=== PATIENT | female | born 1945 | race Caucasian/White ===

== ENCOUNTER → 2019-03-14 00:01 | Outpatient (RCR) | payer MEDICARE, OTHER, SELFPAY | LOC: WOUND 02-14 14:54 | PROVIDERS: Family Provider Family Medicine; Visit Provider Thoracic Surgery (Cardiothoracic Vascular Surgery) | DX: I96 Gangrene, not elsewhere classified (principal); L89.893 Pressure ulcer of other site, stage 3; L02.416 Cutaneous abscess of left lower limb; Z89.522 Acquired absence of left knee | CPT/HCPCS: 10060; 11042 ×2; 15271 ×3; 87070; 87075; 87205; Q4110 ×3 ==

== ENCOUNTER 2019-03-24 06:51 | Outpatient (CLI) | payer MEDICARE, OTHER, SELFPAY ==
--- NOTE | 2019-03-24 06:57 | ECG_ITS ---
NAME OF STUDY: LEXISCAN SESTAMIBI STRESS TEST INDICATION: Coronary Artery Disease, LEXISCAN STRESS TEST ORDERING PHYSICIAN: Estrella CLINICAL INFORMATION: Coronary artery disease, peripheral arterial disease, recurrent chest pain INTERPRETATION: 1. The patient was brought to the laboratory where Lexiscan was infused over 20 seconds. The resting blood pressure was 153/82. Maximum blood pressure was 196/126. The resting heart rate was 92 beats per minute. The maximum heart rate is 136 beats per minute. 2. The baseline electrocardiogram reveals sinus rhythm with poor R-wave progression and nonspecific ST-T wave changes 3. With Lexiscan infusion, there were no ST segment changes to suggest ischemia. 4. The patient experienced no symptoms or arrhythmias during the examination. CONCLUSION: 1. Unremarkable Lexiscan infusion. 2. Nuclear imaging to follow. Electronically Signed On 03-24-2019 14:36:33 FOOD QUALITY TESTER by Saurabh De La Rosa M.D. [id number]
--- NOTE | 2019-03-24 06:57 | NMCV_ITS ---
NM MIBI/MIBI Stress/Rest [id number] Bridgette Malik Age: 74 Gender: F : 1945 Exam Date: 03/24/2019 07:45 Ordering Phys: Saurabh De La Rosa MD ([email or web address]) Technologist: SEGUNDO Dudley Exam Location: [facility] Indications: CAD STRESS TEST Please see separate stress test report in [facility] for full findings IMAGE PROTOCOL Radiopharmaceutical Dose (mCi) Administration Site Administered by Rest: Tc-99m 10.6 IV SEGUNDO Dudley Sestamibi Stress:Tc-99m 31.7 IV SEGUNDO Dudley Sestamibi Rest: 24-Mar-2019 60 Discovery 630 Stress: 24-Mar-2019 60 Discovery 630 0.4mg Lexiscan. Supine position only as patient was unable to lay prone. SPECT RESULTS Technical Quality: Good Raw Data Analysis: Normal Image Corrections: No attenuation or motion correction applied Summed Stress Score: 24 Summed Rest Score: 17 Summed Difference Score: 7 PERFUSION FINDINGS Large area of fixed perfusion defect noted in basal to distal inferior and basal to mid inferolateral wall on both rest and stress images surrounded by mild reversibility suggestive of old myocardial infarction surrounded by mild leonie-infarct ischemia in either dominant RCA or circumflex territory. FUNCTIONAL RESULTS (calculated via Gated SPECT) Stress Image LV EF (%): 41 Stress EDV (mL):126 TID: 0.93 Stress ESV (mL):74 Rest Image LV EF (%): 41 FUNCTIONAL FINDINGS: Inferior and inferolateral wall akinesis IMPRESSIONS Large area of old myocardial infarction versus scarring noted in basal to distal inferior and inferolateral wall surrounded by mild leonie-infarct noted. Most likely represent dominant RCA or circumflex artery lesion. EKG segment will be documented separately. Colton Mason MD (Electronically Signed) Final Date: 24 March 2019 13:19 S
[2019-03-24 07:09] VITALS: BMI 24.3
[2019-03-24] MEDS: regadenoson 0.4 Mg/5 ml Syringe IVP (08:58)
[2019-03-24] MEDS: aminophylline 25 mg/mL SDV 10 mL IVP (09:06)
[2019-03-24 10:14] VITALS: BP 169/77; PULSE 106
== END 2019-03-24 06:52 | disposition home or self-care (01) ==
LOC: CDL 06:52
PROVIDERS: PCP Nurse Practitioner Family; Visit Provider Internal Medicine Cardiovascular Disease
DX: I25.10 Atherosclerotic heart disease of native coronary artery without angina pectoris (principal); Z95.5 Presence of coronary angioplasty implant and graft
CPT/HCPCS: 78452; 93017; 96374; A9500; J0280; J2785

== ENCOUNTER 2019-04-11 14:55 | Outpatient (RCR) | payer MEDICARE, OTHER, SELFPAY | END 2019-04-14 23:59 | disposition home or self-care (01) | LOC: WOUND 14:55 | PROVIDERS: Family Provider Family Medicine; PCP Family Medicine; Visit Provider Thoracic Surgery (Cardiothoracic Vascular Surgery) | DX: I96 Gangrene, not elsewhere classified (principal); L89.893 Pressure ulcer of other site, stage 3; L02.416 Cutaneous abscess of left lower limb; Z89.512 Acquired absence of left leg below knee | CPT/HCPCS: 10060; 11042; G0463; J2001 ==

== ENCOUNTER → 2019-04-12 13:47 | Outpatient (BNVA) | payer MEDICARE, OTHER, SELFPAY | PROVIDERS: PCP Nurse Practitioner Family; Visit Provider Family Medicine | DX: L72.3 Sebaceous cyst (principal); G57.92 Unspecified mononeuropathy of left lower limb; E78.5 Hyperlipidemia, unspecified; I10 Essential (primary) hypertension | CPT/HCPCS: 80053; 80061; 82044; 85025 ==

== ENCOUNTER 2019-04-24 05:51 | Day surgery (SDC) | payer MEDICARE, OTHER, SELFPAY ==
[2019-04-24] VITALS (9 sets, daily range): BP systolic 117–153; BP diastolic 51–73; PULSE 74–88; RESP 12–23; TEMP 36.4–36.8; O2SAT 93–100; BMI 24.4
[2019-04-24] MEDS: sodium chloride 0.9% 1,000 ML 30 ML IV (06:21)
--- NOTE | 2019-04-24 06:23 | PM.HPUD ---
H&P update H&P Update: DATE OF SURGERY/PROCEDURE: 04/24/19 DATE H&P PERFORMED: 04/18/19 H&P UPDATE INFORMATION: H&P completed within last 30 days, No changes to prior documentation and H&P is in [facility] on date indicated PREOP DIAGNOSIS: Dehiscence left AKA incision laterally; right facial cyst PRIMARY INDICATION FOR PROCEDURE: Debridement and removal of right facial cyst PLANNED PROCEDURE: Operation Date: 04/24/19 07:00 Proposed Procedures p Debridement aka wound; removal of right facial cyst- Candido Page MD Conscious Sedation: Patient reassessed prior to sedation, with no change noted: Yes PHYSICAL EXAM: alert, oriented x 3, regular rate & rhythm and operative site marked ADDITIONAL INFORMATION: Per anesthesia department Full H&P Medications/Allergies: Current Medications: Current Medications Generic Name Dose Route Start Last Admin Trade Name Freq PRN Reason Stop Dose Admin Sodium Chloride 1,000 mls @ 30 ml s/hr 04/24/19 06:15 04/24/19 06:21 Sodium Chloride 0.9% IV 04/25/19 06:14 30 mls/hr .Q24H CORKY Administration Perinent History: Medical/Surgical History: Medical History (Updated 04/12/19 @ 13:41 by Jhoana Gross DO) Above knee amputation of left lower extremity (Acute) 09/2018 Acquired hallux rigidus of left foot (Acute) Acute on chronic combined systolic (congestive) and diastolic (congestive) heart failure (Acute) Anemia, deficiency (Acute) Aneurysm of aorta (Acute) ASHD (arteriosclerotic heart disease) (Acute) Bilateral carotid artery occlusion (Acute) Bilateral carotid bruits (Acute) CKD (chronic kidney disease) (Acute) Colonization with multidrug-resistant bacteria (Acute) COPD (chronic obstructive pulmonary disease) (Acute) Coronary artery disease with angina pectoris (Acute) Dyslipidemia (Chronic) E. coli infection (Acute) GERD (gastroesophageal reflux disease) (Acute) History of stent insertion of renal artery (Acute) X 3 LEFT KIDNEY HTN (hypertension) (Chronic) Ischemic cardiomyopathy (Acute) Mitral regurgitation (Acute) Neuropathic pain of left lower extremity (Chronic) Non-functioning kidney (Acute) Non-healing wound of amputation stump (Acute) Old [place] (myocardial infarction) (Acute) PAD (peripheral artery disease) (Acute) Skin wound from surgical incision (Acute) Sleep apnea (Acute) Vasculopathy (Acute) Family History: Family History (Updated 03/24/19 @ 07:22 by Lucero Guaman RN) Father CAD (coronary artery disease) Social History: Social History Smoking and tobacco status: current every day smoker cigarettes Packs smoked per day: 0.5 (PPD) Alcohol intake: current Alcohol intake frequency: holidays/special occasions only
--- NOTE | 2019-04-24 06:43 | ANES.PREANE2 ---
Pre-Anesthetic Assessment Pre-Anesthetic Assessment: Height/Weight: Height 1.6 m Weight 62.596 kg Temp Pulse Resp BP Pulse Ox 97.5 F L 74 18 121/66 94 04/24/19 06:03 04/24/19 06:03 04/24/19 06:03 04/24/19 06:03 04/24/19 06:03 Preop Diagnosis: Dehiscence left AKA incision laterally; right facial cyst Proposed Procedure: Operation Date: 04/24/19 07:00 Proposed Procedures p Debridement aka wound(Not Applicable) - Candido Page MD Last intake: Intake Last Liquid Date 04/23/19 Last Liquid Time 18:00 Last Solid Date 04/23/19 Last Solid Time 16:00 Social: Social History: Alcohol (occ) and Tobacco Exam: Pre-Anes Outpt Exam: alert, oriented x 3, clear to auscultation bilaterally and regular rate & rhythm Airway: Submandibular: WNL Cervical ROM: Other (limited) MP: 1 Dentition: Full Pulmonary: Pulmonary: COPD and OLGUIN CV/HEM: CV/HEM: Anemia, CAD, CHF, HTN, OR and PVD : : Chronic renal Insufficiency Hepatic: Hepatic: None reported GI: GI: None reported Metabolic: Metabolic: Hyperlipidemia Musc/skel: Musc/skel: OA/DJD and Weakness Neuropsych: Neuropsych: Anxiety, Depression and Neuropathy Anesthetic Plan: ASA status: 4 Anesthesia: Anesthesia Evaluation and General Risk of > 500 ml blood loss (7ml/kg in children): No Meds/Allergies Current Medications: Current Medications Generic Name Dose Route Start Last Admin Trade Name Freq PRN Reason Stop Dose Admin Sodium Chloride 1,000 mls @ 30 ml s/hr 04/24/19 06:15 04/24/19 06:21 Sodium Chloride 0.9% IV 04/25/19 06:14 30 mls/hr .Q24H CORKY Administration PFSH Anesthesia PFSH: Medical History Above knee amputation of left lower extremity (Acute) 09/2018 Acquired hallux rigidus of left foot (Acute) Acute on chronic combined systolic (congestive) and diastolic (congestive) heart failure (Acute) Anemia, deficiency (Acute) Aneurysm of aorta (Acute) ASHD (arteriosclerotic heart disease) (Acute) Bilateral carotid artery occlusion (Acute) Bilateral carotid bruits (Acute) CKD (chronic kidney disease) (Acute) Colonization with multidrug-resistant bacteria (Acute) COPD (chronic obstructive pulmonary disease) (Acute) Coronary artery disease with angina pectoris (Acute) Dyslipidemia (Chronic) E. coli infection (Acute) GERD (gastroesophageal reflux disease) (Acute) History of stent insertion of renal artery (Acute) X 3 LEFT KIDNEY HTN (hypertension) (Chronic) Ischemic cardiomyopathy (Acute) Mitral regurgitation (Acute) Neuropathic pain of left lower extremity (Chronic) Non-functioning kidney (Acute) Non-healing wound of amputation stump (Acute) Old [place] (myocardial infarction) (Acute) PAD (peripheral artery disease) (Acute) Skin wound from surgical incision (Acute) Sleep apnea (Acute) Vasculopathy (Acute) Surgical History H/O breast surgery (Acute) H/O cataract extraction (Acute) H/O facial fracture repair (Acute) History of AAA (abdominal aortic aneurysm) repair (Acute) 06/2015 History of hysterectomy (Acute) Presence of stent in coronary artery (Acute) S/P amputation (Acute) Family History Father CAD (coronary artery disease) Social History Smoking and tobacco status: current every day smoker cigarettes Packs smoked per day: 0.5 (PPD) Alcohol intake: current Alcohol intake frequency: holidays/special occasions only Data Anesthesia Cardiac Studies: No Data to Display
[2019-04-24 06:44] LABS: Basophils # 0.1 10^3/uL (0.0-0.1); Basophils % 0.7 %; Eosinophils # 0.2 10^3/uL (0.0-0.8); Hematocrit 36.2 % (37.0-47.0); Hemoglobin 11.2 g/dL (11.5-15.3); Lymphocytes % 23.3 %; Mean Corpuscular HGB Conc 30.9 g/dL (30.0-36.0); Mean Corpuscular Hemoglobin 27.6 pg (28.0-34.0); Mean Corpuscular Volume 89.2 fL (81-99); Monocytes # 0.6 10^3/uL (0.2-0.9); Monocytes % 7.3 %; Neutrophils # 5.6 10^3/uL (1.8-7.7); Neutrophils % 66.3 %; Nucleated Red Blood Cells % 0 %; Platelet Count 244 10^3/cmm (130-400); Red Blood Count 4.06 10^6/uL (4.1-5.3); Red Cell Distribution Width 13.7 % (12.1-15.1); White Blood Count 8.4 10^3/uL (4.0-10.0)
[2019-04-24 06:54] LABS: INR 0.99 (0.8-1.2)
[2019-04-24 07:07] LABS: Anion Gap 16.5 (5-19); Blood Urea Nitrogen 30 mg/dL (8-23); Calcium 9.7 mg/dL (8.5-10.5); Carbon Dioxide 27 mmol/L (22-29); Chloride 101 mmol/L (98-107); Glucose 102 mg/dL (65-115); Osmolality Calculated 287 mOsm/kg (285-295); Potassium 4.5 mmol/L (3.5-5.1); Sodium 140 mmol/L (136-145)
[2019-04-24] MEDS: ceFAZolin 1,000 mg SDV 1000 MG IRRIGATION (07:24)
[2019-04-24] MEDS: lidocaine 1% INJ 20 mL IM (07:37)
[2019-04-24] MEDS: neomycin-poly-bacitracin oint 28 gm 1 APPLIC TOPICAL (07:38)
--- NOTE | 2019-04-24 08:01 | PM.OP ---
Operative Report Date of procedure: April 24, 2019 Pre-op Diagnosis: Dehiscence left AKA incision laterally; right facial cyst Post-op diagnosis: same Procedure Done: Epidermal cyst excision right face malar region; Debridement of lateral wound left AKA wound measurements after debridement 2.5 cm in length, 1 cm in width, 6 cm in depth Specimens removed/disposition: Cultures from left AKA wound Surgeon: Candido Page Anesthesia: General Complications: None Condition: stable Disposition: PACU Brief History: 74-year-old female status post left above-knee amputation for severe non-extractable peripheral vascular disease with distal tissue loss. Wound is healed except for the lateral margin which continues to require local debridements in the wound care service. I recommended formal exploration under anesthesia. She also has a right facial cyst which clinically appears to be an epidermal cyst. She is requested that we remove it as well. Details the risk of the procedure carefully discussed. Proper consents reviewed and signed. Procedure: After individually and separately sterile prepping and draping both areas, initially a incision was made with a #15 scalpel blade over the cyst in the malar region of the right face. This continue down through the epidermis and using a very small hemostat bluntly dissecting free this epidermal cyst. Was completely circumferentially dissected free it was removed intact. Wound was irrigated with antibiotic solution. Two 3-0 Vicryl sutures were placed deep followed by interrupted 5-0 nylon suture. Triple antibiotic ointment was then applied followed by sterile dressing. We then turned our attention to the lateral left AKA wound. Sharp debridement was performed utilizing Metzenbaum scissors and a #15 scalpel blade where a cavity was entered just below the bed of the wound. This extended deeper 6 operators. There was no tyra purulence noted though quite a bit of fibrous tissue was excised. Specimens were collected for culture. Once completed, the wound was carefully irrigated. Hemostasis confirmed. Final measurements were 2.5 cm in length by 1 cm in width by 6 cm of depth. Wet-to-dry dressing was then applied followed by a covered sponge dressing. Ms. Malik tolerated procedure well she is awakened extubated and taken to the postoperative care unit. I did consumer credit counselor with family completion of the procedure. She will be seen in wound care services tomorrow.
--- NOTE | 2019-04-24 08:15 | SUR.PHASEI ---
pt awakes to voice but remains very drowsy, vss incision to rt cheek with charles stitches, lt stump dressing D/I ELEVATEDON PILLOW PT NOW ON 3LNC PT IN ON O2 AT HOME.
--- NOTE | 2019-04-24 08:36 | SUR.PHASEI ---
0822 PT AWAKE ALERT TO OPS TALKATIVE TAKING SIPS OF COFFEE, PT COUGHING UP THICK CLEAR SECRETIONS OFF AND ON.
== END 2019-04-24 09:22 | disposition home or self-care (01) ==
PROVIDERS: Family Provider Family Medicine; PCP Nurse Practitioner Family; Visit Provider Thoracic Surgery (Cardiothoracic Vascular Surgery)
PROC: (CPT 11042; principal; 2019-04-24 07:00)
PROC: (CPT 11042; 2019-04-24 07:00)
DX: T81.31XA Disruption of external operation (surgical) wound, not elsewhere classified, initial encounter (principal); L72.3 Sebaceous cyst; J44.9 Chronic obstructive pulmonary disease, unspecified; I25.10 Atherosclerotic heart disease of native coronary artery without angina pectoris; I11.0 Hypertensive heart disease with heart failure; I50.9 Heart failure, unspecified; I25.2 Old myocardial infarction; E78.5 Hyperlipidemia, unspecified; M19.90 Unspecified osteoarthritis, unspecified site; G47.30 Sleep apnea, unspecified; F17.210 Nicotine dependence, cigarettes, uncomplicated
CPT/HCPCS: 11042; 11440; 12345; 36416; 80048; 85025; 85610; 87070; 87075; 87205; 88304; J0690; J2001; J2405; J2704; J3010; J7030

== ENCOUNTER 2019-05-09 13:49 | Outpatient (RCR) | payer MEDICARE, OTHER, SELFPAY | END 2019-05-13 23:59 | disposition home or self-care (01) | LOC: WOUND 13:49 | PROVIDERS: Family Provider Family Medicine; PCP Nurse Practitioner Family; Visit Provider Thoracic Surgery (Cardiothoracic Vascular Surgery) | DX: L02.416 Cutaneous abscess of left lower limb (principal); L97.822 Non-pressure chronic ulcer of other part of left lower leg with fat layer exposed; Z89.612 Acquired absence of left leg above knee | CPT/HCPCS: 11042; 99213; G0463 ==

== ENCOUNTER 2019-06-13 13:05 | Outpatient (RCR) | payer MEDICARE, OTHER, SELFPAY | END 2019-06-13 23:59 | disposition home or self-care (01) | LOC: WOUND 13:05 | PROVIDERS: Family Provider Family Medicine; PCP Nurse Practitioner Family; Visit Provider Thoracic Surgery (Cardiothoracic Vascular Surgery) | DX: L02.416 Cutaneous abscess of left lower limb (principal); Z89.612 Acquired absence of left leg above knee | CPT/HCPCS: 11042; 15271; A6446; Q4110 ==

== ENCOUNTER 2019-07-11 13:17 | Outpatient (RCR) | payer MEDICARE, OTHER, SELFPAY | END 2019-07-13 23:59 | disposition home or self-care (01) | LOC: WOUND 13:17 | PROVIDERS: Family Provider Family Medicine; PCP Nurse Practitioner Family; Visit Provider Thoracic Surgery (Cardiothoracic Vascular Surgery) | DX: L02.416 Cutaneous abscess of left lower limb (principal); Z89.612 Acquired absence of left leg above knee | CPT/HCPCS: 11042; 99211; 99212 ==

== ENCOUNTER 2019-10-12 11:44 | Outpatient (CLI) | payer MEDICARE, OTHER, SELFPAY ==
--- NOTE | 2019-10-12 12:00 | USCV_ITS ---
Mlaik Bridgette Age: 74 Gender: F : 1945 Exam Date: 10/12/2019 11:38 Ordering Phys: Saurabh De La Rosa MD ([email or web address]) Technologist: Matilde Jones Exam Location[place] [facility] [place] Indication: CAROTID DX SURVEILLANCE Risk Factors: Previous Vascular Surgery: Right Brachial BP: / Left Brachial BP: / Right Left Velocity (cm/s) Spectral Plaque Velocity (cm/s) Spectral Plaque Syst/Diast Broadening Syst/Diast Broadening 38.10/ 12.40 Prox CCA 77.80 / 12.80 36.50/ 19.40 Mid CCA 41.10 / 13.90 40.40/ 20.20 Distal CCA 57.10 / 13.90 131.30/45.00 Prox ICA 116.90/ 46.30 136.70/32.40 Mid ICA 131.50/ 40.80 102.50/28.80 Distal ICA 101.20/ 28.90 88.60 ECA 73.00 3.74 ICA/CCA 3.20 Antegrade Vertebral Antegrade 46.00/ 7.90 cm/s 67.30/ 17.60 cm/s Tri Subclavian Tri 56.50 142.1 0 CONCLUSIONS Technically difficult study. Recommend Further evaluation with CTA as velocities may be underestimated. Right ICA stenosis 50-69%. Mild atheromatous plaque right carotid bulb/ICA. Left ICA stenosis <50%. Mild atheromatous plaque left carotid bulb/ICA. Normal antegrade Doppler flow noted in the right vertebral artery. Normal antegrade Doppler flow noted in the left vertebral artery. Ricardo Cummings MD (Electronically Signed) Final Date: 12 October 2019 16:37 S
== END 2019-10-12 11:45 | disposition home or self-care (01) ==
LOC: US 11:45
PROVIDERS: PCP Family Medicine; Visit Provider Internal Medicine Cardiovascular Disease
DX: I65.23 Occlusion and stenosis of bilateral carotid arteries (principal)
CPT/HCPCS: 93880

== ENCOUNTER → 2019-11-23 09:48 | Outpatient (BNVA) | payer MEDICARE, OTHER, SELFPAY | PROVIDERS: PCP Family Medicine; Referring Provider Internal Medicine Cardiovascular Disease; Visit Provider Dermatology | DX: D48.5 Neoplasm of uncertain behavior of skin (principal); L57.0 Actinic keratosis; L98.9 Disorder of the skin and subcutaneous tissue, unspecified; F17.210 Nicotine dependence, cigarettes, uncomplicated; D48.9 Neoplasm of uncertain behavior, unspecified | CPT/HCPCS: 11102; 17000; 17003; 88304; 99203; 99204; 99213 ==

== ENCOUNTER → 2020-02-29 14:47 | Outpatient (BNVA) | payer MEDICARE, OTHER, SELFPAY | PROVIDERS: PCP Family Medicine; Visit Provider Family Medicine | DX: J43.1 Panlobular emphysema (principal); J32.9 Chronic sinusitis, unspecified; I10 Essential (primary) hypertension; E78.5 Hyperlipidemia, unspecified | CPT/HCPCS: 80053; 80061; 85025 ==

== ENCOUNTER 2020-03-05 14:30 | Outpatient (CLI) | payer MEDICARE, OTHER, SELFPAY ==
--- NOTE | 2020-03-05 15:30 | CT_ITS ---
WS: [id number] CT SINUSES TECHNIQUE: Noncontrast CT of the paranasal sinuses with coronal and sagittal reformatted images. CLINICAL INFORMATION: recurrent sinusitis COMPARISON: None. DLP: All CT scans at [facility] use at least one of these dose optimization techniques: automat ed exposure control; mA and/or kV adjustment per patient size (includes targeted exams where dose is matched to clinical indication); or iterative reconstruction. FINDINGS:Normal underlying subcutaneous soft tissues in the area of palpable concern posterior to the right mastoid air cells. No underlying pathologic abnormality. Mastoid air cells are well aerated. Mild mucosal thickening left mastoid tip. Paranasal sinuses are w ell aerated. Mild mucosal thickening ethmoid air cells. Sphenoid sinuses are well aerated. Right Agge r Nasi air cell. Mild right to left nasal septal deviation measuring 4 mm. Mild narrowing of the ostiomeatal units jordan aterally. Chronic appearing concavity to the right anterior maxillary sinus likely due to remote prio r healed fracture. Partially visualized intracranial contents demonstrate moderate small vessel changes with moderate pa renchymal volume loss. Chronic lacunar infarcts in the basal ganglia partially visualized. CT/CT sinus wo con* [id number] IMPRESSION: 1. Paranasal sinuses are well aerated. Mild narrowing of the ostiomeatal units bilaterally. 2. Mild right to left nasal septal deviation measuring 3-4 mm. 3. Mastoid air cells well aerated. Slight mucosal thickening left mastoid tip. 4. Concavity to the right anterior wall maxillary sinus likely due to prior re mote healed fracture. 5. Partially visualized intracranial contents demonstrate moderate small vesse l changes.
== END 2020-03-05 14:31 | disposition home or self-care (01) ==
LOC: RADWPI 14:33
PROVIDERS: PCP Family Medicine; Visit Provider Family Medicine
DX: J32.9 Chronic sinusitis, unspecified (principal); J34.2 Deviated nasal septum
CPT/HCPCS: 70486

== ENCOUNTER → 2020-04-05 14:08 | Outpatient (BNVA) | payer MEDICARE, OTHER, SELFPAY | PROVIDERS: PCP Family Medicine; Visit Provider Family Medicine | DX: J30.89 Other allergic rhinitis (principal); L85.3 Xerosis cutis; M54.2 Cervicalgia; G89.29 Other chronic pain; Z68.25 Body mass index [BMI] 25.0-25.9, adult; F17.219 Nicotine dependence, cigarettes, with unspecified nicotine-induced disorders; Z71.6 Tobacco abuse counseling; Z71.89 Other specified counseling | CPT/HCPCS: 84443 ==

== ENCOUNTER → 2020-09-09 11:42 | Outpatient (BNVA) | payer MEDICARE, OTHER, SELFPAY | PROVIDERS: PCP Family Medicine; Visit Provider Family Medicine | DX: I10 Essential (primary) hypertension (principal); F41.0 Panic disorder [episodic paroxysmal anxiety] | CPT/HCPCS: 80053; 82043 ==

== ENCOUNTER → 2021-04-14 09:25 | Outpatient (BNVA) | payer MEDICARE, OTHER, SELFPAY | PROVIDERS: PCP Family Medicine; Visit Provider Family Medicine | DX: I10 Essential (primary) hypertension (principal); E78.5 Hyperlipidemia, unspecified; J01.10 Acute frontal sinusitis, unspecified; F17.219 Nicotine dependence, cigarettes, with unspecified nicotine-induced disorders; Z85.828 Personal history of other malignant neoplasm of skin | CPT/HCPCS: 80053; 80061; 82043; 85025 ==

== ENCOUNTER 2021-04-22 14:48 | Inpatient (IN) | payer MEDICARE, OTHER, SELFPAY ==
[2021-04-22] VITALS (18 sets, daily range): BP systolic 142–191; BP diastolic 66–92; PULSE 67–110; RESP 18–25; TEMP 37; O2SAT 88–99; BMI 26.2
--- NOTE | 2021-04-22 15:43 | XR_ITS ---
WS: [id number] XR chest 1V portable [id number] REASON FOR EXAM: sob FINDINGS: Moderate to mild tortuosity of the thoracic aorta with calcification. No aneurysmal dilatation. No significant cardiomegaly. Calcified granulomatous disease in both hemithoraces. No acute pulmonary parenchymal or pleural abnormality. Degenerative changes in the mid and lower thoracic spine and the shoulder joints. XR/XR chest 1V portable [id number] IMPRESSION: No acute chest abnormality.
--- NOTE | 2021-04-22 15:43 | ECG_ITS ---
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 Measurements Intervals [place] Rate: 70 P: 84 MT: 184 QRS: 69 QRSD: 96 T: 26 QT: 362 QTc: 393 Interpretive Statements SINUS RHYTHM LOW QRS VOLTAGE IN EXTREMITY LEADS [QRS DEFLECTION < 0.5 mV IN LIMB LEADS] POSSIBLE ANTERIOR MYOCARDIAL INFARCTION , OF INDETERMINATE AGE [30 ms Q WAVE IN V3/V4, OR R < 0.2 mV IN V4] Compared to ECG 10/04/2016 05:11:06 Low QRS voltage now present Myocardial infarct finding now present Sinus bradycardia no longer present T-wave abnormality no longer present Possible ischemia no longer present Electronically Signed On 04-22-2021 20:53:50 MIXER LEVER OPERATOR by Carter Wallis M.D. [id number]
--- NOTE | 2021-04-22 17:20 | W.ED.SOB ---
Documented by User: ALBERTINA Julio 04/23/21 00:06 HPI - SOB/Dyspnea General: Chief Complaint: Shortness of Breath/Dyspnea Stated Complaint: SOB Time Seen by Provider: 04/22/21 17:17 Source: patient and family Mode of arrival: ambulatory Limitations: no limitations History of Present Illness: HPI Narrative: Patient is a 76-year-old female presents to ED today along with her daughter for complaints of shortness of breath over the past 3 to 4 days. Patient states approximately 2 weeks ago she was seen by her PCP for head pressure/nasal congestion and states she was placed on antibiotics for a possible ear infection and sinusitis. Patient states she is not improving. She is complaining of shortness of breath, productive cough, weakness, and feels tremulous. Patient states she wears oxygen/CPAP at night but normally does not require oxygen during the day. Patient states she has been having to wear 3 L as her O2 sats on room air were approximately 87%. PMH is significant for COPD, hyperlipidemia HTN, AKA of left leg, CHF, CKD, CAD, PVD. MD elicited complaint: shortness of breath Pertinent past history: COPD Onset (ago): day(s) Timing: constant Severity: severe Exacerbating factors: lying flat and exertion Relieving factors: oxygen Known history of: COPD Associated symptoms: Reports chest congestion and orthopnea; Deny abdominal pain, chest pain, dizziness, fever(s), hemoptysis, lightheadedness, nausea, palpitations, syncope or vomiting Review of Systems Const: Denies: fever(s), chills, body aches, change in appetite, change in weight, fatigue or malaise ENMT: Reports: nasal discharge and nasal congestion Card: Reports: dyspnea on exertion and orthopnea; Denies: chest pain, palpitations, irregular heart rhythm, edema, swelling of feet/ankles, lightheadedness, syncope or pre-syncope Resp: Reports: dyspnea, productive cough, pain on inspiration and chest congestion; Denies: wheezing, stridor or hemoptysis GI: Denies: abdominal pain, nausea, vomiting or diarrhea Musc: Denies: neck pain or back pain Skin/Breast: Denies: rash Neuro: Reports: headache(s); Denies: numbness in extremities, weakness in extremities, sensory changes, difficulty walking, dizziness or confusion PFS ED PFSH: Medical History (Updated 04/22/21 @ 23:37 by Kobi Thakkar MD) 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 coli infection GERD (gastroesophageal reflux disease) History of stent insertion of renal artery X 3 LEFT KIDNEY HTN (hypertension) Ischemic cardiomyopathy Mitral regurgitation Neuropathic pain of left lower extremity Non-functioning kidney Non-healing wound of amputation stump Old LA (myocardial infarction) PAD (peripheral artery disease) Single kidney Skin lesion Skin wound from surgical incision Sleep apnea Vasculopathy Surgical History H/O breast surgery H/O cataract extraction H/O facial fracture repair History of AAA (abdominal aortic aneurysm) repair 06/2015 History of hysterectomy Presence of stent in coronary artery S/P amputation Family History Father CAD (coronary artery disease) Social History Smoking and tobacco status: current every day smoker cigarettes Packs smoked per day: 0.5 (PPD) Quit status (tobacco): not considering quitting Second hand smoke exposure: Yes Alcohol intake: current Alcohol intake frequency: holidays/special occasions only Desire information about alcohol rehabilitation?: No Desire information about substance/drug rehabilitation?: No Physical Exam Const: COMMON NORMALS: patient oriented x3, no limitations and alert GENERAL APPEARANCE: cooperative and in distress (appears short of breath) ORIENTATION/CONSCIOUSNESS: Yes awake, Yes oriented to person, Yes oriented to place and Yes oriented to time HENMT: COMMON NORMALS: normocephalic and atraumatic HEAD & SCALP: normocephalic and atraumatic Chest: COMMONS NORMALS: normal inspection of the chest and normal palpation of entire chest wall Resp: EFFORT & INSPECTION: Yes labored AUSCULTATION: rhonchi Cardio: COMMON NORMALS: regular rate and regular rhythm RATE: regular rate RHYTHM: regular rhythm Extremity: NARRATIVE EXTREMITY EXAM: L AKA Neuro: COMMON NORMALS: patient oriented x3 SENSORIUM/ORIENTATION: Yes alert, Yes oriented to person, Yes oriented to place and Yes oriented to time Course Vital Signs: Vital signs: Vital Signs Temperature 98.6 F 04/22/21 15:27 Pulse Rate 98 04/22/21 23:03 Respiratory Rate 19 H 04/22/21 23:03 Blood Pressure 146/66 04/22/21 23:03 Pulse Oximetry 93 04/22/21 23:03 MDM - SOB/Dyspnea Medical Decision Making Patient is a 76-year-old female with a vast PMH here for complaints of dyspnea over the past 3 to 4 days. She normally does not require oxygen during the day but is now requiring 3L. CXR is normal. D-dimer was ordered by Dr. Jennings in triage and was significantly elevated at over 6 therefore CTA imaging was ordered. Unfortunately this was completed prior to the results of her CMP. Patient was noted to have a critically high potassium at 7.8. She has a history of CKD and creatinine was elevated compared to her baseline. Patient's initial troponin is 54 with a negative delta. She has no ischemic changes on her EKG. She did have some minimal changes related to her hyperkalemia. Dr. Jennings has been aware of this patient since critical results were reported and he has seen and evaluated her and given verbal orders to myself for treatment of her potassium. We have started her on multiple medications for her hyperkalemia. Patient's rapid COVID is negative. CTA imaging does not show any PE. At this time patient will require hospitalization for hyperkalemia, acute on chronic renal failure, COPD exacerbation. I spoken to Dr. Thakkar who will evaluate patient in ED and admit. Dr Dick Jackson I evaluated the patient with Natacha Lee our physician assistant professor of life sciences. Patient is found to have a critically high troponin of 7.8 that is similar on repeat evaluation. Patient is able to produce urine. Patient has only one kidney at this time. We have given patient 80 mg of Lasix, 2g of calcium gluconate, 10 mg of regular insulin, D10 drip going at 125 cc/h. Patient could not tolerate 20 mg of albuterol nebulization in the emergency room, and since then, we opted for 0.5 mg of subcu terbutaline. Repeat potassium 7.3. Case was discussed with Dr. Thakkar who is aware of these findings. Initial EKG showed mildly peaked T waves without any QRS widening. Repeat EKG showed mild improvement in the peak T waves. Patient is producing adequate urine. He will be admitted to cardiac stepdown for close monitoring. Will defer decision for dialysis to the next team given adequate urine output. Lab Data : 04/22/21 17:41 04/22/21 22:10 Labs/Radiology: Radiology Impressions Chest X-Ray 04/22/21 15:43 IMPRESSION: No acute chest abnormality. Chest CTA 04/22/21 18:19 IMPRESSION: 1. No evidence for pulmonary embolus. 2. Old granulomatous disease. 3. Atrophic left kidney. COMMENTS: Consistent with the [employer]'s Incidental Findings Committee white paper (J Am David Radiol 2018): Any incidental renal lesion less than 1 cm or classified as too small to characterize, or any incidental cystic renal lesion characterized as simple-appearing, is likely benign. No follow-up imaging is recommended for these lesions per consensus recommendations based on imaging criteria. Laboratory Results WBC 11.0 10^3/uL (4.0-10.0) H 04/22/21 17:41 RBC 4.19 10^6/uL (4.1-5.3) 04/22/21 17:41 Hgb 11.9 g/dL (11.5-15.3) 04/22/21 17:41 Hct 38.7 % (37.0-47.0) 04/22/21 17:41 MCV 92.4 fl (81-99) 04/22/21 17:41 MCH 28.4 pg (28.0-34.0) 04/22/21 17:41 MCHC 30.7 g/dL (30.0-36.0) 04/22/21 17:41 RDW 13.6 % (12.1-15.1) 04/22/21 17:41 Plt Count 247 10^3/cmm (130-400) 04/22/21 17:41 MPV 10.3 fL (7.4-10.4) 04/22/21 17:41 Neut % (Auto) 73.4 % 04/22/21 17:41 Lymph % (Auto) 19.2 % 04/22/21 17:41 Granite % (Auto) 5.4 % 04/22/21 17:41 Eos % (Auto) 1.1 % 04/22/21 17:41 Baso % (Auto) 0.5 % 04/22/21 17:41 Neut # (Auto) 8.09 10^3/uL (1.8-7.7) H 04/22/21 17:41 Lymph # (Auto) 2.1 10^3/uL (0.8-4.8) 04/22/21 17:41 Granite # (Auto) 0.6 10^3/uL (0.2-0.9) 04/22/21 17:41 Eos # (Auto) 0.1 10^3/uL (0.0-0.8) 04/22/21 17:41 Baso # (Auto) 0.1 10^3/uL (0.0-0.1) 04/22/21 17:41 Nucleated RBC % (auto) 0 % 04/22/21 17:41 Nucleated RBCs # 0.0 /100WBC 04/22/21 17:41 D-Dimer 6.26 ug/mIFEU (0-0.59) H 04/22/21 17:41 Specimen Type Arterial 04/22/21 20:53 Sample Site Brachial, right 04/22/21 20:53 ABG pH 7.20 (7.35-7.45) L 04/22/21 20:53 ABG pCO2 53.8 mmHg (35-45) H 04/22/21 20:53 ABG pO2 72.2 mmHg (80.0-100.0) L 04/22/21 20:53 ABG HCO3 20.9 mmol/L (22-26) L 04/22/21 20:53 ABG O2 Saturation 93.2 04/22/21 20:53 ABG Base Excess -7.5 mmol/L (-2.0-2.0) L 04/22/21 20:53 Jean Test Pos 04/22/21 20:53 A-a O2 Gradient 11.7 mmHg (5-10) H 04/22/21 20:53 Hematocrit 38.5 % (37-47) 04/22/21 20:53 Hgb O2 Saturation 90.6 % (95-100) L 04/22/21 20:53 Carboxyhemoglobin 1.5 %THgb (0.4-20.1) 04/22/21 20:53 Methemoglobin 1.2 % (0.4-1.5) 04/22/21 20:53 Total Hemoglobin 12.5 g/dL (12-16) 04/22/21 20:53 Sodium 136.0 mmol/L (131-143) 04/22/21 20:53 Potassium 7.2 mmol/L (3.5-5.0) H 04/22/21 20:53 Glucose 124.0 mg/dL (70-115) H 04/22/21 20:53 Ionized Calcium 1.5 mmol/L (1.1-1.4) H 04/22/21 20:53 O2 Delivery Device Nc 04/22/21 20:53 O2 Liters/Min 3.0 % 04/22/21 20:53 FiO2 32.0 % 04/22/21 20:53 Psychology Intern ID [place] 04/22/21 20:53 Sodium 130 mmol/L (136-145) L 04/22/21 19:52 Potassium 6.4 mmol/L (3.5-5.1) H 04/22/21 22:10 Chloride 104 mmol/L (98-107) 04/22/21 19:52 Carbon Dioxide 18 mmol/L (22-29) L 04/22/21 19:52 Anion Gap 15.1 (5-19) 04/22/21 19:52 BUN 71 mg/dL (8-23) H 04/22/21 19:52 Creatinine 2.2 mg/dL (0.5-0.9) H 04/22/21 19:52 GFR Calculation Not Reportable 04/22/21 19:52 Glucose 95 mg/dL (65-115) 04/22/21 19:52 POC Glucose 195 mg/dL (70-110) H 04/22/21 22:12 Calculated Osmolality 291 mOsm/kg (285-295) 04/22/21 19:52 Calcium 9.3 mg/dL (8.5-10.5) 04/22/21 19:52 Magnesium 2.4 mg/dL (1.7-2.3) H 04/22/21 17:41 Total Bilirubin 0.2 mg/dL (0.15-1.2) 04/22/21 17:41 AST 19 U/L (0-32) 04/22/21 17:41 ALT 12 U/L (0-33) 04/22/21 17:41 Alkaline Phosphatase 78 IU/L (35-105) 04/22/21 17:41 Troponin T Baseline 54 ng/L (0-10) H 04/22/21 17:41 Troponin T 120 Minute 46.26 ng/L (0-10) H 04/22/21 19:52 Delta Troponin T -7.74 ABS# (0-10) L 04/22/21 19:52 NT-Pro-B Natriuret Pep 979 pg/mL (0-450) H 04/22/21 17:41 Total Protein 6.5 g/dL (6.6-8.7) L 04/22/21 17:41 Albumin 4.6 g/dL (3.5-5.2) 04/22/21 17:41 Globulin 1.9 g/dL (1.3-4.6) 04/22/21 17:41 SARS-CoV-2 Ag (Rapid) Negative (Negative) 04/22/21 17:52 Discharge Plan Discharge Patient Disposition: Admitted As Inpatient Admit Provider: Kobi Thakkar Condition: Stable Coding Level of Care Code ED Sap Director for Chg Fwd Exam Detailed Documented by User: Sanya Jennings MD 04/22/21 23:18 HPI - SOB/Dyspnea General: Chief Complaint: Shortness of Breath/Dyspnea Stated Complaint: SOB Time Seen by Provider: 04/22/21 17:17 [facility] ED PFSH: Medical History (Updated 04/22/21 @ 23:37 by Kobi Thakkar MD) 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 coli infection GERD (gastroesophageal reflux disease) History of stent insertion of renal artery X 3 LEFT KIDNEY HTN (hypertension) Ischemic cardiomyopathy Mitral regurgitation Neuropathic pain of left lower extremity Non-functioning kidney Non-healing wound of amputation stump Old LA (myocardial infarction) PAD (peripheral artery disease) Single kidney Skin lesion Skin wound from surgical incision Sleep apnea Vasculopathy Surgical History H/O breast surgery H/O cataract extraction H/O facial fracture repair History of AAA (abdominal aortic aneurysm) repair 06/2015 History of hysterectomy Presence of stent in coronary artery S/P amputation Family History Father CAD (coronary artery disease) Social History Smoking and tobacco status: current every day smoker cigarettes Packs smoked per day: 0.5 (PPD) Quit status (tobacco): not considering quitting Second hand smoke exposure: Yes Alcohol intake: current Alcohol intake frequency: holidays/special occasions only Desire information about alcohol rehabilitation?: No Desire information about substance/drug rehabilitation?: No Course Vital Signs: Vital signs: Vital Signs Temperature 98.6 F 04/22/21 15:27 Pulse Rate 98 04/22/21 23:03 Respiratory Rate 19 H 04/22/21 23:03 Blood Pressure 146/66 04/22/21 23:03 Pulse Oximetry 93 04/22/21 23:03 MDM - SOB/Dyspnea Medical Decision Making Patient is a 76-year-old female with a vast PMH here for complaints of dyspnea over the past 3 to 4 days. She normally does not require oxygen during the day but is now requiring 3L. CXR is normal. D-dimer was ordered by Dr. Jennings in triage and was significantly elevated at over 6 therefore CTA imaging was ordered. Unfortunately this was completed prior to the results of her CMP. Patient was noted to have a critically high potassium at 7.8. She has a history of CKD and creatinine was elevated compared to her baseline. Patient's initial troponin is 54 with a negative delta. She has no ischemic changes on her EKG. She did have some minimal changes related to her hyperkalemia. Dr. Jennings has been aware of this patient since critical results were reported and he has seen and evaluated her. We have started her on multiple medications for her hyperkalemia. Patient's rapid COVID is negative. CTA imaging does not show any PE. At this time patient will require hospitalization for hyperkalemia, acute on chronic renal failure, COPD exacerbation. I spoken to Dr. Thakkar who will evaluate patient in ED and admit. Dr Dick Jackson I evaluated the patient with Natacha Lee our physician assistant professor of life sciences. Patient is found to have a critically high troponin of 7.8 that is similar on repeat evaluation. Patient is able to produce urine. Patient has only one kidney at this time. We have given patient 80 mg of Lasix, 2g of calcium gluconate, 10 mg of regular insulin, D10 drip going at 125 cc/h. Patient could not tolerate 20 mg of albuterol nebulization in the emergency room, and since then, we opted for 0.5 mg of subcu terbutaline. Repeat potassium 7.3. Case was discussed with Dr. Thakkar who is aware of these findings. Initial EKG showed mildly peaked T waves without any QRS widening. Repeat EKG showed mild improvement in the peak T waves. Patient is producing adequate urine. He will be admitted to cardiac stepdown for close monitoring. Will defer decision for dialysis to the next team given adequate urine output. Lab Data : 04/22/21 17:41 04/22/21 22:10 Labs/Radiology: Radiology Impressions Chest X-Ray 04/22/21 15:43 IMPRESSION: No acute chest abnormality. Chest CTA 04/22/21 18:19
[2021-04-22 17:53] LABS: Basophils # 0.1 10^3/uL (0.0-0.1); Basophils % 0.5 %; Eosinophils # 0.1 10^3/uL (0.0-0.8); Eosinophils % 1.1 %; Hematocrit 38.7 % (37.0-47.0); Hemoglobin 11.9 g/dL (11.5-15.3); Lymphocytes # 2.1 10^3/uL (0.8-4.8); Lymphocytes % 19.2 %; Mean Corpuscular HGB Conc 30.7 g/dL (30.0-36.0); Mean Corpuscular Hemoglobin 28.4 pg (28.0-34.0); Mean Corpuscular Volume 92.4 fl (81-99); Mean Platelet Volume 10.3 fL (7.4-10.4); Monocytes # 0.6 10^3/uL (0.2-0.9); Monocytes % 5.4 %; Neutrophils # 8.09 10^3/uL (1.8-7.7); Neutrophils % 73.4 %; Nucleated Red Blood Cells % 0 %; Platelet Count 247 10^3/cmm (130-400); Red Blood Count 4.19 10^6/uL (4.1-5.3); Red Cell Distribution Width 13.6 % (12.1-15.1)
[2021-04-22 18:15] LABS: D Dimer 6.26 ug/mIFEU (0-0.59)
--- NOTE | 2021-04-22 18:19 | CTR_ITS ---
PROCEDURE INFORMATION: Exam: CTA Chest With Contrast Exam date and time: 04/22/2021 6:19 PM Age: 76 years old Clinical indication: Shortness of breath; Prior surgery; Surgery date: 6+ months; Surgery type: Aaa; Additional info: SOB, elevated d dimer TECHNIQUE: Imaging protocol: Computed tomographic angiography of the chest with contrast. 3D rendering (Not supervised by radiologist): MIP and/or 3D reconstructed images were created by the technologist. Radiation optimization: All CT scans at this facility use at least one of these dose optimization techniques: automated exposure control; mA and/or kV adjustment per patient size (includes targeted exams where dose is matched to clinical indication); or iterative reconstruction. Contrast material: VISI 320; Contrast volume: 66 ml; Contrast route: INTRAVENOUS (IV); COMPARISON: CT chest [facility] [id number] 09/20/2015 11:17 AM RADIATION DOSE METRICS: Total DLP (mGy-cm): 542.44 FINDINGS: Tubes, catheters and devices: Endograft in the proximal abdominal aorta with chronic peripheral thrombus or plaque. Pulmonary arteries: Normal. No pulmonary emboli. Aorta: Atherosclerotic plaque in the thoracic aorta. No aneurysm or dissection. Other arteries: Dense renal artery calcifications. 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 Patent stent in the superior mesenteric artery. Lungs: Multiple calcified granulomas in both lungs. Centrilobular emphysema. Mild atelectasis in the lingula. The lungs are otherwise clear. Pleural spaces: Unremarkable. No pneumothorax. No pleural effusion. Heart: Coronary artery calcifications. The heart size is normal. Lymph nodes: Calcified mediastinal and hilar lymph nodes. Liver: Calcified granulomas in the liver. Spleen: Calcified granulomas in the spleen. Kidneys and ureters: Fluid density cyst in the right kidney, Hounsfield units less than 20. Atrophic left kidney. No hydronephrosis. Bones/joints: Degenerative changes of the spine. No fracture identified. Soft tissues: Unremarkable. CT/CT angio chest PE protcl [id number] IMPRESSION: 1. No evidence for pulmonary embolus. 2. Old granulomatous disease. 3. Atrophic left kidney. COMMENTS: Consistent with the [employer]'s Incidental Findings Committee white paper (J Am David Radiol 2018): Any incidental renal lesion less than 1 cm or classified as too small to characterize, or any incidental cystic renal lesion characterized as simple-appearing, is likely benign. No follow-up imaging is recommended for these lesions per consensus recommendations based on imaging criteria.
[2021-04-22 18:30] LABS: Troponin(5th) Baseline 54 ng/L (0-10)
[2021-04-22] MEDS: iodixanol 320 mg/mL 100mL Btl IV (18:42)
[2021-04-22 18:52] LABS: Alanine Aminotransferase 12 U/L (0-33); Albumin Level 4.6 g/dL (3.5-5.2); Alkaline Phosphatase 78 IU/L (35-105); Blood Urea Nitrogen 68 mg/dL (8-23); Calcium 9.5 mg/dL (8.5-10.5); Carbon Dioxide 20 mmol/L (22-29); Chloride 106 mmol/L (98-107); Globulin 1.9 g/dL (1.3-4.6); Glucose 89 mg/dL (65-115); NT Pro B Type Natriuretic Pept 979 pg/mL (0-450); Osmolality Calculated 295 mOsm/kg (285-295); Sodium 133 mmol/L (136-145); Total Bilirubin 0.2 mg/dL (0.15-1.2); Total Protein 6.5 g/dL (6.6-8.7)
[2021-04-22 19:01] LABS: Anion Gap 14.8 (5-19); Aspartate Amino Transferase 19 U/L (0-32)
[2021-04-22 19:02] LABS: Potassium 7.8 mmol/L (3.5-5.1)
[2021-04-22] MEDS: ipratropium-albuterol 3 mL Neb INHALATION (19:32)
[2021-04-22] MEDS: calcium gluconate 0.9% NaCL 1 GM/50 ML PREMIX IV ×2 (19:52→20:30)
[2021-04-22 19:57] LABS: Blood Urea Nitrogen 70 mg/dL (8-23); Calcium 9.5 mg/dL (8.5-10.5); Carbon Dioxide 18 mmol/L (22-29); Chloride 106 mmol/L (98-107); Glucose 84 mg/dL (65-115); Magnesium 2.4 mg/dL (1.7-2.3); Osmolality Calculated 298 mOsm/kg (285-295); Sodium 134 mmol/L (136-145)
[2021-04-22 20:01] LABS: Anion Gap 17.8 (5-19); Potassium 7.8 mmol/L (3.5-5.1)
[2021-04-22] MEDS: FUROsemide 10 mg/mL SDV 10mL 80 MG IVP (20:04)
[2021-04-22] MEDS: terbutaline 1 mg/mL INJ 0.25 MG SUBCUT ×2 (20:28→22:47)
[2021-04-22 20:33] LABS: SARS Covid-2 Antigen Negative (Negative)
[2021-04-22 20:51] LABS: Troponin 5 2HR 46.26 ng/L (0-10)
[2021-04-22 20:52] LABS: Troponin 5 2HR Delta -7.74 ABS# (0-10)
[2021-04-22 21:04] LABS: ABG PCO2 53.8 mmHg (35-45); Alveolar-Arterial Oxygen Gradi 11.7 mmHg (5-10); Arterial Blood Gas Hematocrit 38.5 % (37-47); Base Excess ABG -7.5 mmol/L (-2.0-2.0); Blood Gas Allen Test Pos; Blood Gas Operator Identificat WALCI; Blood Gas Sample Site Brachial, right; Blood Gas Sample Type Arterial; Carboxyhemoglobin 1.5 %THgb (0.4-20.1); HCO3 ABG 20.9 mmol/L (22-26); HGB O2 Sat 90.6 % (95-100); Ionized Calcium Level - ABG 1.5 mmol/L (1.1-1.4); Methemoglobin 1.2 % (0.4-1.5); Oxygen Device NC; Oxygen Saturation ABG 93.2; PO2 ABG 72.2 mmHg (80.0-100.0); Potassium Level - ABG 7.2 mmol/L (3.5-5.0); Total Hemoglobin 12.5 g/dL (12-16)
[2021-04-22 21:08] LABS: Anion Gap 15.1 (5-19); Blood Urea Nitrogen 71 mg/dL (8-23); Calcium 9.3 mg/dL (8.5-10.5); Carbon Dioxide 18 mmol/L (22-29); Chloride 104 mmol/L (98-107); Glucose 95 mg/dL (65-115); Osmolality Calculated 291 mOsm/kg (285-295); Sodium 130 mmol/L (136-145)
[2021-04-22] MEDS: sodium polystyrene sulfonate 15 gm/60 mL Btl PO (21:12)
[2021-04-22] MEDS: dextrose 50% syringe 50 mL IVP (21:13)
[2021-04-22] MEDS: insulin regular-human 100 units/1 mL 10 UNIT IVP (21:13)
[2021-04-22 21:15] LABS: Potassium 7.1 mmol/L (3.5-5.1)
[2021-04-22] MEDS: dextrose 10% 1,000 ML 125 ML IV (21:31)
[2021-04-22 21:37] LABS: Potassium 7.3 mmol/L (3.5-5.1)
--- NOTE | 2021-04-22 21:43 | ECG_ITS ---
[facility] Test Date: 2021-04-22 Pat Name: Bridgette Malik Department: Room: Gender: Female Chief Risk Officer: : 1945 Requested By: Luiz Cardona Order Number: [id number] Grace MD: Loree Salazar M.D. Measurements Intervals [place] Rate: 107 P: 73 NE: 177 QRS: 52 QRSD: 106 T: 79 QT: 301 QTc: 403 Interpretive Statements SINUS TACHYCARDIA POSSIBLE ANTERIOR MYOCARDIAL INFARCTION , OF INDETERMINATE AGE [30 ms Q WAVE IN V3/V4, OR R < 0.2 mV IN V4] Compared to ECG 04/22/2021 18:00:44 Sinus rhythm no longer present Myocardial infarct finding still present Electronically Signed On 04-23-2021 19:50:51 GEOLOGY INSTRUCTOR by Loree Salazar M.D. [id number]
[2021-04-22 22:15] LABS: Glucose Point of Care 195 mg/dL (70-110)
[2021-04-22 22:42] LABS: Potassium 6.4 mmol/L (3.5-5.1)
--- NOTE | 2021-04-22 23:24 | PM.HP ---
Providers/Chief Complaint Admitting Physician: Kobi Thakkar MD Primary Care Provider: Jhoana Gross DO Chief Complaint: SOB History of Present Illness Same Lizzette Malik is a 76 year old female with a past medical history of abdominal aortic aneurysm status post repair suffering complications of left renal saccular, left above-knee amputation, CHF, history of ischemic cardiomyopathy, peripheral arterial disease who presents [facility] due to diarrhea, fatigue, malaise, shortness of breath, some persistent sinus symptoms. She was seen by her primary care provider on the , was placed on antibiotics, for sinus symptoms, however she continued to complain of shortness of breath, productive cough, weakness, feeling tremulous, she also reports using oxygen during the day, she uses CPAP at home, usually uses oxygen at night, but now is using it during the day. Here in the emergency room she was found to have 3 L nasal cannula, CT angiogram negative for pulmonary emboli, no focal infiltrates, BNP elevated at 979, was found to be hyperkalemic potassium 7.8, creatinine 2.1. Was given insulin, D50, repeat event insulin, D10, calcium gluconate, albuterol. No chest pain complaints, no significant EKG changes, most recent potassium 6.4 Review of Systems Const: Reports: fever(s), chills, body aches, fatigue and malaise Eyes: Denies: change in vision or blurry vision ENMT: Reports: nasal congestion; Denies: throat pain Card: Reports: dyspnea on exertion; Denies: chest pain, palpitations, irregular heart rhythm, edema or lightheadedness Resp: Reports: dyspnea and productive cough; Denies: non-productive cough or wheezing GI: Reports: diarrhea; Denies: abdominal pain, nausea, vomiting, hematemesis, constipation, hematochezia or melena : Denies: flank pain, dysuria or urinary frequency Musc: Denies: neck pain or back pain Skin/Breast: Denies: rash Neuro: Denies: headache(s), dizziness or vertigo Endo: Denies: polyuria or polydipsia Medications/Allergies Home Medications Medication Instructions Recorded Confirmed Last Taken Type NEBULIZER TUBING #1 ea 07/07/19 04/14/21 Unknown Rx fluticasone propionate 50 2 spray INTRANASAL DAILY #16 gm 04/22/20 04/14/21 Unknown Rx mcg/actuation nasal spray,suspension (Flonase Allergy Relief) clopidogrel 75 mg tablet (Plavix) 75 mg PO QDAY #90 tab 06/13/20 04/14/21 Unknown Rx nitroglycerin 2.5 mg 2.5 mg PO BID #180 cap 08/27/20 04/14/21 Unknown Rx capsule,extended release isosorbide mononitrate 30 mg 30 mg PO QDAY #90 tab 09/12/20 04/14/21 Unknown Rx tablet,extended release 24 hr albuterol sulfate 2.5 mg (3 mL) INHALATION QID PRN 12/02/20 04/14/21 Unknown Rx #180 ml buspirone 5 mg tablet 5 mg PO TID PRN 90 Days #270 tab 01/02/21 04/14/21 Unknown Rx albuterol sulfate 90 mcg/actuation 2 puff INHALATION Q6H PRN #18 gm 04/14/21 04/14/21 Unknown Rx aerosol inhaler (ProAir HFA) fluconazole 150 mg tablet 150 mg PO Q3D #2 tab 04/14/21 04/14/21 Unknown Rx (Diflucan) hydrochlorothiazide 25 mg tablet See Rx Instructions .ROUTE 04/14/21 04/14/21 Unknown Rx .COMPLEX #90 tab lisinopril 10 mg tablet See Rx Instructions .ROUTE 04/14/21 04/14/21 Unknown Rx .COMPLEX #90 tab metoprolol tartrate 25 mg tablet 25 mg PO BID #180 tab 04/14/21 04/14/21 Unknown Rx sulfamethoxazole 800 1 tab PO BID #20 tab 04/14/21 04/14/21 Unknown Rx mg-trimethoprim 160 mg tablet (Bactrim DS) umeclidinium 62.5 mcg/actuation 1 inh INHALATION DAILY #30 each 04/14/21 04/14/21 Unknown Rx blister powder for inhalation (Incruse Ellipta) atorvastatin 40 mg tablet 40 mg PO .once daily 90 Days #90 04/15/21 Unknown Rx tab montelukast 10 mg tablet See Rx Instructions .ROUTE 04/22/21 Unknown Rx .COMPLEX #90 tab Allergies Allergy/AdvReac Type Severity Reaction Status Date / Time No Known Allergies Allergy Verified 04/14/21 08:35 PFSH Acute PFSH: Medical History (Updated 04/22/21 @ 23:37 by Kobi Thakkar MD) 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 coli infection GERD (gastroesophageal reflux disease) History of stent insertion of renal artery X 3 LEFT KIDNEY HTN (hypertension) Ischemic cardiomyopathy Mitral regurgitation Neuropathic pain of left lower extremity Non-functioning kidney Non-healing wound of amputation stump Old VA (myocardial infarction) PAD (peripheral artery disease) Single kidney Skin lesion Skin wound from surgical incision Sleep apnea Vasculopathy Surgical History H/O breast surgery H/O cataract extraction H/O facial fracture repair History of AAA (abdominal aortic aneurysm) repair 06/2015 History of hysterectomy Presence of stent in coronary artery S/P amputation Family History Father CAD (coronary artery disease) Social History Smoking and tobacco status: current every day smoker cigarettes Packs smoked per day: 0.5 (PPD) Quit status (tobacco): not considering quitting Second hand smoke exposure: Yes Alcohol intake: current Alcohol intake frequency: holidays/special occasions only Desire information about alcohol rehabilitation?: No Desire information about substance/drug rehabilitation?: No Vitals/I&O/Wt Last Vital Signs Temp 98.6 F 04/22/21 15:27 Pulse 98 04/22/21 23:03 Resp 19 H 04/22/21 23:03 BP 146/66 04/22/21 23:03 Pulse Ox 93 04/22/21 23:03 04/22/21 04/22/21 04/23/21 14:59 22:59 06:59 Intake Total 50 / 50 Balance 50 / 50 Weight last 48 hrs Weight 67.132 kg Physical Exam Const: COMMON NORMALS: no acute distress and patient oriented x3 HENMT: COMMON NORMALS: normocephalic HEAD & SCALP: normocephalic Eye: COMMON NORMALS: Equal, round and reactive pupils present and EOMs intact bilaterally Neck/C-Spine: COMMON NORMALS: no JVD Resp: COMMON NORMALS: normal respiratory effort, No retractions, No use of accessory muscles and clear to auscultation bilaterally AUSCULTATION: clear to auscultation bilaterally Cardio: COMMON NORMALS: no JVD, regular rate, regular rhythm, S1 normal heart sound present and S2 normal heart sound present RATE: regular rate RHYTHM: regular rhythm HEART SOUNDS: S1 normal heart sound present and S2 normal heart sound present GI: COMMON NORMALS: Normal to inspection, nondistended, normoactive bowel sounds present, Soft to palpation, non-tender, No hepatosplenomegaly present, no masses and no bruits PALPATION: Yes Soft to palpation and Yes No hepatosplenomegaly present Extremity: COMMON NORMALS: capillary refill normal, no clubbing, cyanosis or edema, no calf tenderness and no pedal edema NARRATIVE EXTREMITY EXAM: Left knee above-knee amputation Neuro: COMMON NORMALS: patient oriented x3 Psych: COMMON NORMALS: mental status grossly normal Data : 04/22/21 17:41 04/22/21 22:10 A&P Assessment and plan (1) COPD exacerbation: Status: Acute (2) Hyperkalemia: Status: Acute (3) KAYLI (acute kidney injury): Status: Acute (4) CHF (congestive heart failure): Status: Acute (5) NSTEMI (non-ST elevated myocardial infarction): Status: Acute (6) History of stent insertion of renal artery: Status: Acute (7) Ischemic cardiomyopathy: Status: Acute (8) Mitral regurgitation: Status: Acute Qualifiers: Cardiac valve disease etiology: nonrheumatic Qualified Code(s): I34.0 - Nonrheumatic mitral (valve) insufficiency (9) History of AAA (abdominal aortic aneurysm) repair: Status: Acute (10) PAD (peripheral artery disease): Status: Acute (11) ASHD (arteriosclerotic heart disease): Status: Acute (12) Acute on chronic combined systolic (congestive) and diastolic (congestive) heart failure: Status: Acute (13) Above knee amputation of left lower extremity: Status: Chronic (14) COPD (chronic obstructive pulmonary disease): Status: Chronic Qualifiers: COPD type: emphysema Emphysema type: panlobular Qualified Code(s): J43.1 - Panlobular emphysema (15) HTN (hypertension): Status: Chronic Qualifiers: Hypertension type: essential hypertension Qualified Code(s): I10 - Essential (primary) hypertension (16) Dyslipidemia: Status: Chronic Plan COPD exacerbation -Requiring 3 L nasal cannula -Continue oxygen therapy -DuoNeb treatment -Budesonide -Solu-Medrol 40 every 8 hours -Doxycycline -Sputum cultures, blood cultures, Covid PCR, influenza CHF -History of ischemic cardiomyopathy -Elevated BNP -Does not look clinically fluid overloaded -Has been given Lasix therapy -Hold off on further Lasix therapy Hypercarbia, uses CPAP -Continue CPAP Mixed respiratory and metabolic acidosis, continue CPAP, has received bicarb Hyperkalemia, continue Kayexalate, monitor serum potassium, has received 20 units of insulin, for now continue D10, plan on discontinuing in the next 4 to 6 hours based on blood sugars, blood sugars every hour, check A1c, continue DuoNeb NSTEMI -Has history of ischemic cardiomyopathy -Continue Plavix, statin, metoprolol, Imdur -We will do cardiac echo Acute renal failure -History of left renal sacrifice, after abdominal aortic aneurysm repair -Creatinine 2.1 -Monitor urine output, Place Callahan catheter, renal ultrasound History of abdominal aortic aneurysm repair Hypertension Hyperlipidemia Attestations Medical Necessity Statement*: Patient requires hospitalization, outpatient with observation, for hyperkalemia, COPD exacerbation, NSTEMI Coding Level of Care Code Acute Materials Scientist for [facility] Fwd Diagnoses COPD exacerbation J44.1 Hyperkalemia E87.5 KAYLI (acute kidney injury) N17.9 CHF (congestive heart failure) I50.9 NSTEMI (non-ST elevated myocardial infarction) I21.4 History of stent insertion of renal artery Z98.890 Ischemic cardiomyopathy I25.5 Mitral regurgitation I34.0 Cardiac valve disease etiology: nonrheumatic History of AAA (abdominal aortic aneurysm) repair Z98.890 PAD (peripheral artery disease) I73.9 ASHD (arteriosclerotic heart disease) I25.10 Acute on chronic combined systolic (congestive) and diastolic (congestive) heart failure I50.43 Above knee amputation of left lower extremity S78.112A COPD (chronic obstructive pulmonary disease) J43.1 COPD type: emphysema Emphysema type: panlobular HTN (hypertension) I10 Hypertension type: essential hypertension Dyslipidemia E78.5
[2021-04-22 23:26] LABS: Glucose Point of Care 357 mg/dL (70-110)
--- NOTE | 2021-04-22 23:30 | PC.NURSE ---
Transfer Note Patient transferred to CSU room 108 from ER via bed. Handoff received from ERICKA Menjivar. Patient oriented to environment and equipment. Covering service notified. Orders reviewed and will continue to monitor. Family and/or patient admitting representative notified. Patient belongings at bedside including wheelchair.
[2021-04-23] VITALS (194 sets, daily range): BP systolic 114–147; BP diastolic 52–92; PULSE 75–190; RESP 14–31; TEMP 35.8–36.9; O2SAT 81–98
[2021-04-23] MEDS: ipratropium-albuterol 3 mL Neb INHALATION ×5 (00:04→20:22)
[2021-04-23] MEDS: budesonide 0.5 mg/2 mL Neb INHALATION ×3 (00:04→20:22)
[2021-04-23 00:10] LABS: Troponin 5 6HR 50.11 ng/L (0-10)
[2021-04-23 00:14] LABS: Troponin 5 6HR Delta -3.89 ng/L (0-12)
[2021-04-23] MEDS: pantoprazole 40 mg SDV IVP (00:24)
[2021-04-23] MEDS: heparin 5,000 unit/mL INJ 1 mL 5000 UNIT SUBCUT ×2 (00:24→11:57)
[2021-04-23] MEDS: sodium polystyrene sulfonate 15 gm/60 mL Btl PO ×4 (00:24→16:35)
[2021-04-23] MEDS: acetaminophen 325 mg Tablet 650 MG PO (01:34)
[2021-04-23] MEDS: doxycycline 100 MG in sodium chloride 0.9% (plus) 100 ML IV ×2 (01:34→14:08)
[2021-04-23 01:39] LABS: Amphetamines Screen Urine Negative (Negative); Barbiturates Screen Urine Negative (Negative); Benzodiazepines Screen Urine Negative (Negative); Cocaine Screen Urine Negative (Negative); Opiate Screen Urine Negative (Negative); PCP Screen Urine Negative (Negative); THC Screen Urine Negative (Negative)
[2021-04-23 01:46] LABS: Urea Nitrogen,Urine Random 198 mg/dL
[2021-04-23 01:54] LABS: Potassium, Radom Urine 18 mmol/L; Urine Creatinine 22 mg/dL (28-217); Urine Random Chloride 123 mmol/L; Urine Random Sodium 111 mmol/L
[2021-04-23 01:59] LABS: Glucose Point of Care 310 mg/dL (70-110)
[2021-04-23] MEDS: insulin regular-human 10 UNIT in SYRINGE 1 EACH IVP (02:24)
[2021-04-23 02:28] LABS: Eosinophil Urine No Eosinophils Seen; Urine Eosinophil Count 0 (0-0)
[2021-04-23 02:34] LABS: Glucose Point of Care 293 mg/dL (70-110)
[2021-04-23 03:11] LABS: Adenovirus Not Detected (NOT DETECT); Chlamydia Pneumoniae Not Detected (NOT DETECT); Coronavirus 229E,HKU1,NL63,OC4 Not Detected (NOT DETECT); Human Metapneumovirus Not Detected (NOT DETECT); Human Rhinovirus/Enterovirus Not Detected (NOT DETECT); Influenza A Not Detected (NOT DETECT); Influenza A H1 Not Detected (NOT DETECT); Influenza A H1-2009 Not Detected (NOT DETECT); Influenza A H3 Not Detected (NOT DETECT); Influenza B Not Detected (NOT DETECT); Mycoplasma Pneumoniae Not Detected (NOT DETECT); Parainfluenza Virus Type 1 Not Detected (NOT DETECT); Parainfluenza Virus Type 2 Not Detected (NOT DETECT); Parainfluenza Virus Type 3 Not Detected (NOT DETECT); Parainfluenza Virus Type 4 Not Detected (NOT DETECT); Respiratory Syncytial Virus A Not Detected (NOT DETECT); Respiratory Syncytial Virus B Not Detected (NOT DETECT); SARS-COV-2 Not Detected (NOT DETECT)
[2021-04-23 03:25] LABS: Glucose Point of Care 283 mg/dL (70-110)
[2021-04-23 03:49] LABS: Basophils % 0.1 %; Hematocrit 39.3 % (37.0-47.0); Hemoglobin 11.8 g/dL (11.5-15.3); Lymphocytes # 0.2 10^3/uL (0.8-4.8); Lymphocytes % 3.2 %; Mean Corpuscular Hemoglobin 28.7 pg (28.0-34.0); Mean Corpuscular Volume 95.6 fl (81-99); Mean Platelet Volume 10.4 fL (7.4-10.4); Monocytes % 0.4 %; Neutrophils # 7.11 10^3/uL (1.8-7.7); Neutrophils % 95.8 %; Nucleated Red Blood Cells % 0 %; Platelet Count 231 10^3/cmm (130-400); Red Blood Count 4.11 10^6/uL (4.1-5.3); Red Cell Distribution Width 13.7 % (12.1-15.1); White Blood Count 7.4 10^3/uL (4.0-10.0)
[2021-04-23 04:02] LABS: INR 1.12 (0.8-1.2)
[2021-04-23 04:10] LABS: Alanine Aminotransferase 12 U/L (0-33); Albumin Level 4.4 g/dL (3.5-5.2); Alkaline Phosphatase 79 IU/L (35-105); Anion Gap 19.7 (5-19); Aspartate Amino Transferase 17 U/L (0-32); Blood Urea Nitrogen 68 mg/dL (8-23); Calcium 9.9 mg/dL (8.5-10.5); Carbon Dioxide 17 mmol/L (22-29); Chloride 99 mmol/L (98-107); Globulin 2.5 g/dL (1.3-4.6); Glucose 269 mg/dL (65-115); Osmolality Calculated 299 mOsm/kg (285-295); Potassium 5.7 mmol/L (3.5-5.1); Sodium 130 mmol/L (136-145); Total Bilirubin 0.3 mg/dL (0.15-1.2); Total Protein 6.9 g/dL (6.6-8.7)
[2021-04-23 04:19] LABS: Phosphorus 3.3 mg/dL (2.5-4.5); Thyroid Stimulating Hormone 1.28 uIU/mL (0.27-4.20)
[2021-04-23 04:28] LABS: NT Pro B Type Natriuretic Pept 1384 pg/mL (0-450); Procalcitonin 0.14 ng/mL (0-0.5)
[2021-04-23] MEDS: dextrose 10% 1,000 ML 125 ML IV (04:56)
[2021-04-23 06:00] LABS: Glucose Point of Care 285 mg/dL (70-110)
[2021-04-23 06:04] LABS: Results from Genmark
[2021-04-23 06:47] LABS: Glucose Point of Care 296 mg/dL (70-110)
--- NOTE | 2021-04-23 06:51 | PC.NURSE ---
Stop Fluids Received orders to stop D10 and continue Q1HR accu-checks for two more hours ending at 0800.
--- NOTE | 2021-04-23 09:00 | PC.NURSE ---
ultrasound at bedside
[2021-04-23] MEDS: metoprolol tartrate 25 mg Tablet PO ×2 (09:29→20:40)
[2021-04-23] MEDS: clopidogrel 75 mg Tablet PO (09:29)
[2021-04-23] MEDS: isosorbide mononitrate ER 30 mg Tablet PO (09:29)
--- NOTE | 2021-04-23 09:53 | PC.CHAP ---
Pastoral Care Encounter/Spiritual Assessment Type of Contact [] Declined septic tank setter visit [] Patient/Family/Request visit [] Outpatient visit [] Follow-up visit [] Physician referral [] Code/Alert [x] Routine visit [] Staff referral [] Actively dying [] Patient sleeping [] Family support [] [] Out of room [] Palliative care [] [] Receiving care in room [] Pre-surgical visit [] Trauma [] Long length of stay [] ICU visit [] Other: Relational/Emotional Strength [] Patient feels connected with others/family/visitors/staff [] Distress [] Loneliness/isolation [] Abandonment Spirituality of Patient [] Person of Jannie [] Attends Synagogue of their Jannie [] Believes in Prayer [] Reads Bible or Mormon materials [] There are Spiritual issues to be addressed Lubricating Specialist Interventions [x] Prayer [] Active listening [] Non-anxious presence [] Spiritual/emotional support [] Crisis/trauma care [] Spiritual counseling [] Bereavement support [] Provided bereavement packet [] Provided Bible/devotional materials [] Provided toy/stuffed animal, coloring book to patient or family member [] Provided Communion [] Anointing/Dent [] Salvation [x] Completed spiritual assessment [] Other: Impact on Illness or Injury [] Angry [] Fearful [] Anxious [] Often cries [] Exhaustion [] Unable to work [] Unable to attend restorationism [] Unable to walk/stand [] Unable to read [] Unable to drive [] Unable to eat/drink [] Unable to sleep [] Unable to be with family [] Patient intubated [] Other: Summary Time spent with patient
--- NOTE | 2021-04-23 10:10 | P.PN_ITS ---
Subjective Subjective: This morning patient thinks she is back to her baseline, daughter at the bedside She is noted nursing overnight events, she did not like the CPAP that we use overnight however she should be on BiPAP, updated RN, I am getting twelve-lead EKG, she does have new onset A. fib RVR requiring 3 L of oxygen in the daytime however she uses trilogy of oxygen at night with her CPAP For hypercapnia would recommend BiPAP for now Vitals/I&O/Wt Last Vital Signs Temp 96.5 F L 04/23/21 04:00 Pulse 92 04/23/21 09:41 Resp 18 04/23/21 09:32 BP 114/52 04/23/21 07:30 Pulse Ox 94 04/23/21 09:32 04/22/21 04/23/21 04/23/21 22:59 06:59 14:59 Intake Total 100 / 100 1127.093 / 1227.093 277.083 / 277.083 Output Total 500 / 500 Balance 100 / 100 627.093 / 727.093 277.083 / 277.083 Weight last 48 hrs Weight 67.132 kg Physical Exam Narrative: Daughter at the bedside Patient is feeling back to her baseline Nonfocal neuro exam Left AKA No signs of edema Awake and alert Nonfocal neuro exam GCS 15 Abdomen distended visceral obesity Currently requiring treatment cannula Crackles noted on lung auscultation Variable S1-S2 Urinary Catheter Management: Callahan: Cath Placed During This Visit: yes Reason for Continuing Indwelling Catheter: Accurate Measurement of Urinary Output in Critically Ill Patients Urinary Catheter Date of Insertion: 04/23/21 Urinary Catheter Time of Insertion: 01:04 Data : 04/23/21 02:50 04/23/21 02:50 A&P Assessment and plan (1) NSTEMI (non-ST elevated myocardial infarction): Status: Acute (2) CHF (congestive heart failure): Status: Acute (3) KAYLI (acute kidney injury): Status: Acute (4) Hyperkalemia: Status: Acute (5) COPD exacerbation: Status: Acute (6) Panic attacks: Status: Acute (7) Sleep apnea: Status: Acute (8) PAD (peripheral artery disease): Status: Acute (9) History of stent insertion of renal artery: Status: Acute (10) CKD (chronic kidney disease): Status: Acute Plan COPD exacerbation Acute hypoxia Currently requiring 3 L of oxygen the daytime however she uses 3 L oxygen at night with CPAP Hypercapnia: Would recommend BiPAP Hypokalemia: Improved with hyperkalemia cocktail in the ER,, follow-up with EKG We will give her 1 amp of bicarb because of acidosis and hyperkalemia, Acute on chronic kidney disease creatinine 2.4, escalated diuretic regimen Hyperglycemia A1c is pending Hyperkalemia: Improved Full code Cardiac diet DVT prophylaxis: Heparin Attestations Medical Necessity Statement*: Discharge tomorrow if clinically stable Time Spent in Patient Care: 20 minutes Coding Level of Care Code Acute Catalogue Illustrator for Chg Fwd Diagnoses NSTEMI (non-ST elevated myocardial infarction) I21.4 CHF (congestive heart failure) I50.9 KAYLI (acute kidney injury) N17.9 Hyperkalemia E87.5 COPD exacerbation J44.1 Panic attacks F41.0 Sleep apnea G47.30 PAD (peripheral artery disease) I73.9 History of stent insertion of renal artery Z98.890 CKD (chronic kidney disease) N18.9
--- NOTE | 2021-04-23 11:32 | ECG_ITS ---
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 Measurements Intervals [place] Rate: 77 P: 74 [place]: 183 QRS: 17 QRSD: 92 T: 66 QT: 356 QTc: 405 Interpretive Statements SINUS RHYTHM LOW QRS VOLTAGE IN PRECORDIAL LEADS [QRS DEFLECTION < 1.0 mV IN CHEST LEADS] NONSPECIFIC ST & T-WAVE ABNORMALITY Compared to ECG 04/22/2021 21:34:42 Low QRS voltage now present T-wave abnormality now present Sinus tachycardia no longer present Myocardial infarct finding no longer present Electronically Signed On 04-24-2021 11:04:40 [employer] by Loree Salazar M.D. [email or web address]
[2021-04-23 12:00] LABS: Glucose Point of Care 174 mg/dL (70-110)
[2021-04-23 16:41] LABS: Glucose Point of Care 144 mg/dL (70-110)
[2021-04-23] MEDS: atorvastatin 40 mg Tablet PO (20:39)
[2021-04-23] MEDS: pantoprazole DR 40 mg Tablet PO (20:48)
[2021-04-23 21:27] LABS: Estmated Average Glucose 117; Hemoglobin A1C 5.7 % (4.0-6.0)
--- NOTE | 2021-04-23 23:35 | US_ITS ---
WS: [id number] ULTRASOUND RENAL TECHNIQUE: Ultrasound examination of both kidneys. CLINICAL INFORMATION: meredith COMPARISON: None. FINDINGS: RIGHT: Right kidney is normal in size and appearance. Echogenicity: Normal. Cortical thickness: 1.5 cm; Normal. Hydronephrosis: None. Perinephric fluid: None. Right kidney measures: 11.2 cm x 5.3 cm x 4.8 cm. LEFT: Left kidney is atrophic and difficult to visualize Echogenicity: Normal. Cortical thickness: 0.6 cm Hydronephrosis: None. Perinephric fluid: None. Left kidney measures: 5.4 cm x cm x cm. Normal visualized aorta. US/US renal BI* [id number] IMPRESSION: 1. No hydronephrosis in the RIGHT kidney. 2. Atrophic LEFT kidney difficult to visualize. 3. Callahan catheter in place.
--- NOTE | 2021-04-23 23:35 | USCV_ITS ---
Bridgette Malik Age: 76 Gender: F : 1945 Exam Date: 04/23/2021 07:46 Ordering Phys: Kobi Thakkar MD Technologist: MARQUES [place] [facility] [place]ication: c/o shortness of breath. Patient states no hx cardiac intervention. Hx peripheral arterial dz, s/p LEFT above-knee amputation. hx AAA repair 2016, which is a graft, not stented, at which time the LKID was lost. BP: 147 / 92 HR: 89 Rhythm: Sinus Technical Quality: Adequate MEASUREMENTS (Male / Female) Normal Values 2D ECHO LV Diastolic Diameter PLAX 4.4 cm 4.2 - 5.9 / 3.9 - 5.3 cm LV Systolic Diameter PLAX 3.1 cm IVS Diastolic Thickness 1.6 cm 0.6 - 1.0 / 0.6 - 0.9 cm IVS Systolic Thickness 2.0 cm LVPW Diastolic Thickness 1.7 cm 0.6 - 1.0 / 0.6 - 0.9 cm LVPW Systolic Thickness 2.4 cm LVOT Diameter 2.2 cm LV Ejection Fraction 2D Teich 57.7 % LV Ejection Fraction MOD 2C 68.9 % LV Ejection Fraction 2C AL 69.0 % LA Diameter 3.1 cm LA Width 2.8 cm LA Height 5.1 cm RA Width 2.4 cm RA Height 3.9 cm Aorta at Sinotubular Diameter 3.2 cm M-MODE Aortic Annulus Diameter 3.0 cm LA Ao Ratio MM 1.1 MV E Point Septal Separation 0.2 cm DOPPLER AV Peak Velocity 176.0 cm/s LVOT Peak Velocity 98.0 cm/s AV Area Cont Eq vti 2.6 cm squared AV Area Cont Eq pk 2.1 cm squared MV Area PHT 3.5 cm squared Mitral E to A Ratio 0.8 MV E' Velocity 59.5 cm/s Mitral E to MV E' Ratio 17.8 Mitral E to LV E' Lateral Ratio 16.3 Mitral E to LV E' Septal Ratio 20.0 TV Peak E Velocity 63.0 cm/s PV Peak Velocity 316.0 cm/s FINDINGS Left Ventricle Normal left ventricular cavity size. Normal left ventricular systolic function. No regional wall motion abnormalities. Left ventricular ejection fraction is estimated at 57 %. Grade I/IV diastolic dysfunction (abnormal relaxation filling pattern), normal to mildly elevated filling pressures. Right Ventricle Normal right ventricular size. RVSP could not be calculated due to incomplete tricuspid regurgitation velocity profile. Right Atrium The right atrium is normal in size. Left Atrium The left atrium is normal in size. Mitral Valve Mildly thickened mitral valve. No mitral valve stenosis. Mild mitral valve regurgitation. Aortic Valve Mild aortic valve calcification. No aortic valve stenosis. No aortic valve regurgitation. Tricuspid Valve Mild tricuspid valve regurgitation. Pulmonic Valve Moderate pulmonic stenosis, peak gradient 39mm Hg, Peak systolic velocity = 316 cm/second. Pericardium Normal pericardium without effusion. Aorta Normal ascending aorta dimension. CONCLUSIONS 1-Normal left ventricular cavity size. Normal left ventricular systolic function. No regional wall motion abnormalities. Left ventricular ejection fraction is estimated at 57 %. Grade I/IV diastolic dysfunction (abnormal relaxation filling pattern), normal to mildly elevated filling pressures. 2-Mildly thickened mitral valve. No mitral valve stenosis. Mild mitral valve regurgitation. 3-Mild aortic valve calcification. No aortic valve stenosis. No aortic valve regurgitation. 4-Moderate pulmonic stenosis, peak gradient 39mm Hg, Peak systolic velocity = 316 cm/second. 5-There is no pericardial effusion. 6-1 compared to the prior exam dated 10/03/2018, there is moderate pulmonary valve stenosis now. Colton Mason MD (Electronically Signed) Final Date: 23 April 2021 20:08 S
[2021-04-24] VITALS (21 sets, daily range): BP systolic 121–156; BP diastolic 53–76; PULSE 64–115; RESP 18–27; TEMP 36.8–36.9; O2SAT 90–98
[2021-04-24] MEDS: ipratropium-albuterol 3 mL Neb INHALATION ×6 (00:09→23:43)
[2021-04-24] MEDS: acetaminophen 325 mg Tablet 650 MG PO ×2 (00:32→20:49)
[2021-04-24] MEDS: doxycycline 100 MG in sodium chloride 0.9% (plus) 100 ML IV (00:34)
[2021-04-24] MEDS: heparin 5,000 unit/mL INJ 1 mL 5000 UNIT SUBCUT ×3 (00:43→23:16)
[2021-04-24 03:06] LABS: Hematocrit 35.7 % (37.0-47.0); Hemoglobin 11.1 g/dL (11.5-15.3); Lymphocytes # 0.6 10^3/uL (0.8-4.8); Lymphocytes % 6.7 %; Mean Corpuscular HGB Conc 31.1 g/dL (30.0-36.0); Mean Corpuscular Hemoglobin 28.5 pg (28.0-34.0); Mean Corpuscular Volume 91.8 fl (81-99); Mean Platelet Volume 10.2 fL (7.4-10.4); Monocytes # 0.4 10^3/uL (0.2-0.9); Monocytes % 5.2 %; Neutrophils # 7.37 10^3/uL (1.8-7.7); Neutrophils % 87.6 %; Nucleated Red Blood Cells % 0 %; Platelet Count 209 10^3/cmm (130-400); Red Blood Count 3.89 10^6/uL (4.1-5.3); Red Cell Distribution Width 13.6 % (12.1-15.1); White Blood Count 8.4 10^3/uL (4.0-10.0)
[2021-04-24 03:22] LABS: INR 1.05 (0.8-1.2)
[2021-04-24 03:34] LABS: Anion Gap 18.5 (5-19); Blood Urea Nitrogen 71 mg/dL (8-23); Calcium 9.5 mg/dL (8.5-10.5); Carbon Dioxide 20 mmol/L (22-29); Chloride 103 mmol/L (98-107); Glucose 144 mg/dL (65-115); Osmolality Calculated 307 mOsm/kg (285-295); Phosphorus 5.4 mg/dL (2.5-4.5); Potassium 4.5 mmol/L (3.5-5.1); Sodium 137 mmol/L (136-145)
--- NOTE | 2021-04-24 05:45 | PC.NURSE ---
Shift Note Frequent safety and comfort rounds continue. Orders and/or nursing care completed as indicated. Patient monitored for response to intervention and treatment(s). Education provided includes antibiotics. Patient and/or technical sales representative verbalizes understanding. Will continue to monitor.
--- NOTE | 2021-04-24 05:48 | PC.NURSE ---
Addendum entered by Shilpa Vital RN 04/24/21 05:50: Patients K this am is 4.5 wnl without the kayexelate. Will notify oncoming nurse. Original Note: Patient refused kayelate at bedtime and at this morning shift. States she it is making her nauseous and she will take it later. Will continue to monitor.
[2021-04-24 06:22] LABS: Glucose Point of Care 127 mg/dL (70-110)
[2021-04-24] MEDS: isosorbide mononitrate ER 30 mg Tablet PO (08:13)
[2021-04-24] MEDS: metoprolol tartrate 25 mg Tablet PO ×2 (08:13→20:50)
[2021-04-24] MEDS: clopidogrel 75 mg Tablet PO (08:13)
[2021-04-24] MEDS: budesonide 0.5 mg/2 mL Neb INHALATION ×2 (08:22→19:44)
--- NOTE | 2021-04-24 08:57 | P.DS_ITS ---
Discharge Providers Date of Admission: 04/23/21 17:04 Date of Discharge: April 24, 2021 Attending Provider at Admission: Kobi Thakkar MD Attending Provider at Discharge: Colton Wall MD Primary Care Provider: Jhoana Gross DO Diagnoses at Discharge Discharge Diagnosis (1) NSTEMI (non-ST elevated myocardial infarction): Status: Acute (2) CHF (congestive heart failure): Status: Acute (3) KAYLI (acute kidney injury): Status: Acute (4) Hyperkalemia: Status: Acute (5) COPD exacerbation: Status: Acute (6) Panic attacks: Status: Acute (7) Sleep apnea: Status: Acute (8) PAD (peripheral artery disease): Status: Acute (9) History of stent insertion of renal artery: Status: Acute Permanent problem details: X 3 LEFT KIDNEY (10) CKD (chronic kidney disease): Status: Acute Reason for Visit Reason for Visit: SOB Physical Exam Urinary Catheter Management: Callahan: Cath Placed During This Visit: yes Reason for Continuing Indwelling Catheter: Acute Urinary Retention or Obstruction Urinary Catheter Date of Insertion: 04/23/21 Urinary Catheter Time of Insertion: 01:04 Discharge Data Studies Completed and Pending Completed Studies During Hospitalization Category Date Time Status CTA chest [CT angio chest PE protcl [id number]] Urgent Cat Scan 04/22/21 18:19 Completed XR chest 1V portable [id number] Stat Exams 04/22/21 15:43 Completed CV. echo complete* [id number] Routine Ultrasound 04/23/21 23:35 Completed US renal BI* [id number] Routine Ultrasound 04/23/21 23:35 Completed Pending at discharge Category Date Time Status Clostridioides Difficile PCR Routine Lab 04/22/21 23:16 Ordered Enteric Bacterial Panel by PCR Routine Lab 04/22/21 23:16 Ordered Enteric Parasite Panel by PCR Routine Lab 04/22/21 23:16 Ordered Immunochemical Fecal OCB Routine Lab 04/22/21 23:16 Ordered Lactoferrin Routine Lab 04/22/21 23:16 Ordered Magnesium AM LABS Lab 04/25/21 04:00 Ordered Osmolality Urine Stat Lab 04/23/21 01:04 Received Phosphorus AM LABS Lab 04/25/21 04:00 Ordered Prothrombin Time INR AM LABS Lab 04/25/21 04:00 Ordered Sputum Culture and Gram Stain Stat Lab 04/23/21 04:57 Results Urine Culture Stat Lab 04/23/21 01:04 Received Radiology Impressions Chest X-Ray 04/22/21 15:43 IMPRESSION: No acute chest abnormality. Chest CTA 04/22/21 18:19 IMPRESSION: 1. No evidence for pulmonary embolus. 2. Old granulomatous disease. 3. Atrophic left kidney. COMMENTS: Consistent with the [employer]'s Incidental Findings Committee white paper (J Am David Radiol 2018): Any incidental renal lesion less than 1 cm or classified as too small to characterize, or any incidental cystic renal lesion characterized as simple-appearing, is likely benign. No follow-up imaging is recommended for these lesions per consensus recommendations based on imaging criteria. Renal Ultrasound 04/23/21 23:35 IMPRESSION: 1. No hydronephrosis in the RIGHT kidney. 2. Atrophic LEFT kidney difficult to visualize. 3. Callahan catheter in place. Laboratory Results WBC 8.4 10^3/uL (4.0-10.0) 04/24/21 02:53 RBC 3.89 10^6/uL (4.1-5.3) L 04/24/21 02:53 Hgb 11.1 g/dL (11.5-15.3) L 04/24/21 02:53 Hct 35.7 % (37.0-47.0) L 04/24/21 02:53 MCV 91.8 fl (81-99) 04/24/21 02:53 MCH 28.5 pg (28.0-34.0) 04/24/21 02:53 MCHC 31.1 g/dL (30.0-36.0) 04/24/21 02:53 RDW 13.6 % (12.1-15.1) 04/24/21 02:53 Plt Count 209 10^3/cmm (130-400) 04/24/21 02:53 MPV 10.2 fL (7.4-10.4) 04/24/21 02:53 Neut % (Auto) 87.6 % 04/24/21 02:53 Lymph % (Auto) 6.7 % 04/24/21 02:53 [place] % (Auto) 5.2 % 04/24/21 02:53 Eos % (Auto) 0.0 % 04/24/21 02:53 Baso % (Auto) 0.0 % 04/24/21 02:53 Neut # (Auto) 7.37 10^3/uL (1.8-7.7) 04/24/21 02:53 Lymph # (Auto) 0.6 10^3/uL (0.8-4.8) L 04/24/21 02:53 [place] # (Auto) 0.4 10^3/uL (0.2-0.9) 04/24/21 02:53 Eos # (Auto) 0.0 10^3/uL (0.0-0.8) 04/24/21 02:53 Baso # (Auto) 0.0 10^3/uL (0.0-0.1) 04/24/21 02:53 Nucleated RBC % (auto) 0 % 04/24/21 02:53 Nucleated RBCs # 0.0 /100WBC 04/24/21 02:53 PT 14.00 SECONDS (12.1-14.9) 04/24/21 02:53 INR 1.05 (0.8-1.2) 04/24/21 02:53 D-Dimer 6.26 ug/mIFEU (0-0.59) H 04/22/21 17:41 Specimen Type Arterial 04/22/21 20:53 Sample Site Brachial, right 04/22/21 20:53 ABG pH 7.20 (7.35-7.45) L 04/22/21 20:53 ABG pCO2 53.8 mmHg (35-45) H 04/22/21 20:53 ABG pO2 72.2 mmHg (80.0-100.0) L 04/22/21 20:53 ABG HCO3 20.9 mmol/L (22-26) L 04/22/21 20:53 ABG O2 Saturation 93.2 04/22/21 20:53 ABG Base Excess -7.5 mmol/L (-2.0-2.0) L 04/22/21 20:53 Jean Test Pos 04/22/21 20:53 A-a O2 Gradient 11.7 mmHg (5-10) H 04/22/21 20:53 Hematocrit 38.5 % (37-47) 04/22/21 20:53 Hgb O2 Saturation 90.6 % (95-100) L 04/22/21 20:53 Carboxyhemoglobin 1.5 %THgb (0.4-20.1) 04/22/21 20:53 Methemoglobin 1.2 % (0.4-1.5) 04/22/21 20:53 Total Hemoglobin 12.5 g/dL (12-16) 04/22/21 20:53 Sodium 136.0 mmol/L (131-143) 04/22/21 20:53 Potassium 7.2 mmol/L (3.5-5.0) H 04/22/21 20:53 Glucose 124.0 mg/dL (70-115) H 04/22/21 20:53 Ionized Calcium 1.5 mmol/L (1.1-1.4) H 04/22/21 20:53 O2 Delivery Device Nc 04/22/21 20:53 O2 Liters/Min 3.0 % 04/22/21 20:53 FiO2 32.0 % 04/22/21 20:53 Hire Car Driver ID [place] 04/22/21 20:53 Sodium 137 mmol/L (136-145) 04/24/21 02:53 Potassium 4.5 mmol/L (3.5-5.1) 04/24/21 02:53 Chloride 103 mmol/L (98-107) 04/24/21 02:53 Carbon Dioxide 20 mmol/L (22-29) L 04/24/21 02:53 Anion Gap 18.5 (5-19) 04/24/21 02:53 BUN 71 mg/dL (8-23) H 04/24/21 02:53 Creatinine 2.3 mg/dL (0.5-0.9) H 04/24/21 02:53 GFR Calculation Not Reportable 04/24/21 02:53 Glucose 144 mg/dL (65-115) H 04/24/21 02:53 POC Glucose 127 mg/dL (70-110) H 04/24/21 06:15 Estimat Average Glucose 117 04/22/21 17:41 Hemoglobin A1c 5.7 % (4.0-6.0) 04/22/21 17:41 Calculated Osmolality 307 mOsm/kg (285-295) H 04/24/21 02:53 Calcium 9.5 mg/dL (8.5-10.5) 04/24/21 02:53 Phosphorus 5.4 mg/dL (2.5-4.5) H 04/24/21 02:53 Magnesium 2.0 mg/dL (1.7-2.3) 04/24/21 02:53 Total Bilirubin 0.3 mg/dL (0.15-1.2) 04/23/21 02:50 AST 17 U/L (0-32) 04/23/21 02:50 ALT 12 U/L (0-33) 04/23/21 02:50 Alkaline Phosphatase 79 IU/L (35-105) 04/23/21 02:50 Troponin T Baseline 54 ng/L (0-10) H 04/22/21 17:41 Troponin T 120 Minute 46.26 ng/L (0-10) H 04/22/21 19:52 Delta Troponin T -7.74 ABS# (0-10) L 04/22/21 19:52 Troponin T Hi Sens 6Hr 50.11 ng/L (0-10) H 04/22/21 23:34 Troponin T Hi Sens 6Hr Delta -3.89 ng/L (0-12) L 04/22/21 23:34 NT-Pro-B Natriuret Pep 1384 pg/mL (0-450) H 04/23/21 02:50 Total Protein 6.9 g/dL (6.6-8.7) 04/23/21 02:50 Albumin 4.4 g/dL (3.5-5.2) 04/23/21 02:50 Globulin 2.5 g/dL (1.3-4.6) 04/23/21 02:50 Procalcitonin 0.14 ng/mL (0-0.5) 04/23/21 02:50 TSH 1.28 uIU/mL (0.27-4.20) 04/23/21 02:50 Ur Eosinophil Smear 0 (0-0) 04/23/21 01:04 Urine Eosinophils No eosinophils seen 04/23/21 01:04 Ur Random Sodium 111 mmol/L 04/23/21 01:04 Ur Random Potassium 18 mmol/L 04/23/21 01:04 Ur Random Chloride 123 mmol/L 04/23/21 01:04 Ur Random Urea Nitrogn 198 mg/dL 04/23/21 01:04 Urine Creatinine 22 mg/dL (28-217) L 04/23/21 01:04 Nasal Influ A H1 2009 PCR Not detected (NOT DETECT) 04/23/21 00:50 Urine Opiates Screen Negative ng/mL (Negative) 04/23/21 01:04 Ur Barbiturates Screen Negative ng/mL (Negative) 04/23/21 01:04 Ur Phencyclidine Scrn Negative ng/mL (Negative) 04/23/21 01:04 Ur Amphetamines Screen Negative ng/mL (Negative) 04/23/21 01:04 U Benzodiazepines Scrn Negative ng/mL (Negative) 04/23/21 01:04 Urine Cocaine Screen Negative ng/mL (Negative) 04/23/21 01:04 U Marijuana (THC) Screen Negative ng/mL (Negative) 04/23/21 01:04 Coronavirus 229E (PCR) Not detected (NOT DETECT) 04/23/21 00:50 Influenza A (H1) PCR Not detected (NOT DETECT) 04/23/21 00:50 Influenza A (H3) PCR Not detected (NOT DETECT) 04/23/21 00:50 Influenza Type A (PCR) Not detected (NOT DETECT) 04/23/21 00:50 Influenza Type B (PCR) Not detected (NOT DETECT) 04/23/21 00:50 SARS-CoV-2 (PCR) Not detected (NOT DETECT) 04/23/21 00:50 SARS-CoV-2 Ag (Rapid) Negative (Negative) 04/22/21 17:52 Vitals Last Vital Signs Temp 98.2 F 04/24/21 04:00 Pulse 78 04/24/21 08:29 Resp 20 H 04/24/21 08:29 BP 131/53 04/24/21 08:00 Pulse Ox 96 04/24/21 08:29 Discharge Plan Discharge Patient Disposition: Home Condition: Stable Prescriptions: New Medrol (Kory) 4 mg tablets,dose pack See Rx Instructions .ROUTE .COMPLEX Qty: 21 0RF Rx Instructions: orally per package directions doxycycline hyclate 100 mg tablet 100 mg PO Q12H 3 Days Qty: 6 0RF Continued fluconazole [Diflucan] 150 mg tablet 150 mg PO Q3D Qty: 2 0RF (DME) NEBULIZER TUBING Qty: 1 0RF Rx Instructions: As directed nitroglycerin 2.5 mg capsule, extended release 2.5 mg PO BID Qty: 180 3RF albuterol sulfate 2.5 mg /3 mL (0.083 %) solution for nebulization 2.5 mg INHALATION QID PRN (Reason: shortness of breath or wheezing) Qty: 180 2RF Rx Instructions: 340 B buspirone 5 mg tablet 5 mg PO TID PRN (Reason: anxiety) 90 Days Qty: 270 0RF metoprolol tartrate 25 mg tablet 25 mg PO BID Qty: 180 0RF albuterol sulfate [ProAir HFA] 90 mcg/actuation HFA aerosol inhaler 2 puff INHALATION Q6H PRN (Reason: shortness of breath or wheezing) Qty: 18 5RF multivitamin Tablet 1 tab PO DAILY 0RF atorvastatin 40 mg tablet 40 mg PO BEDTIME 0RF isosorbide mononitrate 30 mg tablet extended release 24 hr 30 mg PO QAM 0RF Plavix 75 mg tablet 75 mg PO QAM 0RF montelukast 10 mg tablet 10 mg PO BEDTIME 0RF Flonase Allergy Relief 50 mcg/actuation spray,suspension 2 spray INTRANASAL DAILY PRN (Reason: Allergy Symptoms) 0RF Rx Instructions: administer into each nostril Incruse Ellipta 62.5 mcg/actuation blister with device 1 inh INHALATION QAM 0RF Held lisinopril 10 mg tablet 10 mg PO QAM 0RF Hold Instructions: Resume on 05/01/21. hydrochlorothiazide 25 mg tablet 25 mg PO QAM 0RF Hold Instructions: Resume on 05/01/21. Discontinued sulfamethoxazole-trimethoprim [Bactrim DS] 800-160 mg tablet 1 tab PO BID Qty: 20 0RF Discharge Orders: Discharge Order (Routine); Ordered 04/24/21 Ordered By: Colton Wall Other Ambulatory Orders: Basic Metabolic Panel (Routine) Timeframe: 2 Days Facility: [facility] - Location: Lab - Main Lab Ordered By: Colton Wall Referrals: Jhoana Gross DO [Primary Care Provider] - 4-7 days Discharge Diet: Cardiac Discharge Activity: Increase activity as tolerated Patient Instructions: Opioid Safety Activity Restrictions/Additional Instructions: Please stop by [facility] in 2 days to have BMP Blood work done. You do not need and appointment for this. Please check in with Admissions prior to heading to the Lab. Thank you Coding Level of Care Code Acute [facility] FW DC note Diagnoses NSTEMI (non-ST elevated myocardial infarction) I21.4 CHF (congestive heart failure) I50.9 KAYLI (acute kidney injury) N17.9 Hyperkalemia E87.5 COPD exacerbation J44.1 Panic attacks F41.0 Sleep apnea G47.30 PAD (peripheral artery disease) I73.9 History of stent insertion of renal artery Z98.890 CKD (chronic kidney disease) N18.9
[2021-04-24 10:18] LABS: ABG PCO2 45.8 mmHg (35-45); ABG PH Result 7.31 (7.35-7.45); Arterial Blood Gas Hematocrit 33.8 % (37-47); Base Excess ABG -3.3 mmol/L (-2.0-2.0); Blood Gas Operator Identificat AMH; Blood Gas Sample Site Brachial, left; Blood Gas Sample Type Arterial; Oxygen Device NC; PO2 ABG 93.7 mmHg (80.0-100.0)
--- NOTE | 2021-04-24 11:54 | PM.PN ---
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 engineer, plan was discussed with the patient and her daughter, currently requiring 3 L at rest most of the time she uses 3 L with CPAP at night, this morning ABG showed improvement in pH and PCO2 Vitals/I&O/Wt Last Vital Signs Temp 98.2 F 04/24/21 04:00 Pulse 67 04/24/21 11:52 Resp 20 H 04/24/21 11:52 BP 131/53 04/24/21 08:00 Pulse Ox 96 04/24/21 11:52 04/23/21 04/24/21 04/24/21 22:59 06:59 14:59 Intake Total 280 / 1760.090 100 / 1860.090 360 / 360 Output Total 1000 / 1000 500 / 1500 500 / 500 Balance -720 / 760.090 -400 / 360.090 -140 / -140 Weight last 48 hrs Weight 67.132 kg Physical Exam Narrative: Clinically patient looks dehydrated Wrinkled skin No active chest pain Clinically doing better Awake and alert Nonfocal neuro exam Very anxious to return home No audible stridor or wheezing Urinary Catheter Management: Callahan: Cath Placed During This Visit: yes Reason for Continuing Indwelling Catheter: Acute Urinary Retention or Obstruction Urinary Catheter Date of Insertion: 04/23/21 Urinary Catheter Time of Insertion: 01:04 Data : 04/24/21 02:53 04/24/21 02:53 Micro: Microbiology 04/23/21 04:57 Gram Stain - Final Sputum - Expectorated Sputum Sputum Culture - Preliminary 04/23/21 01:04 Urine Culture - Preliminary Urine Catheterized A&P Assessment and plan (1) KAYLI (acute kidney injury): Status: Acute (2) NSTEMI (non-ST elevated myocardial infarction): Status: Acute (3) Hyperkalemia: Status: Acute (4) COPD exacerbation: Status: Acute (5) Single kidney: Status: Acute (6) Sleep apnea: Status: Acute (7) History of stent insertion of renal artery: Status: Acute Plan COPD exacerbation, acute on chronic hypoxia uses oxygen 3 L at night, currently requiring in the daytime CTA chest unremarkable for PE Changed to p.o. doxycycline Continue DuoNeb and inhaled steroids Acute on chronic kidney disease Creatinine trending down she did receive contrast on 04/22 Clinically looks dry negative fluid balance Encourage patient for renal diet, I will add IV fluids at moderate rate Check urine electrolytes and protein She will need outpatient nephrology follow-up for sure Hold nephrotoxic agents such as lisinopril Hyperkalemia improved hyperphosphatemia added PhosLo Adequate urine output Type II NV no active chest pain Full code Renal diet DVT prophylaxis on board Attestations Medical Necessity Statement*: Continue medical management for kidney function monitoring Time Spent in Patient Care: 20 minutes Coding Level of Care Code Acute [employer] Supervisor for Chg Fwd Diagnoses KAYLI (acute kidney injury) N17.9 NSTEMI (non-ST elevated myocardial infarction) I21.4 Hyperkalemia E87.5 COPD exacerbation J44.1 Single kidney Z90.5 Sleep apnea G47.30 History of stent insertion of renal artery Z98.890
[2021-04-24 11:56] LABS: Glucose Point of Care 107 mg/dL (70-110)
[2021-04-24] MEDS: calcium acetate 667 mg Capsule 1334 MG PO ×2 (12:00→18:26)
[2021-04-24] MEDS: sodium chloride 0.9% 1,000 ML 75 ML IV (15:10)
[2021-04-24 16:23] LABS: Osmolality Urine 344 mOsm/kg (50-1200)
[2021-04-24 17:13] LABS: Glucose Point of Care 115 mg/dL (70-110)
[2021-04-24 17:47] LABS: Urine Creatinine 129 mg/dL (28-217); Urine Random Sodium 36 mmol/L
[2021-04-24 17:52] LABS: Creatinine Urine, Random 128 mg/dL (28-217); Microalbum Creatinine Ratio Ur 16 mg/dL (0-20); Microalbumin Random Urine 2 ug/dL (0-20)
[2021-04-24] MEDS: doxycycline 100 mg Tablet PO (18:27)
[2021-04-24 19:04] LABS: Urine Random Chloride > 10 mmol/L
[2021-04-24 20:10] LABS: Eosinophil Urine No Eosinophils Seen; Urine Eosinophil Count 0 (0-0)
[2021-04-24] MEDS: pantoprazole DR 40 mg Tablet PO (20:50)
[2021-04-24] MEDS: atorvastatin 40 mg Tablet PO (20:50)
[2021-04-24] MEDS: BuSPIRONE 10 mg Tablet 5 MG PO (20:50)
[2021-04-24] MEDS: benzonatate 100 mg Capsule PO (21:34)
[2021-04-24] MEDS: hyDROXYzine 25 mg Capsule PO (21:34)
--- NOTE | 2021-04-24 22:33 | PC.NURSE ---
Patient requested something for sleep and for persistent dry cough. Informed Dr Thakkar and received telephone orders for vistaril 25mg PO once for sleep and Tessalon Miriam 100mg TID PO PRN for cough. RBVO
[2021-04-25] VITALS (7 sets, daily range): BP systolic 156–161; BP diastolic 62–69; PULSE 72–89; RESP 15–24; TEMP 35.7; O2SAT 88–98
[2021-04-25] MEDS: sodium chloride 0.9% 1,000 ML 75 ML IV (02:02)
[2021-04-25 03:51] LABS: Magnesium 1.9 mg/dL (1.7-2.3); Phosphorus 4.1 mg/dL (2.5-4.5)
[2021-04-25 03:53] LABS: Anion Gap 12.9 (5-19); Blood Urea Nitrogen 58 mg/dL (8-23); Calcium 8.1 mg/dL (8.5-10.5); Carbon Dioxide 24 mmol/L (22-29); Chloride 106 mmol/L (98-107); Glucose 89 mg/dL (65-115); Osmolality Calculated 304 mOsm/kg (285-295); Potassium 3.9 mmol/L (3.5-5.1); Sodium 139 mmol/L (136-145)
[2021-04-25] MEDS: ipratropium-albuterol 3 mL Neb INHALATION (04:12)
--- NOTE | 2021-04-25 07:38 | P.DS_ITS ---
Discharge Providers Date of Admission: 04/23/21 17:04 Date of Discharge: April 25, 2021 Attending Provider at Admission: Kobi Thakkar MD Attending Provider at Discharge: Colton Wall MD Primary Care Provider: Jhoana Gross DO Diagnoses at Discharge Discharge Diagnosis (1) KAYLI (acute kidney injury): Status: Acute (2) NSTEMI (non-ST elevated myocardial infarction): Status: Acute (3) Hyperkalemia: Status: Acute (4) COPD exacerbation: Status: Acute (5) Single kidney: Status: Acute (6) Sleep apnea: Status: Acute (7) History of stent insertion of renal artery: Status: Acute Permanent problem details: X 3 LEFT KIDNEY Reason for Visit Reason for Visit: SOB Hospital Course Hospital Course Admitting note by Dr. [place] Bridgette Malik is a 76 year old female with a past medical history of abdominal aortic aneurysm status post repair suffering complications of left renal saccular, left above-knee amputation, CHF, history of ischemic cardiomyopathy, peripheral arterial disease who presents [facility] due to diarrhea, fatigue, malaise, shortness of breath, some persistent sinus symptoms.? She was seen by her primary care provider on the , was placed on antibiotics, for sinus symptoms, however she continued to complain of shortness of breath, productive cough, weakness, feeling tremulous, she also reports using oxygen during the day, she uses CPAP at home, usually uses oxygen at night, but now is using it during the day.? Here in the emergency room she was found to have 3 L nasal cannula, CT angiogram negative for pulmonary emboli, no focal infiltrates, BNP elevated at 979, was found to be hyperkalemic potassium 7.8, creatinine 2.1.? Was given insulin, D50, repeat event insulin, D10, calcium gluconate, albuterol.? No chest pain complaints, no significant EKG changes, most recent potassium 6.4 Hospital course Patient was admitted for management and evaluation of hypercapnic respiratory failure, which improved with use of BiPAP, she suffered from acute on chronic kidney disease which improved significantly with IV fluid, hyperkalemia improved as well, creatinine at time of admission 2.0 which worsened up to 2.4 and after IV fluids it improved to 1.7 at the time of discharge. She did put out good amount of urine. No signs of hydronephrosis. Phosphorus improved after treatment with PhosLo. I have given her referral to see Dr. Vences outpatient & a prescription to check creatinine after 2 days. I have discontinued her lisinopril and hydrochlorothiazide at discharge, for her hypertension I will add hydralazine and amlodipine. Her troponin leak most likely was related to KAYLI no active chest pain or significant changes on EKG noted. Echo showed grade 1 diastolic dysfunction EF 57% without significant wall motion abnormality. For COPD exacerbation I will give her a Medrol pack and doxycycline course for symptom relief however cultures negative. No significant leukocytosis, she remained afebrile. Physical Exam Narrative: Clinically patient looks somewhat dehydrated however improved since yesterday Wrinkled skin No active chest pain Clinically doing better Awake and alert Nonfocal neuro exam Very anxious to return home No audible stridor or wheezing Urinary Catheter Management: Callahan: Cath Placed During This Visit: yes, but has since been removed by the nurse Reason for Continuing Indwelling Catheter: Does Not Meet Criteria Urinary Catheter Date of Insertion: 04/23/21 Urinary Catheter Time of Insertion: 01:04 Date Urinary Catheter Removed: 04/24/21 Time Urinary Catheter Discontinued: 10:30 Discharge Data Studies Completed and Pending Completed Studies During Hospitalization Category Date Time Status CTA chest [CT angio chest PE protcl [id number]] Urgent Cat Scan 04/22/21 18:19 Completed XR chest 1V portable [id number] Stat Exams 04/22/21 15:43 Completed CV. echo complete* [id number] Routine Ultrasound 04/23/21 23:35 Completed US renal BI* [id number] Routine Ultrasound 04/23/21 23:35 Completed Pending at discharge Category Date Time Status Clostridioides Difficile PCR Routine Lab 04/22/21 23:16 Ordered Enteric Bacterial Panel by PCR Routine Lab 04/22/21 23:16 Ordered Enteric Parasite Panel by PCR Routine Lab 04/22/21 23:16 Ordered Immunochemical Fecal OCB Routine Lab 04/22/21 23:16 Ordered Lactoferrin Routine Lab 04/22/21 23:16 Ordered Sputum Culture and Gram Stain Stat Lab 04/23/21 04:57 Results Urine Culture Stat Lab 04/23/21 01:04 Results Radiology Impressions Chest X-Ray 04/22/21 15:43 IMPRESSION: No acute chest abnormality. Chest CTA 04/22/21 18:19 IMPRESSION: 1. No evidence for pulmonary embolus. 2. Old granulomatous disease. 3. Atrophic left kidney. COMMENTS: Consistent with the [employer]'s Incidental Findings Committee white paper (J Am David Radiol 2018): Any incidental renal lesion less than 1 cm or classified as too small to characterize, or any incidental cystic renal lesion characterized as simple-appearing, is likely benign. No follow-up imaging is recommended for these lesions per consensus recommendations based on imaging criteria. Renal Ultrasound 04/23/21 23:35 IMPRESSION: 1. No hydronephrosis in the RIGHT kidney. 2. Atrophic LEFT kidney difficult to visualize. 3. Callahan catheter in place. Laboratory Results WBC 8.4 10^3/uL (4.0-10.0) 04/24/21 02:53 RBC 3.89 10^6/uL (4.1-5.3) L 04/24/21 02:53 Hgb 11.1 g/dL (11.5-15.3) L 04/24/21 02:53 Hct 35.7 % (37.0-47.0) L 04/24/21 02:53 MCV 91.8 fl (81-99) 04/24/21 02:53 MCH 28.5 pg (28.0-34.0) 04/24/21 02:53 MCHC 31.1 g/dL (30.0-36.0) 04/24/21 02:53 RDW 13.6 % (12.1-15.1) 04/24/21 02:53 Plt Count 209 10^3/cmm (130-400) 04/24/21 02:53 MPV 10.2 fL (7.4-10.4) 04/24/21 02:53 Neut % (Auto) 87.6 % 04/24/21 02:53 Lymph % (Auto) 6.7 % 04/24/21 02:53 [place] % (Auto) 5.2 % 04/24/21 02:53 Eos % (Auto) 0.0 % 04/24/21 02:53 Baso % (Auto) 0.0 % 04/24/21 02:53 Neut # (Auto) 7.37 10^3/uL (1.8-7.7) 04/24/21 02:53 Lymph # (Auto) 0.6 10^3/uL (0.8-4.8) L 04/24/21 02:53 [place] # (Auto) 0.4 10^3/uL (0.2-0.9) 04/24/21 02:53 Eos # (Auto) 0.0 10^3/uL (0.0-0.8) 04/24/21 02:53 Baso # (Auto) 0.0 10^3/uL (0.0-0.1) 04/24/21 02:53 Nucleated RBC % (auto) 0 % 04/24/21 02:53 Nucleated RBCs # 0.0 /100WBC 04/24/21 02:53 PT 14.00 SECONDS (12.1-14.9) 04/24/21 02:53 INR 1.05 (0.8-1.2) 04/24/21 02:53 D-Dimer 6.26 ug/mIFEU (0-0.59) H 04/22/21 17:41 Specimen Type Arterial 04/24/21 10:06 Sample Site Brachial, left 04/24/21 10:06 ABG pH 7.31 (7.35-7.45) L 04/24/21 10:06 ABG pCO2 45.8 mmHg (35-45) H 04/24/21 10:06 ABG pO2 93.7 mmHg (80.0-100.0) 04/24/21 10:06 ABG HCO3 23.0 mmol/L (22-26) 04/24/21 10:06 ABG O2 Saturation 93.2 04/22/21 20:53 ABG Base Excess -3.3 mmol/L (-2.0-2.0) L 04/24/21 10:06 Jean Test N/a 04/24/21 10:06 A-a O2 Gradient 11.7 mmHg (5-10) H 04/22/21 20:53 Hematocrit 33.8 % (37-47) L 04/24/21 10:06 Hgb O2 Saturation 90.6 % (95-100) L 04/22/21 20:53 Carboxyhemoglobin 1.5 %THgb (0.4-20.1) 04/22/21 20:53 Methemoglobin 1.2 % (0.4-1.5) 04/22/21 20:53 Total Hemoglobin 12.5 g/dL (12-16) 04/22/21 20:53 Sodium 136.0 mmol/L (131-143) 04/22/21 20:53 Potassium 7.2 mmol/L (3.5-5.0) H 04/22/21 20:53 Glucose 124.0 mg/dL (70-115) H 04/22/21 20:53 Ionized Calcium 1.5 mmol/L (1.1-1.4) H 04/22/21 20:53 O2 Delivery Device Nc 04/24/21 10:06 O2 Liters/Min 3.0 % 04/24/21 10:06 FiO2 32.0 % 04/24/21 10:06 Unit Receptionist ID Amh 04/24/21 10:06 Sodium 139 mmol/L (136-145) 04/25/21 03:13 Potassium 3.9 mmol/L (3.5-5.1) 04/25/21 03:13 Chloride 106 mmol/L (98-107) 04/25/21 03:13 Carbon Dioxide 24 mmol/L (22-29) 04/25/21 03:13 Anion Gap 12.9 (5-19) 04/25/21 03:13 BUN 58 mg/dL (8-23) H 04/25/21 03:13 Creatinine 1.7 mg/dL (0.5-0.9) H 04/25/21 03:13 GFR Calculation Not Reportable 04/25/21 03:13 Glucose 89 mg/dL (65-115) 04/25/21 03:13 POC Glucose 115 mg/dL (70-110) H 04/24/21 16:36 Estimat Average Glucose 117 04/22/21 17:41 Hemoglobin A1c 5.7 % (4.0-6.0) 04/22/21 17:41 Calculated Osmolality 304 mOsm/kg (285-295) H 04/25/21 03:13 Calcium 8.1 mg/dL (8.5-10.5) L 04/25/21 03:13 Phosphorus 4.1 mg/dL (2.5-4.5) 04/25/21 03:13 Magnesium 1.9 mg/dL (1.7-2.3) 04/25/21 03:13 Total Bilirubin 0.3 mg/dL (0.15-1.2) 04/23/21 02:50 AST 17 U/L (0-32) 04/23/21 02:50 ALT 12 U/L (0-33) 04/23/21 02:50 Alkaline Phosphatase 79 IU/L (35-105) 04/23/21 02:50 Troponin T Baseline 54 ng/L (0-10) H 04/22/21 17:41 Troponin T 120 Minute 46.26 ng/L (0-10) H 04/22/21 19:52 Delta Troponin T -7.74 ABS# (0-10) L 04/22/21 19:52 Troponin T Hi Sens 6Hr 50.11 ng/L (0-10) H 04/22/21 23:34 Troponin T Hi Sens 6Hr Delta -3.89 ng/L (0-12) L 04/22/21 23:34 NT-Pro-B Natriuret Pep 1384 pg/mL (0-450) H 04/23/21 02:50 Total Protein 6.9 g/dL (6.6-8.7) 04/23/21 02:50 Albumin 4.4 g/dL (3.5-5.2) 04/23/21 02:50 Globulin 2.5 g/dL (1.3-4.6) 04/23/21 02:50 Procalcitonin 0.14 ng/mL (0-0.5) 04/23/21 02:50 TSH 1.28 uIU/mL (0.27-4.20) 04/23/21 02:50 Ur Eosinophil Smear 0 (0-0) 04/24/21 15:45 Urine Eosinophils No eosinophils seen 04/24/21 15:45 Urine Osmolality 344 mOsm/kg (50-1200) 04/23/21 01:04 Ur Random Microalbumin 2 ug/dL (0-20) 04/24/21 15:45 Ur Random Sodium 36 mmol/L 04/24/21 15:45 Ur Random Potassium 18 mmol/L 04/23/21 01:04 Ur Random Chloride > 10 mmol/L 04/24/21 15:45 Ur Random Urea Nitrogn 198 mg/dL 04/23/21 01:04 Urine Creatinine 128 mg/dL (28-217) 04/24/21 15:45 Urine Creatinine 129 mg/dL (28-217) 04/24/21 15:45 Microalb/Creat Ratio 16 mg/dL (0-20) 04/24/21 15:45 Nasal Influ A H1 2009 PCR Not detected (NOT DETECT) 04/23/21 00:50 Urine Opiates Screen Negative ng/mL (Negative) 04/23/21 01:04 Ur Barbiturates Screen Negative ng/mL (Negative) 04/23/21 01:04 Ur Phencyclidine Scrn Negative ng/mL (Negative) 04/23/21 01:04 Ur Amphetamines Screen Negative ng/mL (Negative) 04/23/21 01:04 U Benzodiazepines Scrn Negative ng/mL (Negative) 04/23/21 01:04 Urine Cocaine Screen Negative ng/mL (Negative) 04/23/21 01:04 U Marijuana (THC) Screen Negative ng/mL (Negative) 04/23/21 01:04 Coronavirus 229E (PCR) Not detected (NOT DETECT) 04/23/21 00:50 Influenza A (H1) PCR Not detected (NOT DETECT) 04/23/21 00:50 Influenza A (H3) PCR Not detected (NOT DETECT) 04/23/21 00:50 Influenza Type A (PCR) Not detected (NOT DETECT) 04/23/21 00:50 Influenza Type B (PCR) Not detected (NOT DETECT) 04/23/21 00:50 SARS-CoV-2 (PCR) Not detected (NOT DETECT) 04/23/21 00:50 SARS-CoV-2 Ag (Rapid) Negative (Negative) 04/22/21 17:52 Vitals Last Vital Signs Temp 98.4 F 04/24/21 16:29 Pulse 76 04/25/21 04:52 Resp 15 04/25/21 04:11 BP 161/62 04/25/21 03:20 Pulse Ox 95 04/25/21 04:11 Discharge Plan Discharge Patient Disposition: Home Condition: Stable Prescriptions: New Medrol (Kory) 4 mg tablets,dose pack See Rx Instructions .ROUTE .COMPLEX Qty: 21 0RF Rx Instructions: orally per package directions doxycycline hyclate 100 mg tablet 100 mg PO Q12H 3 Days Qty: 6 0RF amlodipine 10 mg tablet 10 mg PO DAILY Qty: 30 3RF hydralazine 25 mg tablet 25 mg PO TID Qty: 90 1RF Continued fluconazole [Diflucan] 150 mg tablet 150 mg PO Q3D Qty: 2 0RF (DME) NEBULIZER TUBING Qty: 1 0RF Rx Instructions: As directed nitroglycerin 2.5 mg capsule, extended release 2.5 mg PO BID Qty: 180 3RF albuterol sulfate 2.5 mg /3 mL (0.083 %) solution for nebulization 2.5 mg INHALATION QID PRN (Reason: shortness of breath or wheezing) Qty: 180 2RF Rx Instructions: 340 B buspirone 5 mg tablet 5 mg PO TID PRN (Reason: anxiety) 90 Days Qty: 270 0RF metoprolol tartrate 25 mg tablet 25 mg PO BID Qty: 180 0RF albuterol sulfate [ProAir HFA] 90 mcg/actuation HFA aerosol inhaler 2 puff INHALATION Q6H PRN (Reason: shortness of breath or wheezing) Qty: 18 5RF multivitamin Tablet 1 tab PO DAILY 0RF atorvastatin 40 mg tablet 40 mg PO BEDTIME 0RF isosorbide mononitrate 30 mg tablet extended release 24 hr 30 mg PO QAM 0RF Plavix 75 mg tablet 75 mg PO QAM 0RF montelukast 10 mg tablet 10 mg PO BEDTIME 0RF Flonase Allergy Relief 50 mcg/actuation spray,suspension 2 spray INTRANASAL DAILY PRN (Reason: Allergy Symptoms) 0RF Rx Instructions: administer into each nostril Incruse Ellipta 62.5 mcg/actuation blister with device 1 inh INHALATION QAM 0RF Held lisinopril 10 mg tablet 10 mg PO QAM 0RF Hold Instructions: Resume on 05/01/21. hydrochlorothiazide 25 mg tablet 25 mg PO QAM 0RF Hold Instructions: Resume on 05/01/21. Discontinued sulfamethoxazole-trimethoprim [Bactrim DS] 800-160 mg tablet 1 tab PO BID Qty: 20 0RF Discharge Orders: Discharge Order (Routine); Ordered 04/25/21 Ordered By: Colton Wall Other Ambulatory Orders: Basic Metabolic Panel (Routine) Timeframe: 2 Days Facility: [facility] - Location: Lab - Main Lab Ordered By: Colton Wall DME: Oxygen (Order) Location: None Selected Ordered By: Colton Wall Referrals: Vu Vences MD [Referring] - 7-10 days Jhoana Gross DO [Primary Care Provider] - 4-7 days (Follow up with Dr. Gross. The appt is on 05/01/21 at 1:00 pm. The phone# is [phone].) Discharge Diet: Cardiac Discharge Activity: Increase activity as tolerated Patient Instructions: Doxycycline (By mouth) (Acticlate, Adoxa, Avidoxy, Monodox, Doryx), Methylprednisolone (By mouth) (Medrol, Medrol Dosepak), Opioid Safety Activity Restrictions/Additional Instructions: Please stop by [facility] in 2 days to have BMP Blood work done. You do not need and appointment for this. Please check in with Admissions prior to heading to the Lab. Thank you Discharge Attestations Time Spent in Discharge Care*: less than 30 min Quality Metrics Clinical Quality Measures [ No reported AMI, CVA or VTE this stay] Coding Level of Care Code Acute Chg FW DC note Diagnoses KAYLI (acute kidney injury) N17.9 NSTEMI (non-ST elevated myocardial infarction) I21.4 Hyperkalemia E87.5 COPD exacerbation J44.1 Single kidney Z90.5 Sleep apnea G47.30 History of stent insertion of renal artery Z98.890
[2021-04-25] MEDS: calcium acetate 667 mg Capsule 1334 MG PO (10:35)
[2021-04-25] MEDS: doxycycline 100 mg Tablet PO (10:36)
[2021-04-25] MEDS: clopidogrel 75 mg Tablet PO (10:36)
[2021-04-25] MEDS: metoprolol tartrate 25 mg Tablet PO (10:37)
[2021-04-25] MEDS: isosorbide mononitrate ER 30 mg Tablet PO (10:37)
--- NOTE | 2021-04-25 11:06 | PC.NURSE ---
Pt does not want to wait for oxygen to be delivered to go home with. States that she lives 2 min away and will be ok to make it home.
== END 2021-04-25 13:30 | disposition home health service (06) | DRG 682 ==
LOC: ER 17:20 → CSU 22:49
PROVIDERS: Emergency Medicine; Physician Assistant; Admitting Provider Family Medicine; Emergency Provider Physician Assistant; PCP Family Medicine; Visit Provider Internal Medicine
DX: N17.9 Acute kidney failure, unspecified (principal); I21.A1 Myocardial infarction type 2; I50.43 Acute on chronic combined systolic (congestive) and diastolic (congestive) heart failure; I13.0 Hypertensive heart and chronic kidney disease with heart failure and stage 1 through stage 4 chronic kidney disease, or unspecified chronic kidney disease; E87.4 Mixed disorder of acid-base balance; E87.5 Hyperkalemia; Z89.612 Acquired absence of left leg above knee; N18.9 Chronic kidney disease, unspecified; D64.9 Anemia, unspecified; I25.10 Atherosclerotic heart disease of native coronary artery without angina pectoris; J43.1 Panlobular emphysema; E78.5 Hyperlipidemia, unspecified; K21.9 Gastro-esophageal reflux disease without esophagitis; I25.5 Ischemic cardiomyopathy; I34.0 Nonrheumatic mitral (valve) insufficiency; I25.2 Old myocardial infarction; I73.9 Peripheral vascular disease, unspecified; Z90.5 Acquired absence of kidney; F17.210 Nicotine dependence, cigarettes, uncomplicated; Z79.51 Long term (current) use of inhaled steroids; R73.9 Hyperglycemia, unspecified; G47.30 Sleep apnea, unspecified; Z99.81 Dependence on supplemental oxygen; I48.91 Unspecified atrial fibrillation
CPT/HCPCS: 36415; 36416; 36600; 51702; 71045; 71275; 76770; 80048; 80051; 80053; 80306; 82044; 82330; 82436; 82570; 82803; 82805; 82962; 83036; 83735; 83880; 83935; 84100; 84132; 84133; 84145; 84300; 84443; 84484; 84540; 85025; 85378; 85610; 85999; 87070; 87086; 87205; 87426; 87631; 87635; 93005; 93306; 94640; 94660; 94664; 96365; 96372; 96375; 97110; 97161; 97166; 97530; 97535; 99285; C9113; G0378; J0610; J1644; J1815; J1940; J2920; J2930; J3105; J3490; J7030; J7611; J7626; Q9967

== ENCOUNTER 2021-04-28 10:29 | Outpatient (CLI) | payer MEDICARE, OTHER, SELFPAY ==
[2021-04-28 12:17] LABS: Blood Urea Nitrogen 33 mg/dL (8-23); Calcium 9.6 mg/dL (8.5-10.5); Carbon Dioxide 23 mmol/L (22-29); Chloride 106 mmol/L (98-107); Glucose 81 mg/dL (65-115); Osmolality Calculated 292 mOsm/kg (285-295); Sodium 138 mmol/L (136-145)
== END 2021-04-28 10:30 | disposition home or self-care (01) ==
PROVIDERS: PCP Family Medicine; Visit Provider Internal Medicine
DX: N17.9 Acute kidney failure, unspecified (principal)
CPT/HCPCS: 36415; 80048

== ENCOUNTER → 2021-05-19 13:51 | Outpatient (BNVA) | payer MEDICARE, OTHER, SELFPAY | PROVIDERS: PCP Family Medicine; Visit Provider Internal Medicine Cardiovascular Disease | DX: I25.119 Atherosclerotic heart disease of native coronary artery with unspecified angina pectoris (principal); I11.0 Hypertensive heart disease with heart failure; I50.43 Acute on chronic combined systolic (congestive) and diastolic (congestive) heart failure | CPT/HCPCS: 99214 ==

== ENCOUNTER 2021-05-30 12:20 | Outpatient (CLI) | payer MEDICARE, OTHER, SELFPAY ==
[2021-05-30 13:46] LABS: NT Pro B Type Natriuretic Pept 1275 pg/mL (0-450)
[2021-05-30 14:00] LABS: Anion Gap 16.9 (5-19); Blood Urea Nitrogen 28 mg/dL (8-23); Calcium 9.7 mg/dL (8.5-10.5); Carbon Dioxide 28 mmol/L (22-29); Chloride 91 mmol/L (98-107); Glucose 106 mg/dL (65-115); Osmolality Calculated 280 mOsm/kg (285-295); Potassium 3.9 mmol/L (3.5-5.1); Sodium 132 mmol/L (136-145)
== END 2021-05-30 12:21 | disposition home or self-care (01) ==
PROVIDERS: PCP Family Medicine; Visit Provider Internal Medicine Cardiovascular Disease
DX: I10 Essential (primary) hypertension (principal); I25.119 Atherosclerotic heart disease of native coronary artery with unspecified angina pectoris; I50.43 Acute on chronic combined systolic (congestive) and diastolic (congestive) heart failure
CPT/HCPCS: 80048; 83735; 83880

== ENCOUNTER → 2021-09-26 13:28 | Outpatient (BNVA) | payer MEDICARE, OTHER, SELFPAY | PROVIDERS: PCP Family Medicine; Visit Provider Family Medicine | DX: R05.9 Cough, unspecified (principal); R50.9 Fever, unspecified; B02.9 Zoster without complications; Z20.822 Contact with and (suspected) exposure to COVID-19 | CPT/HCPCS: 87635 ==

== ENCOUNTER 2021-10-13 15:18 | Outpatient (CLI) | payer MEDICARE, OTHER, SELFPAY | END 2021-10-13 15:19 | disposition home or self-care (01) | PROVIDERS: PCP Family Medicine; Visit Provider Family Medicine | DX: B02.9 Zoster without complications (principal); R10.9 Unspecified abdominal pain | CPT/HCPCS: 80053; 81003 ==

== ENCOUNTER → 2021-11-18 14:30 | Outpatient (BNVA) | payer MEDICARE, OTHER, SELFPAY | PROVIDERS: PCP Family Medicine; Visit Provider Internal Medicine Cardiovascular Disease | DX: I13.0 Hypertensive heart and chronic kidney disease with heart failure and stage 1 through stage 4 chronic kidney disease, or unspecified chronic kidney disease (principal); F17.210 Nicotine dependence, cigarettes, uncomplicated; N18.9 Chronic kidney disease, unspecified; I50.43 Acute on chronic combined systolic (congestive) and diastolic (congestive) heart failure; I25.5 Ischemic cardiomyopathy; I34.0 Nonrheumatic mitral (valve) insufficiency; I73.9 Peripheral vascular disease, unspecified; Z98.890 Other specified postprocedural states | CPT/HCPCS: 99214 ==

== ENCOUNTER → 2022-04-21 10:26 | Outpatient (BNVA) | payer MEDICARE, OTHER, SELFPAY | PROVIDERS: PCP Family Medicine; Visit Provider Family Medicine | DX: I10 Essential (primary) hypertension (principal) | CPT/HCPCS: 80053; 80061; 85025 ==

== ENCOUNTER → 2022-04-22 10:46 | Outpatient (BNVA) | payer MEDICARE, OTHER, SELFPAY | PROVIDERS: PCP Family Medicine; Visit Provider Family Medicine | DX: I10 Essential (primary) hypertension (principal) | CPT/HCPCS: 82043 ==

== ENCOUNTER → 2022-08-17 14:02 | Outpatient (BNVA) | payer MEDICARE, OTHER, SELFPAY | PROVIDERS: PCP Family Medicine; Visit Provider Internal Medicine Cardiovascular Disease | DX: I10 Essential (primary) hypertension (principal); I25.5 Ischemic cardiomyopathy; R09.89 Other specified symptoms and signs involving the circulatory and respiratory systems; I65.23 Occlusion and stenosis of bilateral carotid arteries; I73.9 Peripheral vascular disease, unspecified; I34.0 Nonrheumatic mitral (valve) insufficiency; Z98.890 Other specified postprocedural states; F17.210 Nicotine dependence, cigarettes, uncomplicated | CPT/HCPCS: 99214 ==

== ENCOUNTER 2022-09-07 09:46 | Outpatient (CLI) | payer MEDICARE, OTHER, SELFPAY ==
--- NOTE | 2022-09-07 09:45 | USCV_ITS ---
MalikBridgette atkins Age: 77 Gender: F : 1945 Exam Date: 09/07/2022 10:06 Ordering Phys: Loree Salazar MD ([email or web address]) Technologist: CT Exam Location: [facility] [place] Indication: AAA SCREENING HISTORY: Diameter (cm) AP x Transverse x Length Velocity (cm/s) Waveform Prox Aorta: 2.45 x 2.26 x 83.20 Triphasic Mid Aorta: 2.74 x 2.51 x 69.30 Triphasic Distal Aorta: 2.90 x 3.19 x Right Iliac Prox: x x Left Iliac Prox: x x Stent Prox Landing x x Aneurysmal Sac Max x x Lt Lat Sac Dim Rt Lat Sac Dim Stent Dist Landing x x Right Iliac Stent x x Left Iliac Stent x x Right Renal Art Left Renal Art FINDINGS: Comparison:. 09/20/15. The abdominal aorta could not be adequately visualized. Partially obscured aorta, measurements are not as larger as on the prior exam. Neither iliac artery seen. CONCLUSIONS Limited evaluation of aorta. Diameter is not as large today as on the prior exam from 2016. Recommend CTA evaluation of the abdominal aorta. Dr. Nikki Loera DO (Electronically Signed) Final Date: 10 September 2022 12:00 S
--- NOTE | 2022-09-07 10:30 | USCV_ITS ---
Bridgette Malik Age: 77 Gender: F : 1945 Exam Date: 09/07/2022 10:46 Ordering Phys: Loree Salazar MD ([email or web address]) Technologist: [place] [facility] [place]ication: pvd Risk Factors: Previous Vascular Surgery: RIGHT LEFT BP: 155.0 / 75.00 BP: 151.0/ 70.00 0 0 Waveform Velocity (cm/s) Velocity (cm/s) Waveform Monophasic 332.0 Iliac Prox Monophasic 194.1 Iliac Mid Monophasic 139.8 Iliac Distal Monophasic 150.6 NAUTICAL INSTRUMENT MECHANIC 56.8 Monophasic Monophasic 82.0 SFA Prox N/A 0.0 SFA Mid Monophasic SFA Dist Monophasic 42.1 POP N/A BELT LOOP MACHINE OPERATOR Monophasic 31.3 DPA 0.7 OSORIO FINDINGS left leg removed mid thigh, High velocity monophasic waveforms in the right proximal iliac artery. Moderate to heavy plaques are noted in this artery Monophasic Doppler waveforms throughout the right side. No Doppler flow signals in the right mid SFA and posterior tibial artery. No Doppler flow signals in the left iliac artery. Monophasic, low velocity continuous waveform in the left common femoral and profundofemoral artery. No Doppler signals in the proximal or mid superficial femoral artery. Resting OSORIO of 0.7 on the right side Mid thigh amputation on the left side CONCLUSIONS 1. Abnormal resting OSORIO of 0.7 on the right side 2. Features of high-grade lesion in the proximal iliac artery on the right side 3. Features of total occlusion of the mid superficial femoral artery and posterior tibial artery on the right side 4. Features of total occlusion of the iliac artery and superficial femoral artery on the left side with some collateral filling in the common femoral and profundofemoral artery. Compared to the study from 12/22/2016, the occlusion of the mid SFA and posterior tibial artery on the right side appear to be new. Dr Gayle Valdovinos MD [facility] (Electronically Signed) Final Date: 11 September 2022 09:19 S
--- NOTE | 2022-09-07 11:15 | USCV_ITS ---
MalikBridgette atkins Age: 77 Gender: F : 1945 Exam Date: 09/07/2022 10:18 Ordering Phys: Loree Salazar MD ([email or web address]) Technologist: CT Exam [place] [facility] [place] Indication: stenosis Risk Factors: Previous Vascular Surgery: Right Brachial BP: / Left Brachial BP: / Right Left Velocity (cm/s) Spectral Plaque Velocity (cm/s) Spectral Plaque Syst/Diast Broadening Syst/Diast Broadening 78.00/ 17.70 Prox CCA 103.60/ 17.60 60.30/ 21.80 Mid CCA 111.40/ 23.20 39.60/ 16.10 Distal CCA 91.50 / 29.80 334.70/99.40 Prox ICA 307.60/ 86.60 109.10/31.40 Mid ICA 161.80/ 43.30 100.10/29.80 Distal ICA 139.00/ 36.50 70.30 ECA 127.90 5.55 ICA/CCA 2.70 Antegrade Vertebral Antegrade 98.10/ 25.40 cm/s 84.30/ 27.30 cm/s Bi Subclavian Bi 103.6 278.0 0 0 FINDINGS Comparison:. CTA 07/29/17. US 10/12/19 Diffuse bilateral scattered calcified plaque and intimal thickening throughout the common carotid arteries and extending through the bifurcation. Significant plaque at the bifurcations with stenosis. Progression of stenosis since the prior exam. Antegrade vertebral arteries. CONCLUSIONS Right ICA stenosis 70-99%. Left ICA stenosis 50-69%. Progression of plaque and stenosis since the prior exam. Dr. Nikki Loera DO (Electronically Signed) Final Date: 07 September 2022 12:22 S
== END 2022-09-07 09:47 | disposition home or self-care (01) ==
PROVIDERS: PCP Family Medicine; Visit Provider Internal Medicine Cardiovascular Disease
DX: R09.89 Other specified symptoms and signs involving the circulatory and respiratory systems (principal); I65.23 Occlusion and stenosis of bilateral carotid arteries; I73.9 Peripheral vascular disease, unspecified
CPT/HCPCS: 93880; 93925; 93978

== ENCOUNTER → 2022-10-20 11:51 | Outpatient (BNVA) | payer MEDICARE, OTHER, SELFPAY | PROVIDERS: PCP Family Medicine; Visit Provider Family Medicine | DX: I10 Essential (primary) hypertension (principal) | CPT/HCPCS: 80053 ==

== ENCOUNTER → 2022-12-24 15:16 | Outpatient (BNVA) | payer MEDICARE, OTHER, SELFPAY | PROVIDERS: PCP Family Medicine; Visit Provider Registered Nurse Neonatal Intensive Care | DX: R35.0 Frequency of micturition (principal); R39.9 Unspecified symptoms and signs involving the genitourinary system; J01.90 Acute sinusitis, unspecified | CPT/HCPCS: 81000; 87086 ==

== ENCOUNTER 2023-03-28 01:35 | Inpatient (IN) | payer MEDICARE, OTHER, SELFPAY ==
[2023-03-28] VITALS (144 sets, daily range): BP systolic 95–188; BP diastolic 43–110; PULSE 53–107; RESP 15–31; TEMP 36.8; O2SAT 83–98; BMI 25.7; BMI 29.2
--- NOTE | 2023-03-28 01:43 | XRR_ITS ---
PROCEDURE INFORMATION: Exam: XR Chest Exam date and time: 03/28/2023 1:54 AM Age: 78 years old Clinical indication: Shortness of breath; Prior surgery; Surgery date: 6+ months; Surgery type: Coronary stent. Aaa repair. Breast. Patient HX: C/O SOB. History of copd. ; Additional info: SOA TECHNIQUE: Imaging protocol: Radiologic exam of the chest. Views: 1 view. COMPARISON: CT angio chest PE protcl [id number] 04/22/2021 6:41 PM FINDINGS: Lungs: Unremarkable. No consolidation. Pleural spaces: Unremarkable. No pleural effusion. No pneumothorax. Heart/Mediastinum: Mild cardiac enlargement. Bones/joints: Unremarkable. XR/XR chest 1V [id number] IMPRESSION: Negative for acute chest pathology.
--- NOTE | 2023-03-28 01:49 | ECG_ITS ---
[facility] Test Date: 2023-03-28 Pat Name: Bridgette Malik Department: Room: Gender: Female Tem[place] Head: : 1945 Requested By: Ayana Hurst Order Number: [id number] Sanjay MD: Carter Wallis M.D. 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 [id number]
[2023-03-28 02:01] LABS: Basophils # 0.1 10^3/uL (0.0-0.1); Basophils % 0.5 %; Eosinophils # 0.1 10^3/uL (0.0-0.8); Eosinophils % 0.6 %; Hematocrit 31.3 % (36-47); Lymphocytes # 1.4 10^3/uL (0.8-4.8); Mean Corpuscular HGB Conc 29.7 g/dL (30-55); Mean Corpuscular Hemoglobin 28.8 pg (27-33); Mean Corpuscular Volume 96.9 fl (85-98); Mean Platelet Volume 10.4 fL (7.4-10.4); Monocytes # 0.7 10^3/uL (0.2-0.9); Monocytes % 6.6 %; Neutrophils # 8.74 10^3/uL (1.8-7.7); Neutrophils % 78.8 %; Nucleated Red Blood Cells % 0 %; Platelet Count 191 10^3/cmm (157-399); Red Blood Count 3.23 10^6/uL (3.85-5.65); Red Cell Distribution Width 13.8 % (12.1-15.1); White Blood Count 11.08 10^3/uL (3.29-11.43)
[2023-03-28] MEDS: ipratropium-albuterol 3 mL Neb INHALATION ×4 (02:16→19:56)
[2023-03-28 02:19] LABS: Lactic Sepsis W/Reflex 0.8 mmol/L (0.5-2.2)
[2023-03-28 02:26] LABS: NT Pro B Type Natriuretic Pept 2204 pg/mL (0-450); Procalcitonin 0.11 ng/mL (0-0.5)
[2023-03-28 02:27] LABS: SARS Covid-2 Antigen negative (Negative)
[2023-03-28 02:31] LABS: Arterial Blood Gas Hematocrit 28.4 % (37-47); Base Excess ABG 2.5 mmol/L (-2.0-2.0); Blood Gas Sample Site Brachial, right; Blood Gas Sample Type Arterial; HCO3 ABG 33.2 mmol/L (22-26); Oxygen Device NC
[2023-03-28 02:32] LABS: ABG PH Result 7.14 (7.35-7.45)
[2023-03-28 02:32] LABS: Influenza A by IFA negative (Negative); Influenza B by IFA negative (Negative)
[2023-03-28 02:37] LABS: Alanine Aminotransferase 12 U/L (0-33); Alkaline Phosphatase 56 U/L (35-105); Aspartate Amino Transferase 20 U/L (0-32); Blood Urea Nitrogen 52 mg/dL (8-23); Calcium 9.3 mg/dL (8.5-10.5); Carbon Dioxide 31 mmol/L (22-29); Chloride 98 mmol/L (98-107); Globulin 2.6 g/dL (1.3-4.6); Glucose 115 mg/dL (65-115); Osmolality Calculated 295 mOsm/kg (285-295); Sodium 135 mmol/L (136-145); Total Bilirubin 0.2 mg/dL (0.15-1.2); Total Protein 6.6 g/dL (6.6-8.7)
[2023-03-28 02:39] LABS: Anion Gap 12.9 (5-19)
[2023-03-28 02:41] LABS: Potassium 6.9 mmol/L (3.5-5.1)
[2023-03-28 02:45] LABS: Add Urine Microscopic? YES; Bilirubin Urine 1+ (Negative); Blood Urine Neg (Negative); Glucose Urine UA Norm (Normal); Ketones Urine 1+ (Negative); Leukocyte Esterase Urine Negative (Negative); Nitrate Urine Negative (Negative); Protein Urine Trace (Negative); Urine Appearance Hazy (CLEAR); Urine Color Yellow (Yellow); Urobilinogen Urine Norm (Negative); pH Urine 5 (5-7)
[2023-03-28 02:46] LABS: Bacteria Urine 1+ /hpf; Hyaline Casts Urine 0-4 /lpf; Mucus Urine TRACE /hpf; RBC Urine 0-4 /hpf (0-2); Squamous Epithelial Cell Urine 0-4 /hpf (0-5); WBC Urine 0-4 /hpf (0-5)
--- NOTE | 2023-03-28 03:14 | ED_ITS ---
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 She presents with progressive shortness of breath over the last 2 to 3 days. She has had a cough. She has been increasingly weak. She is evidently had a temperature. Shortness of breath this is despite use of albuterol at home. Associated symptoms: Reports fever(s); Deny chest pain or vomiting Review of Systems 2 Const: Reports: fever(s) Card: Denies: chest pain Resp: Reports: dyspnea and non-productive cough GI: Denies: vomiting PFSH ED 2 PFSH: Medical History Panic attacks Skin lesion Single kidney PAD (peripheral artery disease) Aneurysm of aorta COPD (chronic obstructive pulmonary disease) [place] (myocardial infarction) HTN (hypertension) Acute on chronic combined systolic (congestive) and diastolic (congestive) heart failure ASHD (arteriosclerotic heart disease) Ischemic cardiomyopathy Mitral regurgitation Sleep apnea CKD (chronic kidney disease) Dyslipidemia Bilateral carotid artery occlusion Anemia, deficiency Bilateral carotid bruits Acquired hallux rigidus of left foot Vasculopathy Non-functioning kidney Neuropathic pain of left lower extremity GERD (gastroesophageal reflux disease) 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 coli infection History of stent insertion of renal artery X 3 LEFT KIDNEY Surgical History Presence of stent in coronary artery History of hysterectomy History of AAA (abdominal aortic aneurysm) repair 06/2015 S/P amputation H/O breast surgery H/O facial fracture repair H/O cataract extraction Family History Father CAD (coronary artery disease) Social History Smoking and tobacco/nicotine status: current every day tobacco/nicotine user cigarettes Packs smoked per day: 0.5 (PPD) Quit status (tobacco/nicotine): not considering quitting Second hand smoke exposure: Yes Alcohol intake: current Alcohol intake frequency: holidays/special occasions only Substance/Drug Use: never Physical Exam 2 Const: GENERAL APPEARANCE: cooperative, lethargic, ill appearing and frail appearing ORIENTATION/CONSCIOUSNESS: Yes lethargic HENMT: COMMON NORMALS: normocephalic, atraumatic and Normal external nose present HEAD & SCALP: normocephalic and atraumatic FACE & SINUS: normal facial exam and face symmetric NOSE: Normal external nose present Eye: COMMON NORMALS: Equal, round and reactive pupils present and EOMs intact bilaterally PUPIL: Yes Equal, round and reactive pupils present Neck/C-Spine: GENERAL: Yes trachea midline Chest: CHEST: Yes Symmetrical chest wall rise Resp: COMMON NORMALS: clear to auscultation bilaterally EFFORT & INSPECTION: Yes labored and Yes retractions AUSCULTATION: clear to auscultation bilaterally and diminished lung sounds Cardio: COMMON NORMALS: regular rate and regular rhythm RATE: regular rate RHYTHM: regular rhythm GI: COMMON NORMALS: Normal to inspection, nondistended, normoactive bowel sounds present Extremity: OTHER: Chronic stasis dermatitis to right lower extremity. Left lower extremity has been amputated. Minimal to no cellulitis on the right. 1+ edema present. Neuro: KALI COMA SCALE: document GCS findings Kali coma scale eye opening: To sound [place] coma scale motor response: Obey commands S ENSORIUM/ORIENTATION: Yes lethargic Course 2 Vital Signs: Vital signs: Vital Signs Temperature 98.3 F 03/28/23 01:39 Pulse Rate 57 L 03/28/23 04:59 Respiratory Rate 17 03/28/23 04:41 Blood Pressure 117/46 03/28/23 04:41 Pulse Oximetry 96 03/28/23 04:59 Oxygen Delivery Me thod BiPAP 03/28/23 04:41 Oxygen Flow Rate 35 03/28/23 04:41 Fraction of Inspir ed Oxygen 35 03/28/23 04:59 MDM - SOB/Dyspnea Medical Decision Making Patient presents mildly lethargic. She is afebrile here. Heart rates in the 60s. Breathing is somewhat labored. ABG showed a pH of 7.14 with a pCO2 98. She is placed on BiPAP immediately. Repeat blood gases pending. The patient's potassium is 6.9, creatinine is 1.9 which is above her baseline. She is given an bicarbonate, fluid, Lasix, and calcium gluconate for the high potassium. Callahan catheter is placed. Chest x-ray is negative. Urinalysis is negative. BNP is slightly elevated at 2000. She will be admitted for hypercapnic respiratory failure. Hospitalist is seeing the patient. Repeat blood gas shows improvement in pH and pCO2. As she is improving, and mentation is improving as well, we will keep her on BiPAP for now. She will go to the floor. Lab Data 03/28/23 01:55 03/28/23 01:55 Labs/Radiology: Radiology Impressions Chest X-Ray 03/28/23 01:43 IMPRESSION: Negative for acute chest pathology. Laboratory Results WBC 11.08 10^3/uL (3.29-11.43) 03/28/23 01:55 RBC 3.23 10^6/uL (3.85-5.65) L 03/28/23 01:55 Hgb 9.30 g/dL (11.27-16.99) L 03/28/23 01:55 Hct 31.3 % (36-47) L 03/28/23 01:55 MCV 96.9 fl (85-98) 03/28/23 01:55 MCH 28.8 pg (27-33) 03/28/23 01:55 MCHC 29.7 g/dL (30-55) L 03/28/23 01:55 RDW 13.8 % (12.1-15.1) 03/28/23 01:55 Plt Count 191 10^3/cmm (157-399) 03/28/23 01:55 MPV 10.4 fL (7.4-10.4) 03/28/23 01:55 Neut % (Auto) 78.8 % 03/28/23 01:55 Lymph % (Auto) 13.0 % 03/28/23 01:55 Sutter % (Auto) 6.6 % 03/28/23 01:55 Eos % (Auto) 0.6 % 03/28/23 01:55 Baso % (Auto) 0.5 % 03/28/23 01:55 Neut # (Auto) 8.74 10^3/uL (1.8-7.7) H 03/28/23 01:55 Lymph # (Auto) 1.4 10^3/uL (0.8-4.8) 03/28/23 01:55 Sutter # (Auto) 0.7 10^3/uL (0.2-0.9) 03/28/23 01:55 Eos # (Auto) 0.1 10^3/uL (0.0-0.8) 03/28/23 01:55 Baso # (Auto) 0.1 10^3/uL (0.0-0.1) 03/28/23 01:55 Nucleated RBC % (auto) 0 % 03/28/23 01:55 Nucleated RBCs # 0.0 /100WBC 03/28/23 01:55 Specimen Type Arterial 03/28/23 04:52 Sample Site Brachial, right 03/28/23 04:52 ABG pH 7.25 (7.35-7.45) L 03/28/23 04:52 ABG pCO2 73.1 mmHg (35-45) H* 03/28/23 04:52 ABG pO2 80.0 mmHg (80.0-100.0) 03/28/23 04:52 ABG PO2/FiO2 Ratio 0 03/28/23 04:52 ABG HCO3 31.9 mmol/L (22-26) H 03/28/23 04:52 ABG Base Excess 3.6 mmol/L (-2.0-2.0) H 03/28/23 04:52 Jean Test N/a 03/28/23 04:52 Hematocrit 26.9 % (37-47) L 03/28/23 04:52 O2 Delivery Device Bipap 03/28/23 04:52 O2 Liters/Min 4.0 % 03/28/23 02:17 FiO2 35.0 % 03/28/23 04:52 PEEP 8.0 cmH20 03/28/23 04:52 Jig Maker ID [email or web address] 03/28/23 04:52 Sodium 135 mmol/L (136-145) L 03/28/23 01:55 Potassium 6.9 mmol/L (3.5-5.1) H* 03/28/23 01:55 Chloride 98 mmol/L (98-107) 03/28/23 01:55 Carbon Dioxide 31 mmol/L (22-29) H 03/28/23 01:55 Anion Gap 12.9 (5-19) 03/28/23 01:55 BUN 52 mg/dL (8-23) H 03/28/23 01:55 Creatinine 1.9 mg/dL (0.5-0.9) H 03/28/23 01:55 GFR Calculation Not Reportable 03/28/23 01:55 Glucose 115 mg/dL (65-115) 03/28/23 01:55 Calculated Osmolality 295 mOsm/kg (285-295) 03/28/23 01:55 Lactic Acid 0.8 mmol/L (0.5-2.2) 03/28/23 01:55 Calcium 9.3 mg/dL (8.5-10.5) 03/28/23 01:55 Total Bilirubin 0.2 mg/dL (0.15-1.2) 03/28/23 01:55 AST 20 U/L (0-32) 03/28/23 01:55 ALT 12 U/L (0-33) 03/28/23 01:55 Alkaline Phosphatase 56 U/L (35-105) 03/28/23 01:55 NT-Pro-B Natriuret Pep 2204 pg/mL (0-450) H 03/28/23 01:55 Total Protein 6.6 g/dL (6.6-8.7) 03/28/23 01:55 Albumin 4.0 g/dL (3.5-5.2) 03/28/23 01:55 Globulin 2.6 g/dL (1.3-4.6) 03/28/23 01:55 Procalcitonin 0.11 ng/mL (0-0.5) 03/28/23 01:55 Urine Color Yellow (Yellow) 03/28/23 02:11 Urine Appearance Hazy (CLEAR) A 03/28/23 02:11 Urine pH 5 (5-7) 03/28/23 02:11 Ur Specific St[place] 1.020 (1.005-1.030) 03/28/23 02:11 Urine Protein Trace (Negative) 03/28/23 02:11 Urine Glucose (UA) Norm (Normal) 03/28/23 02:11 Urine Ketones 1+ (Negative) H 03/28/23 02:11 Urine Blood Neg (Negative) 03/28/23 02:11 Urine Nitrate Negative (Negative) 03/28/23 02:11 Urine Bilirubin 1+ (Negative) H 03/28/23 02:11 Urine Urobilinogen Norm mg/dL (Negative) 03/28/23 02:11 Ur Leukocyte Esterase Negative (Negative) 03/28/23 02:11 Urine RBC 0-4 /hpf (0-2) H 03/28/23 02:11 Urine WBC 0-4 /hpf (0-5) H 03/28/23 02:11 Ur Squamous Epith Cells 0-4 /hpf (0-5) H 03/28/23 02:11 Amorphous Sediment Not Reportable 03/28/23 02:11 Urine Bacteria 1+ /hpf (NONE) H 03/28/23 02:11 Hyaline Casts 0-4 /lpf H 03/28/23 02:11 Urine Mucus Trace /hpf 03/28/23 02:11 Influenza Type A Ag negative (Negative) 03/28/23 02:02 Influenza Type B Ag negative (Negative) 03/28/23 02:02 SARS-CoV-2 Ag (Rapid) negative (Negative) 03/28/23 02:02 All radiology interpretation(s) finalized by discharge Critical Care Time 2 Critical Care Time: Critical Care Time: Yes Total Critical Care Time: 35 Attestation: This case had a high probability of a clinically significant, sudden, or life threatening deterioration of this patient's condition which required my full and direct attention, intervention and personal management. Time is independent of any procedures performed. 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
[2023-03-28] MEDS: sodium bicarbonate 8.4% 1 mEq/mL 50mL Syr 50 MEQ IVP (03:18)
[2023-03-28] MEDS: calcium gluconate 0.1 gm/mL 10% SDV 10mL 1 GM IVP (03:23)
[2023-03-28] MEDS: sodium chloride 0.9% 1,000 ML 999 ML IV (03:27)
[2023-03-28] MEDS: methylPREDNISolone sod succ 125 mg/2 mL INJ IVP (03:29)
[2023-03-28] MEDS: albuterol 2.5 mg/3 mL Neb INHALATION (03:35)
[2023-03-28] MEDS: FUROsemide 10 mg/mL SDV 4mL 40 MG IVP ×2 (04:06→20:16)
[2023-03-28 05:02] LABS: ABG PCO2 73.1 mmHg (35-45); ABG PH Result 7.25 (7.35-7.45); Arterial Blood Gas Hematocrit 26.9 % (37-47); Base Excess ABG 3.6 mmol/L (-2.0-2.0); Blood Gas Sample Site Brachial, right; Blood Gas Sample Type Arterial; HCO3 ABG 31.9 mmol/L (22-26); Oxygen Device BIPAP; PO2 FiO2 Ratio Arterial Blood 0
--- NOTE | 2023-03-28 05:39 | P.HP_ITS ---
Providers/Chief Complaint 2 Admitting Physician: radha Green MD Primary Care Provider: Jhoaan Gross DO Chief Complaint: SOB History of Present Illness Bridgette Malik is a 78 year old female with a past medical history of COPD, peripheral artery disease, single functional kidney, status post left leg amputation several years ago, presenting today via EMS due to lethargy and poor responsiveness at home. Patient's daughter provides most of the history as patient herself is on BiPAP currently. States that patient has been feeling poorly for about the last 2 weeks or so. She has had cellulitis involving the right lower extremity for which she was initially on cephalexin. When symptoms did not improve she started Bactrim recently. With the Bactrim the cellulitis appears to be now resolved. She did have a small injury over her right posterior calf from her wheelchair which currently appears to be healing. She has had a mild cough, some family members have had URI type symptoms however denies any fever chest pain or significant expectoration. Today her family noted her to be more sleepy and lethargic than at baseline. It was difficult to awaken her. On arrival into the emergency room she was found to have evidence of hypoxic hypercapnic respiratory failure. Patient typically wears supplemental O2 at home at all times and had been increasing it during the day due to feeling short of breath. She has also been lying down in his recliner, typically wears a CPAP at home. She tells me that she has been compliant with her CPAP on most days. ROS negative for any abdominal pain nausea vomiting diarrhea chills or fever. She has currently been placed on BiPAP in the emergency room. Compared to arrival, her daughter reports that her mental status appears to be improving. At the time of my assessment she is able to answer questions with regards to her name, correct date of , her whereabouts. Review of Systems 2 General: Reports: ROS unobtainable due to medical condition Medications/Allergies Home Medications Medication Instructions Recorded Confirmed Last Taken Type NEBULIZER TUBING #1 ea 07/07/19 03/22/23 Unknown Rx fluticasone propionate 50 2 spray intranasal DAILY PRN 04/23/21 03/22/23 Unknown History mcg/actuation nasal Allergy Symptoms spray,suspension (Flonase Allergy Relief) multivitamin 1 tab PO DAILY 04/23/21 03/22/23 Unknown History alprazolam 0.25 mg tablet (Xanax) 0.25 mg PO DAILY PRN anxiety #30 09/26/21 03/22/23 Unknown Rx tabs lidocaine 5 % topical ointment 1 applic topical TID PRN pain #30 10/23/21 03/22/23 Unknown Rx grams mupirocin 2 % topical ointment 1 applic topical BID #22 grams 01/09/22 03/22/23 Unknown Rx umeclidinium 62.5 mcg/actuation See Rx Instructions .Route 08/13/22 03/22/23 Unknown Rx blister powder for inhalation .COMPLEX #30 ea (Incruse Ellipta) amlodipine 5 mg tablet 5 mg PO DAILY #90 tabs 09/28/22 03/22/23 Unknown Rx montelukast 10 mg tablet See Rx Instructions .Route 10/09/22 03/22/23 Unknown Rx .COMPLEX #90 tabs atorvastatin 40 mg tablet See Rx Instructions .Route 10/20/22 03/22/23 Unknown Rx .COMPLEX #90 tabs hydrochlorothiazide 25 mg tablet See Rx Instructions .Route 10/20/22 03/22/23 Unknown Rx .COMPLEX #90 tabs albuterol sulfate 90 mcg/actuation See Rx Instructions .Route 10/30/22 03/22/23 Unknown Rx aerosol inhaler (Ventolin HFA) .COMPLEX #8.5 grams nitroglycerin 2.5 mg See Rx Instructions .Route 11/02/22 03/22/23 Unknown Rx capsule,extended release .COMPLEX #180 caps (Nitro-Time) clopidogrel 75 mg tablet (Plavix) 75 mg PO QAM #90 tabs 11/25/22 03/22/23 Unknown Rx isosorbide mononitrate 30 mg 30 mg PO QAM #90 tabs 11/25/22 03/22/23 Unknown Rx tablet,extended release 24 hr lisinopril 10 mg tablet See Rx Instructions .Route 02/01/23 03/22/23 Unknown Rx .COMPLEX #90 tabs albuterol sulfate 2.5 mg/3 mL See Rx Instructions .Route 02/22/23 03/22/23 Unknown Rx (0.083 %) solution for nebulization .COMPLEX #180 mL budesonide-formoterol HFA 160 See Rx Instructions .Route 02/22/23 03/22/23 Unknown Rx mcg-4.5 mcg/actuation aerosol .COMPLEX #10.2 grams inhaler (Symbicort) hydralazine 25 mg tablet See Rx Instructions .Route 02/22/23 03/22/23 Unknown Rx .COMPLEX #270 tabs metoprolol tartrate 25 mg tablet See Rx Instructions .Route 02/22/23 03/22/23 Unknown Rx .COMPLEX #180 tabs clotrimazole 1 % topical cream 1 applic topical BID 4 weeks #45 03/10/23 03/22/23 Unknown Rx grams sulfamethoxazole 800 1 tab PO BID 10 days #20 tabs 03/22/23 03/22/23 Unknown Rx mg-trimethoprim 160 mg tablet (Bactrim DS) Allergies Allergy/AdvReac Type Severity Reaction Status Date / Time No Known Allergies Allergy Verified 03/28/23 01:54 PFSH Acute 2 PFSH: Medical History Panic attacks Skin lesion Single kidney PAD (peripheral artery disease) Aneurysm of aorta COPD (chronic obstructive pulmonary disease) [place] (myocardial infarction) HTN (hypertension) Acute on chronic combined systolic (congestive) and diastolic (congestive) heart failure ASHD (arteriosclerotic heart disease) Ischemic cardiomyopathy Mitral regurgitation Sleep apnea CKD (chronic kidney disease) Dyslipidemia Bilateral carotid artery occlusion Anemia, deficiency Bilateral carotid bruits Acquired hallux rigidus of left foot Vasculopathy Non-functioning kidney Neuropathic pain of left lower extremity GERD (gastroesophageal reflux disease) 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 coli infection History of stent insertion of renal artery X 3 LEFT KIDNEY Surgical History Presence of stent in coronary artery History of hysterectomy History of AAA (abdominal aortic aneurysm) repair 06/2015 S/P amputation H/O breast surgery H/O facial fracture repair H/O cataract extraction Family History Father CAD (coronary artery disease) Social History Smoking and tobacco/nicotine status: current every day tobacco/nicotine user cigarettes Packs smoked per day: 0.5 (PPD) Quit status (tobacco/nicotine): not considering quitting Second hand smoke exposure: Yes Alcohol intake: current Alcohol intake frequency: holidays/special occasions only Substance/Drug Use: never Vitals/I&O/Wt Last Vital Signs Temp 98.3 F 03/28/23 01:39 Pulse 57 L 03/28/23 04:59 Resp 17 03/28/23 04:41 BP 117/46 03/28/23 04:41 Pulse Ox 96 03/28/23 04:59 O2 Del Method BiPAP 03/28/23 04:41 O2 Flow Rate 35 03/28/23 04:41 FiO2 35 03/28/23 04:59 Weight last 48 hrs Weight 65.771 kg Physical Exam 2 Narrative: General: No acute distress, AO x3 HEENT: PERRLA, pupils bilaterally equal and reactive, pallors not present Chest: Normal vesicular breath sounds, no added sounds, equal good air entry bilaterally CVS: S1-S2 regular, no murmurs, no tachycardia, no gallops, no rubs Abdomen: Soft, nontender, no organomegaly, bowel sounds present Neuro: No focal deficits, no facial deformity, AO x3, power 5/5 in all limbs Extremities: Right lower extremity with changes of stasis dermatitis. No concerning changes of cellulitis currently. Urinary Catheter Management: Callahan: Cath Placed During This Visit: yes Urinary Catheter Date of Insertion: 03/28/23 Urinary Catheter Time of Insertion: 03:48 Data 03/28/23 01:55 03/28/23 01:55 ABG Interpretation 1: 03/28/23 03/28/23 02:17 04:52 ABG pH 7.14 L* 7.25 L ABG pCO2 98.0 H* 73.1 H* ABG pO2 272.0 H 80.0 ABG HCO3 33.2 H 31.9 H ABG Base Excess 2.5 H 3.6 H My Interpretation: Radiology Impressions Chest X-Ray 03/28/23 01:43 IMPRESSION: Negative for acute chest pathology. Laboratory Results WBC 11.08 10^3/uL (3.29-11.43) 03/28/23 01:55 RBC 3.23 10^6/uL (3.85-5.65) L 03/28/23 01:55 Hgb 9.30 g/dL (11.27-16.99) L 03/28/23 01:55 Hct 31.3 % (36-47) L 03/28/23 01:55 MCV 96.9 fl (85-98) 03/28/23 01:55 MCH 28.8 pg (27-33) 03/28/23 01:55 MCHC 29.7 g/dL (30-55) L 03/28/23 01:55 RDW 13.8 % (12.1-15.1) 03/28/23 01:55 Plt Count 191 10^3/cmm (157-399) 03/28/23 01:55 MPV 10.4 fL (7.4-10.4) 03/28/23 01:55 Neut % (Auto) 78.8 % 03/28/23 01:55 Lymph % (Auto) 13.0 % 03/28/23 01:55 Milam % (Auto) 6.6 % 03/28/23 01:55 Eos % (Auto) 0.6 % 03/28/23 01:55 Baso % (Auto) 0.5 % 03/28/23 01:55 Neut # (Auto) 8.74 10^3/uL (1.8-7.7) H 03/28/23 01:55 Lymph # (Auto) 1.4 10^3/uL (0.8-4.8) 03/28/23 01:55 Milam # (Auto) 0.7 10^3/uL (0.2-0.9) 03/28/23 01:55 Eos # (Auto) 0.1 10^3/uL (0.0-0.8) 03/28/23 01:55 Baso # (Auto) 0.1 10^3/uL (0.0-0.1) 03/28/23 01:55 Nucleated RBC % (auto) 0 % 03/28/23 01:55 Nucleated RBCs # 0.0 /100WBC 03/28/23 01:55 Specimen Type Arterial 03/28/23 04:52 Sample Site Brachial, right 03/28/23 04:52 ABG pH 7.25 (7.35-7.45) L 03/28/23 04:52 ABG pCO2 73.1 mmHg (35-45) H* 03/28/23 04:52 ABG pO2 80.0 mmHg (80.0-100.0) 03/28/23 04:52 ABG PO2/FiO2 Ratio 0 03/28/23 04:52 ABG HCO3 31.9 mmol/L (22-26) H 03/28/23 04:52 ABG Base Excess 3.6 mmol/L (-2.0-2.0) H 03/28/23 04:52 Jean Test N/a 03/28/23 04:52 Hematocrit 26.9 % (37-47) L 03/28/23 04:52 O2 Delivery Device Bipap 03/28/23 04:52 O2 Liters/Min 4.0 % 03/28/23 02:17 FiO2 35.0 % 03/28/23 04:52 PEEP 8.0 cmH20 03/28/23 04:52 Infantry Assaultman ID [email or web address] 03/28/23 04:52 Sodium 135 mmol/L (136-145) L 03/28/23 01:55 Potassium 6.9 mmol/L (3.5-5.1) H* 03/28/23 01:55 Chloride 98 mmol/L (98-107) 03/28/23 01:55 Carbon Dioxide 31 mmol/L (22-29) H 03/28/23 01:55 Anion Gap 12.9 (5-19) 03/28/23 01:55 BUN 52 mg/dL (8-23) H 03/28/23 01:55 Creatinine 1.9 mg/dL (0.5-0.9) H 03/28/23 01:55 GFR Calculation Not Reportable 03/28/23 01:55 Glucose 115 mg/dL (65-115) 03/28/23 01:55 Calculated Osmolality 295 mOsm/kg (285-295) 03/28/23 01:55 Lactic Acid 0.8 mmol/L (0.5-2.2) 03/28/23 01:55 Calcium 9.3 mg/dL (8.5-10.5) 03/28/23 01:55 Total Bilirubin 0.2 mg/dL (0.15-1.2) 03/28/23 01:55 AST 20 U/L (0-32) 03/28/23 01:55 ALT 12 U/L (0-33) 03/28/23 01:55 Alkaline Phosphatase 56 U/L (35-105) 03/28/23 01:55 NT-Pro-B Natriuret Pep 2204 pg/mL (0-450) H 03/28/23 01:55 Total Protein 6.6 g/dL (6.6-8.7) 03/28/23 01:55 Albumin 4.0 g/dL (3.5-5.2) 03/28/23 01:55 Globulin 2.6 g/dL (1.3-4.6) 03/28/23 01:55 Procalcitonin 0.11 ng/mL (0-0.5) 03/28/23 01:55 Urine Color Yellow (Yellow) 03/28/23 02:11 Urine Appearance Hazy (CLEAR) A 03/28/23 02:11 Urine pH 5 (5-7) 03/28/23 02:11 Ur Specific [place]win 1.020 (1.005-1.030) 03/28/23 02:11 Urine Protein Trace (Negative) 03/28/23 02:11 Urine Glucose (UA) Norm (Normal) 03/28/23 02:11 Urine Ketones 1+ (Negative) H 03/28/23 02:11 Urine Blood Neg (Negative) 03/28/23 02:11 Urine Nitrate Negative (Negative) 03/28/23 02:11 Urine Bilirubin 1+ (Negative) H 03/28/23 02:11 Urine Urobilinogen Norm mg/dL (Negative) 03/28/23 02:11 Ur Leukocyte Esterase Negative (Negative) 03/28/23 02:11 Urine RBC 0-4 /hpf (0-2) H 03/28/23 02:11 Urine WBC 0-4 /hpf (0-5) H 03/28/23 02:11 Ur Squamous Epith Cells 0-4 /hpf (0-5) H 03/28/23 02:11 Amorphous Sediment Not Reportable 03/28/23 02:11 Urine Bacteria 1+ /hpf (NONE) H 03/28/23 02:11 Hyaline Casts 0-4 /lpf H 03/28/23 02:11 Urine Mucus Trace /hpf 03/28/23 02:11 Influenza Type A Ag negative (Negative) 03/28/23 02:02 Influenza Type B Ag negative (Negative) 03/28/23 02:02 SARS-CoV-2 Ag (Rapid) negative (Negative) 03/28/23 02:02 A&P Assessment and plan (1) COPD exacerbation: (2) Acute on chronic respiratory failure with hypoxia and hypercapnia: (3) Hyperkalemia: (4) KAYLI (acute kidney injury): Plan 78-year-old lady with past medical history as outlined above presenting to the emergency room today with increasing lethargy found to have evidence of hypoxic hypercapnic respiratory failure, acute on chronic. This is most likely related to her COPD exacerbation. Patient reports compliance with her CPAP at home recently. Negative influenza and COVID antigens. Chest x-ray without consolidation. Start Solu-Medrol 40 mg IV every 8 hours duoneb q6h, budesonide q12h Continue BiPAP ventilation for now with serial ABG checks until pH normalizes. Hyperkalemia likely related to a combination of KAYLI, recent Bactrim use, home use of lisinopril. Hold any further doses of Bactrim or lisinopril. She has received calcium gluconate, insulin dextrose, albuterol inhalation and 40 mg IV Lasix and bicarb in the emergency room. Stat CMP ordered to assess for repeat potassium. EKG notes sinus bradycardia. Hold metoprolol due to bradycardia. Acute kidney injury, patient has baseline single functional kidney related to complications from AAA repair. Hold all nephrotoxic medications. Monitor serial creatinine. Her right leg cellulitis appears to be resolved at this point. Will hold off on any further doses of antibiotics for now with close monitoring of her leg. There are changes consistent with stasis dermatitis currently. DVT prophylaxis: Lovenox Full code Attestations 2 Medical Necessity Statement*: Greater than 2 midnight stay is anticipated at this point in time. Critical Care Time: The high probability of a clinically significant, sudden or life threatening deterioration of the patient's [respiratory, renal] system(s) required my full and direct attention, intervention and personal management. The critical care time is as shown. This time is in addition to time spent performing any reported procedures but includes the following: [x] Data and vital sign review and interpretation [x] Patient assessment, examination and intervention [x] Documentation [x] Medication orders and management Critical Care Time (min): 50 Coding Level of Care Code Acute Code for [facility] Fwd Diagnoses COPD exacerbation J44.1 Acute on chronic respiratory failure with hypoxia and hypercapnia J96.21; J96.22 Hyperkalemia E87.5 KAYLI (acute kidney injury) N17.9
[2023-03-28 06:53] LABS: Alanine Aminotransferase 12 U/L (0-33); Albumin Level 3.9 g/dL (3.5-5.2); Alkaline Phosphatase 55 U/L (35-105); Anion Gap 13.7 (5-19); Aspartate Amino Transferase 17 U/L (0-32); Blood Urea Nitrogen 54 mg/dL (8-23); Calcium 9.4 mg/dL (8.5-10.5); Carbon Dioxide 30 mmol/L (22-29); Chloride 100 mmol/L (98-107); Globulin 2.6 g/dL (1.3-4.6); Glucose 121 mg/dL (65-115); Osmolality Calculated 300 mOsm/kg (285-295); Sodium 137 mmol/L (136-145); Total Bilirubin 0.2 mg/dL (0.15-1.2); Total Protein 6.5 g/dL (6.6-8.7)
[2023-03-28 07:15] LABS: Potassium 6.7 mmol/L (3.5-5.1)
[2023-03-28] MEDS: budesonide 0.5 mg/2 mL Neb INHALATION ×2 (08:20→19:56)
[2023-03-28] MEDS: enoxaparin 40 mg/0.4 mL Syringe SUBCUT (08:33)
[2023-03-28] MEDS: hyDRALAzine 25 mg Tablet PO (08:33)
[2023-03-28] MEDS: atorvastatin 40 mg Tablet PO (08:33)
[2023-03-28] MEDS: pantoprazole DR 40 mg Tablet PO (08:34)
[2023-03-28] MEDS: amlodipine 5 mg Tablet PO (08:34)
[2023-03-28] MEDS: clopidogrel 75 mg Tablet PO (08:34)
[2023-03-28] MEDS: isosorbide mononitrate ER 30 mg Tablet PO (08:34)
[2023-03-28 08:36] LABS: ABG PCO2 72.2 mmHg (35-45); ABG PH Result 7.25 (7.35-7.45); Arterial Blood Gas Hematocrit 28.4 % (37-47); Base Excess ABG 3.3 mmol/L (-2.0-2.0); Blood Gas Allen Test Pos; Blood Gas Operator Identificat MONRO; Blood Gas Sample Site Brachial, right; Blood Gas Sample Type Arterial; Blood Gas Tidal Volume 0.45; HCO3 ABG 31.7 mmol/L (22-26); Oxygen Device BIPAP; PO2 FiO2 Ratio Arterial Blood 0
--- NOTE | 2023-03-28 08:38 | USR_ITS ---
PROCEDURE INFORMATION: Exam: US Retroperitoneal; Complete; Kidneys and Bladder Exam date and time: 03/28/2023 11:01 AM Age: 78 years old Clinical indication: Condition or disease; Kidney or ureter condition; Other: Manoj TECHNIQUE: Imaging protocol: Real-time ultrasound of the retroperitoneum with image documentation. Complete exam focused on the kidneys and bladder. COMPARISON: US renal BI* [id number] 04/23/2021 8:52 AM FINDINGS: Right kidney: The right kidney is unremarkable. Cortical thickness and echotexture is normal. There is no hydronephrosis. No visible stones. The right kidney measures 11.3 x 4.7 x 4.6 cm. Left kidney: The left kidney was sought but not visualized. Spleen: The spleen is unremarkable. Aorta: The aorta is obscured by overlying bowel gas. Urinary bladder: The bladder is decompressed around a Callahan catheter bulb. US/US renal BI* [id number] IMPRESSION: 1. Unremarkable right kidney. 2. Left kidney is not visible.
[2023-03-28] MEDS: calcium gluconate 0.9% NaCL 1 GM/50 ML PREMIX IV (09:03)
[2023-03-28] MEDS: azithromycin 500 MG in sodium chloride 0.9% 250 ML 250 MG IV (09:03)
[2023-03-28] MEDS: cefTRIAXone 1,000 MG in sodium chloride 0.9% (plus) 50 ML 100 MG IV (09:03)
[2023-03-28] MEDS: dextrose 50% syringe 50 mL IVP (09:05)
[2023-03-28] MEDS: insulin regular-human 10 UNIT in SYRINGE 1 EACH IVP (09:05)
[2023-03-28] MEDS: sodium polystyrene sulfonate 15 gm/60 mL Btl PO (09:05)
[2023-03-28] MEDS: methylPREDNISolone sod succ 40 mg/mL INJ IVP ×2 (10:44→18:25)
[2023-03-28] MEDS: FUROsemide 10 mg/mL SDV 10mL 60 MG IVP (10:44)
[2023-03-28] MEDS: sodium polystyrene sulfonate 15 gm/60 mL Btl 30 GM PO (10:46)
--- NOTE | 2023-03-28 11:26 | USR_ITS ---
PROCEDURE INFORMATION: Exam: US Duplex Right Lower Extremity Veins, Limited Exam date and time: 03/28/2023 12:56 PM Age: 78 years old Clinical indication: Screening exam; Additional info: Dvt, patient has had left leg removed. TECHNIQUE: Imaging protocol: Real-time duplex ultrasound of the right extremity with 2-D kaufman scale, color Doppler flow and spectral waveform analysis including responses to compression and other maneuvers (when performed) with image documentation. Limited exam was focused on the right lower extremity veins. COMPARISON: US renal BI* [id number] 03/28/2023 11:01 AM FINDINGS: Right deep veins: Unremarkable. The common femoral, femoral, proximal profunda femoral and popliteal veins are patent without thrombus. Normal Doppler waveforms. Normal compressibility and/or augmentation response. Superficial veins: Unremarkable. Saphenofemoral junction is patent without thrombus. Soft tissues: There is subcutaneous edema in the lower leg. US/[place] [id number] IMPRESSION: No deep venous thrombosis.
--- NOTE | 2023-03-28 11:26 | ECG_ITS ---
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 Measurements Intervals [place] Rate: 84 P: 75 MI: 158 QRS: 61 QRSD: 94 T: 69 QT: 342 QTc: 405 Interpretive Statements SINUS RHYTHM LOW QRS VOLTAGE IN EXTREMITY LEADS [QRS DEFLECTION < 0.5 mV IN LIMB LEADS] POSSIBLE ANTERIOR MYOCARDIAL INFARCTION , OF INDETERMINATE AGE [30 ms Q WAVE IN V3/V4, OR R < 0.2 mV IN V4] Compared to ECG 03/28/2023 01:49:41 Sinus bradycardia no longer present Myocardial infarct finding still present Electronically Signed On 03-29-2023 7:54:54 [employer] by Carter Wallis M.D. [id number]
[2023-03-28] MEDS: acetaminophen 325 mg Tablet 650 MG PO ×2 (11:41→21:10)
[2023-03-28 12:59] LABS: Adenovirus Not Detected (NOT DETECT); Chlamydia Pneumoniae Not Detected (NOT DETECT); Coronavirus 229E,HKU1,NL63,OC4 Not Detected (NOT DETECT); Human Metapneumovirus Not Detected (NOT DETECT); Human Rhinovirus/Enterovirus Not Detected (NOT DETECT); Influenza A Not Detected (NOT DETECT); Influenza A H1 Not Detected (NOT DETECT); Influenza A H1-2009 Not Detected (NOT DETECT); Influenza A H3 Not Detected (NOT DETECT); Influenza B Not Detected (NOT DETECT); Mycoplasma Pneumoniae Not Detected (NOT DETECT); Parainfluenza Virus Type 1 Not Detected (NOT DETECT); Parainfluenza Virus Type 2 Not Detected (NOT DETECT); Parainfluenza Virus Type 3 Not Detected (NOT DETECT); Parainfluenza Virus Type 4 Not Detected (NOT DETECT); Respiratory Syncytial Virus A Not Detected (NOT DETECT); Respiratory Syncytial Virus B Not Detected (NOT DETECT); SARS-COV-2 Not Detected (NOT DETECT)
[2023-03-28 13:07] LABS: D Dimer 3.62 ug/mLFEU (0-0.59)
[2023-03-28 13:15] LABS: Troponin(5th) Baseline 43 ng/L (0-10)
[2023-03-28 13:25] LABS: Blood Urea Nitrogen 57 mg/dL (8-23); Calcium 9.7 mg/dL (8.5-10.5); Carbon Dioxide 29 mmol/L (22-29); Chloride 99 mmol/L (98-107); Glucose 222 mg/dL (65-115); NT Pro B Type Natriuretic Pept 2351 pg/mL (0-450); Osmolality Calculated 313 mOsm/kg (285-295); Sodium 140 mmol/L (136-145)
--- NOTE | 2023-03-28 13:26 | ECG_ITS ---
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 Measurements Intervals [place] Rate: 77 P: 0 CA: 0 QRS: -28 QRSD: 94 T: 87 QT: 345 QTc: 392 Interpretive Statements SUPRAVENTRICULAR RHYTHM POSSIBLE ANTERIOR MYOCARDIAL INFARCTION , PROBABLY OLD [30 ms Q WAVE IN V3/V4, OR R < 0.2 mV IN V4] Compared to ECG 03/28/2023 12:08:18 Supraventricular rhythm now present Sinus rhythm no longer present Myocardial infarct finding still present Electronically Signed On 03-29-2023 8:03:08 CIRCUIT TE[employer] by Carter Wallis M.D. [email or web address] [id number]
--- NOTE | 2023-03-28 13:43 | P.CONIM_ITS ---
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 Per family patient had been feeling poorly for the last 1 to 2 weeks, was treated for right lower extremity cellulitis with cephalexin and Bactrim. Patient was also taking lisinopril at home. Also takes HCTZ. In the emergency department -noted to be hypoxic and was placed on BiPAP. Lab data is significant for hemoglobin of 9.3, sodium 135 creatinine 1.9, has hyperkalemia with a potassium of 6.9. Patient's potassium was medically treated and repeat potassium was 6.7. Review of Systems 2 Narrative: other ros negative Medications/Allergies Home Medications Medication Instructions Recorded Confirmed Last Taken Type NEBULIZER TUBING #1 ea 07/07/19 03/28/23 Unknown Rx fluticasone propionate 50 2 spray intranasal DAILY PRN 04/23/21 03/28/23 Unknown History mcg/actuation nasal Allergy Symptoms spray,suspension (Flonase Allergy Relief) multivitamin 1 tab PO DAILY 04/23/21 03/28/23 03/27/23 History mupirocin 2 % topical ointment 1 applic topical BID #22 grams 01/09/22 03/28/23 03/27/23 Rx amlodipine 5 mg tablet 5 mg PO DAILY #90 tabs 09/28/22 03/28/23 03/27/23 Rx clopidogrel 75 mg tablet (Plavix) 75 mg PO QAM #90 tabs 11/25/22 03/28/23 03/27/23 Rx isosorbide mononitrate 30 mg 30 mg PO QAM #90 tabs 11/25/22 03/28/23 03/27/23 Rx tablet,extended release 24 hr clotrimazole 1 % topical cream 1 applic topical BID 4 weeks #45 03/10/23 03/28/23 Unknown Rx grams sulfamethoxazole 800 1 tab PO BID 10 days #20 tabs 03/22/23 03/28/23 03/27/23 Rx mg-trimethoprim 160 mg tablet (Bactrim DS) acetaminophen 325 mg tablet 650 mg PO QID PRN Pain 03/28/23 03/28/23 03/27/23 History albuterol sulfate 2.5 mg/3 mL 2.5 mg inhalation Q6H PRN 03/28/23 03/28/23 Unknown History (0.083 %) solution for nebulization Shortness Of Breath Or Wheezing albuterol sulfate 90 mcg/actuation 2 puff inhalation Q6H PRN 03/28/23 03/28/23 Unknown History aerosol inhaler (Ventolin HFA) Shortness Of Breath Or Wheezing atorvastatin 40 mg tablet 40 mg PO DAILY 03/28/23 03/28/23 03/27/23 History budesonide-formoterol HFA 160 2 puff inhalation BID 03/28/23 03/28/23 03/27/23 History mcg-4.5 mcg/actuation aerosol inhaler (Symbicort) hydralazine 25 mg tablet 25 mg PO TID 03/28/23 03/28/23 03/27/23 History hydrochlorothiazide 25 mg tablet 25 mg PO DAILY 03/28/23 03/28/23 03/27/23 History lisinopril 10 mg tablet 10 mg PO DAILY 03/28/23 03/28/23 03/27/23 History metoprolol tartrate 25 mg tablet 25 mg PO BID 03/28/23 03/28/23 03/27/23 History montelukast 10 mg tablet 10 mg PO DAILY 03/28/23 03/28/23 03/27/23 History nitroglycerin 2.5 mg 2.5 mg PO BID 03/28/23 03/28/23 03/27/23 History capsule,extended release (Nitro-Time) Allergies Allergy/AdvReac Type Severity Reaction Status Date / Time No Known Allergies Allergy Verified 03/28/23 01:54 Current Medications Generic Name Dose Route Start Last Admin Trade Name Freq PRN Reason Stop Dose Admin Acetaminophen 650 mg 03/28/23 08:07 03/28/23 11:41 Acetaminophen 325 Mg Tablet PO 650 mg Q6H PRN Administration Mild/Mod Pain Or Temp >/= 101 Albuterol/Ipratropium 3 ml 03/28/23 08:07 03/28/23 08:20 Ipratropium-Albuterol 3 Ml Neb INHALATION 3 ml Q6H.RESP CORKY Administration Atorvastatin Calcium 40 mg 03/28/23 09:00 03/28/23 08:33 Atorvastatin 40 Mg Tablet PO 40 mg DAILY CORKY Administration Budesonide 0.5 mg 03/28/23 09:00 03/28/23 08:20 Budesonide 0.5 Mg/2 Ml Neb INHALATION 0.5 mg BID CORKY Administration Clopidogrel Bisulfate 75 mg 03/28/23 08:07 03/28/23 08:34 Clopidogrel 75 Mg Tablet PO 75 mg QAM CORKY Administration Enoxaparin Sodium 40 mg 03/28/23 08:07 03/28/23 08:33 Enoxaparin 40 Mg/0.4 Ml Syringe SUBCUT 40 mg Q24H CORKY Administration Ceftriaxone Sodium 1,000 mg/ 50 mls @ 100 mls/hr 03/28/23 08:45 03/28/23 09:33 Sodium Chloride IV Infused Q24H CORKY Infusion Protocol Azithromycin 500 mg/ Sodium 250 mls @ 250 mls/hr 03/28/23 08:45 03/28/23 10:03 Chloride IV Infused Q24H CORKY Infusion Protocol Methylprednisolone Sodium Succinate 40 mg 03/28/23 11:00 03/28/23 10:44 Methylprednisolone Sod Succ 40 Mg/Ml Inj IVP 40 mg Q8H CORKY Administration Pantoprazole Sodium 40 mg 03/28/23 09:00 03/28/23 08:[address] 40 Mg Tablet PO 40 mg DAILY CORKY Administration PFSH Acute 2 PFSH: Medical History Panic attacks Skin lesion Single kidney PAD (peripheral artery disease) Aneurysm of aorta COPD (chronic obstructive pulmonary disease) Old NC (myocardial infarction) HTN (hypertension) Acute on chronic combined systolic (congestive) and diastolic (congestive) heart failure ASHD (arteriosclerotic heart disease) Ischemic cardiomyopathy Mitral regurgitation Sleep apnea CKD (chronic kidney disease) Dyslipidemia Bilateral carotid artery occlusion Anemia, deficiency Bilateral carotid bruits Acquired hallux rigidus of left foot Vasculopathy Non-functioning kidney Neuropathic pain of left lower extremity GERD (gastroesophageal reflux disease) 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 coli infection History of stent insertion of renal artery X 3 LEFT KIDNEY Surgical History Presence of stent in coronary artery History of hysterectomy History of AAA (abdominal aortic aneurysm) repair 06/2015 S/P amputation H/O breast surgery H/O facial fracture repair H/O cataract extraction Family History Father CAD (coronary artery disease) Social History Smoking and tobacco/nicotine status: current every day tobacco/nicotine user cigarettes Packs smoked per day: 0.5 (PPD) Quit status (tobacco/nicotine): not considering quitting Second hand smoke exposure: Yes Alcohol intake: current Alcohol intake frequency: holidays/special occasions only Substance/Drug Use: never Vitals/I&O/Wt Last Vital Signs Temp 98.3 F 03/28/23 01:39 Pulse 82 03/28/23 13:00 Resp 25 H 03/28/23 13:00 BP 158/110 03/28/23 13:00 Pulse Ox 92 03/28/23 13:00 O2 Del Method BiPAP 03/28/23 09:30 O2 Flow Rate 35 03/28/23 04:41 FiO2 30 03/28/23 10:54 03/27/23 03/28/23 03/28/23 22:59 06:59 14:59 Intake Total 1000 / 1000 350.1 / 350.1 Balance 1000 / 1000 350.1 / 350.1 Weight last 48 hrs Weight 74.984 kg Weight 65.771 kg Physical Exam 2 Narrative: on BIPAP Urinary Catheter Management: Callahan: Cath Placed During This Visit: yes Reason for Continuing Indwelling Catheter: Accurate Measurement of Urinary Output in Critically Ill Patients Urinary Catheter Date of Insertion: 03/28/23 Urinary Catheter Time of Insertion: 03:48 Data 03/28/23 01:55 03/28/23 12:17 A&P Assessment and plan (1) Acute hyperkalemia: (2) Acute kidney injury: Plan 1. Acute on chronic kidney disease: Patient's baseline creatinine seems to be around 1.0-1.2 range. Now presented with KAYLI with a creatinine of 1.9 associated with severe hyperkalemia with a potassium of 6.9. KAYLI likely from meds with recent Bactrim use as well as possible ATN from recent infection. -Noted renal ultrasound results with nonvisualization of left kidney and unremarkable right kidney. -If no improvement, will consider gentle IV fluids -Check renal electrolytes, avoid nephrotoxins 2. Hyperkalemia: Severe, likely from KAYLI and recent Bactrim use as well as lisinopril. -Low potassium diet, med management for hyperkalemia and repeat BMP 3. Acute on chronic respiratory failure, on BiPAP 4. Right lower extremity cellulitis, antibiotics per primary team Patient evaluated using audiovisual cart. Time spent 40 minutes Consult Attestations 2 Medical Necessity Statement: per silvestre Coding Level of Care Code Acute Code for Chg Fwd Diagnoses Acute hyperkalemia E87.5 Acute kidney injury N17.9
[2023-03-28 14:42] LABS: ABG PCO2 55.1 mmHg (35-45); ABG PH Result 7.35 (7.35-7.45); Arterial Blood Gas Hematocrit 28.2 % (37-47); Base Excess ABG 4.3 mmol/L (-2.0-2.0); Blood Gas Allen Test Pos; Blood Gas Sample Type Arterial; HCO3 ABG 30.7 mmol/L (22-26); PO2 ABG 86.7 mmHg (80.0-100.0)
[2023-03-28 14:43] LABS: Blood Gas Operator Identificat MONRO; Blood Gas Sample Site Brachial, left; Blood Gas Tidal Volume 0.45; Oxygen Device BIPAP; PO2 FiO2 Ratio Arterial Blood 0
[2023-03-28 15:23] LABS: Troponin 5 2HR 40.91 ng/L (0-10)
[2023-03-28 15:24] LABS: Troponin 5 2HR Delta -2.09 ABS# (0-10)
[2023-03-28 19:03] LABS: Troponin 5 6HR 41.85 ng/L (0-10)
[2023-03-28 19:04] LABS: Troponin 5 6HR Delta -1.15 ng/L (0-12)
--- NOTE | 2023-03-28 19:44 | P.PN_ITS ---
Subjective 2 Subjective: Patient was seen this morning, patient's daughter is at bedside, she complains of shortness of breath, currently on BiPAP, complains of lower extremity swelling, she is status post left BKA, her right lower extremity is swollen, has 2+ pitting edema, she has does have generalized anasarca, shortness of breath crackles on exam, does report a productive cough, we discussed her kidney function and her hyperkalemia, I have given her another dose of insulin, D50, calcium gluconate, consulted nephrology of order renal ultrasound venous ultrasound, will have to watch her kidney function and urine output closely, currently she is in acute hypoxic hypercarbic respiratory failure likely secondary to fluid overload diastolic CHF exacerbation possible systolic CHF exacerbation have ordered an echo, will need to diurese her well, due to the concerns of her elevated creatinine, and her hyperkalemia she might need dialysis, we discussed the risks and benefits of dialysis, she voiced understanding, all consents are, agreeable to dialysis if needed, will continue to monitor consult nephrology Vitals/I&O/Wt Last Vital Signs Temp 98.3 F 03/28/23 01:39 Pulse 83 03/28/23 16:55 Resp 25 H 03/28/23 17:00 BP 141/43 03/28/23 17:00 Pulse Ox 91 03/28/23 17:00 O2 Del Method BiPAP 03/28/23 14:06 O2 Flow Rate 35 03/28/23 04:41 FiO2 30 03/28/23 14:08 03/28/23 03/28/23 03/28/23 06:59 14:59 22:59 Intake Total 1000 / 1000 350.1 / 350.1 1000 / 1350.1 Output Total 1350 / 1350 Balance 1000 / 1000 350.1 / 350.1 -350 / 0.1 Weight last 48 hrs Weight 74.984 kg Weight 65.771 kg Physical Exam 2 Const: COMMON NORMALS: no acute distress and patient oriented x3 HENMT: COMMON NORMALS: normocephalic HEAD & SCALP: normocephalic Resp: COMMON NORMALS: normal respiratory effort, No retractions and No use of accessory muscles AUSCULTATION: crackles Cardio: COMMON NORMALS: regular rate, regular rhythm, S1 normal heart sound present and S2 normal heart sound present RATE: regular rate RHYTHM: r egular rhythm HEART SOUNDS: S1 normal heart sound present and S2 normal heart sound present GI: COMMON NORMALS: Normal to inspection, nondistended, normoactive bowel sounds present and non-tender Neuro: COMMON NORMALS: patient oriented x3 Psych: COMMON NORMALS: mental status grossly normal Urinary Catheter Management: Callahan: Cath Placed During This Visit: yes Reason for Continuing Indwelling Catheter: Accurate Measurement of Urinary Output in Critically Ill Patients Urinary Catheter Date of Insertion: 03/28/23 Urinary Catheter Time of Insertion: 03:48 Data 03/28/23 01:55 03/28/23 12:17 A&P Assessment and plan (1) COPD exacerbation: (2) Acute on chronic respiratory failure with hypoxia and hypercapnia: (3) Hyperkalemia: (4) KAYLI (acute kidney injury): (5) Acute on chronic combined systolic (congestive) and diastolic (congestive) heart failure: (6) Coronary artery disease with angina pectoris: (7) Cellulitis: (8) Edema of right lower extremity: (9) Abscess or cellulitis of foot: (10) Acute kidney injury: Plan 78-year-old lady with past medical history as outlined above presenting to the emergency room today with increasing lethargy found to have evidence of hypoxic hypercapnic respiratory failure, acute on chronic. Acute hypoxic respiratory failure -Likely multifactorial from COPD exacerbation -Fluid overload, anasarca, pulm edema, systolic diastolic CHF exacerbation -Respiratory tract infection Plan -Admit to ICU ? Continue BiPAP ? Continue Solu-Medrol ?continue budesonide, ? Continue DuoNeb ? Continue Rocephin, add on Zyvox -Respiratory viral panel ? IV Lasix ? Monitor urine output next ?monitor BMP -Full code -Lovenox for DVT prophylaxis COPD exacerbation, as above Systolic and diastolic CHF exacerbation, -Daily dose Lasix -Monitor creatinine, monitor potassium, monitor urine output -Cardiac echo NSTEMI -Serial EKGs, short troponins, telemetry monitoring Acute kidney injury with hyperkalemia -Likely secondary to Bactrim use, lisinopril -Nephrology consulted -Renal ultrasound -Has received calcium gluconate, D50, insulin, Kayexalate -Repeat BMP at noon -Lasix dosing -Monitor urine output, will keep her n.p.o. overnight just in case her urine output drops she develops resistant hyperkalemia, elevated creatinine and needs dialysis catheter placement Right lower extremity swelling -Venous ultrasound Right lower extremity cellulitis, -Rocephin, Zyvox DVT prophylaxis Lovenox Full code Attestations 2 Medical Necessity Statement*: Patient requires hospitalization, inpatient, greater than 2 midnights, for acute hypoxic respiratory failure, with COPD exacerbation, fluid overload, KAYLI, hyperkalemia, Bactrim toxicity, right lower extremity swelling, right lower extremity cellulitis and High MDM includes number and complexity of problems actively addressed during encounter, amount and/or complexity of data reviewed/ordered and described risk of complication, morbidity or mortality of management as documented Diagnoses COPD exacerbation J44.1 Acute on chronic respiratory failure with hypoxia and hypercapnia J96.21; J96.22 Hyperkalemia E87.5 KAYLI (acute kidney injury) N17.9 Acute on chronic combined systolic (congestive) and diastolic (congestive) heart failure I50.43 Coronary artery disease with angina pectoris I25.119 Cellulitis L03.90 Edema of right lower extremity R60.0 Abscess or cellulitis of foot
[2023-03-28] MEDS: linezolid premix 600 MG/300 ML PREMIX 300 MG IV (20:13)
[2023-03-28 21:37] LABS: Blood Urea Nitrogen 53 mg/dL (8-23); Calcium 9.7 mg/dL (8.5-10.5); Carbon Dioxide 27 mmol/L (22-29); Chloride 97 mmol/L (98-107); Glucose 218 mg/dL (65-115); Osmolality Calculated 307 mOsm/kg (285-295); Sodium 138 mmol/L (136-145)
[2023-03-28 21:49] LABS: Anion Gap 19.8 (5-19); Potassium 5.8 mmol/L (3.5-5.1)
[2023-03-29] VITALS (162 sets, daily range): BP systolic 96–178; BP diastolic 47–93; PULSE 74–138; RESP 14–35; TEMP 36.4–37.1; O2SAT 84–99
[2023-03-29] MEDS: ipratropium-albuterol 3 mL Neb INHALATION ×4 (01:24→20:41)
[2023-03-29] MEDS: methylPREDNISolone sod succ 40 mg/mL INJ IVP ×3 (03:52→21:26)
[2023-03-29 04:08] LABS: Hematocrit 28.2 % (36-47); Lymphocytes # 0.3 10^3/uL (0.8-4.8); Lymphocytes % 6.2 %; Mean Corpuscular HGB Conc 29.8 g/dL (30-55); Mean Corpuscular Hemoglobin 28.3 pg (27-33); Mean Corpuscular Volume 94.9 fl (85-98); Mean Platelet Volume 10.8 fL (7.4-10.4); Monocytes # 0.3 10^3/uL (0.2-0.9); Monocytes % 5.4 %; Neutrophils # 4.54 10^3/uL (1.8-7.7); Nucleated Red Blood Cells % 0 %; Platelet Count 167 10^3/cmm (157-399); Red Blood Count 2.97 10^6/uL (3.85-5.65); Red Cell Distribution Width 13.8 % (12.1-15.1); White Blood Count 5.16 10^3/uL (3.29-11.43)
[2023-03-29 04:32] LABS: Alanine Aminotransferase 12 U/L (0-33); Albumin Level 3.9 g/dL (3.5-5.2); Alkaline Phosphatase 51 U/L (35-105); Anion Gap 13.1 (5-19); Aspartate Amino Transferase 19 U/L (0-32); Blood Urea Nitrogen 54 mg/dL (8-23); Calcium 9.5 mg/dL (8.5-10.5); Carbon Dioxide 34 mmol/L (22-29); Chloride 99 mmol/L (98-107); Globulin 2.3 g/dL (1.3-4.6); Glucose 127 mg/dL (65-115); Osmolality Calculated 308 mOsm/kg (285-295); Potassium 5.1 mmol/L (3.5-5.1); Sodium 141 mmol/L (136-145); Total Bilirubin 0.2 mg/dL (0.15-1.2); Total Protein 6.2 g/dL (6.6-8.7)
[2023-03-29 04:40] LABS: NT Pro B Type Natriuretic Pept 2796 pg/mL (0-450)
[2023-03-29] MEDS: clopidogrel 75 mg Tablet PO (05:27)
[2023-03-29 05:49] LABS: ABG PCO2 59.4 mmHg (35-45); ABG PH Result 7.36 (7.35-7.45); Arterial Blood Gas Hematocrit 26.6 % (37-47); Base Excess ABG 7.2 mmol/L (-2.0-2.0); Blood Gas Operator Identificat JB; Blood Gas Sample Type Arterial; HCO3 ABG 33.8 mmol/L (22-26); Oxygen Device NC; PO2 ABG 79.1 mmHg (80.0-100.0)
[2023-03-29 05:54] LABS: Blood Gas Sample Site Brachial, right
[2023-03-29] MEDS: linezolid premix 600 MG/300 ML PREMIX 300 MG IV ×2 (08:02→21:27)
[2023-03-29] MEDS: cefTRIAXone 1,000 MG in sodium chloride 0.9% (plus) 50 ML 100 MG IV (08:03)
[2023-03-29] MEDS: atorvastatin 40 mg Tablet PO (08:03)
[2023-03-29] MEDS: pantoprazole DR 40 mg Tablet PO (08:03)
[2023-03-29] MEDS: enoxaparin 40 mg/0.4 mL Syringe SUBCUT (08:03)
[2023-03-29] MEDS: nystatin powder 30 gm Btl 1 APPLIC TOPICAL ×2 (08:04→17:27)
[2023-03-29] MEDS: budesonide 0.5 mg/2 mL Neb INHALATION ×2 (08:33→20:41)
--- NOTE | 2023-03-29 11:29 | P.PN_ITS ---
Subjective 2 Subjective: uop 2300 cc K better on BIPAP Medications: Reviewed: Yes Vitals/I&O/Wt Last Vital Signs Temp 98.4 F 03/29/23 08:05 Pulse 88 03/29/23 10:37 Resp 30 H 03/29/23 08:05 BP 137/72 03/29/23 08:05 Pulse Ox 97 03/29/23 10:37 O2 Del Method BiPAP 03/29/23 08:05 O2 Flow Rate 3 03/29/23 01:27 FiO2 30 03/29/23 10:37 03/28/23 03/29/23 03/29/23 22:59 06:59 14:59 Intake Total 1300 / 1650.1 470 / 470 Output Total 1350 / 1350 950 / 2300 Balance -50 / 300.1 -950 / -649.9 470 / 470 Weight last 48 hrs Weight 72 kg Weight 74.984 kg Weight 65.771 kg Physical Exam 2 Narrative: on BIPAP Urinary Catheter Management: Callahan: Cath Placed During This Visit: yes Reason for Continuing Indwelling Catheter: Accurate Measurement of Urinary Output in Critically Ill Patients Urinary Catheter Date of Insertion: 03/28/23 Urinary Catheter Time of Insertion: 03:48 Data 03/29/23 03:35 03/29/23 03:35 A&P Assessment and plan (1) Acute hyperkalemia: (2) Acute kidney injury: Plan 1. Acute on chronic kidney disease: Patient's baseline creatinine seems to be around 1.0-1.2 range. Now presented with KAYLI with a creatinine of 1.9 associated with severe hyperkalemia with a potassium of 6.9. KAYLI likely from meds with recent Bactrim use as well as possible ATN from recent infection. -Noted renal ultrasound results with nonvisualization of left kidney and unremarkable right kidney. -K improved , Cr stable , monitor -Check renal electrolytes, avoid nephrotoxins 2. Hyperkalemia: Severe, likely from KAYLI and recent Bactrim use as well as lisinopril. -Low potassium diet, K improved , continue low K diet 3. Acute on chronic respiratory failure, on BiPAP 4. Right lower extremity cellulitis, antibiotics per primary team Patient evaluated using audiovisual cart. Time spent 20 minutes Attestations 2 Medical Necessity Statement*: per [facility] Coding Level of Care Code Acute Code for Chg Fwd Diagnoses Acute hyperkalemia E87.5 Acute kidney injury N17.9
--- NOTE | 2023-03-29 15:52 | PM.PN ---
Subjective Subjective: He has not worsened. But also has not improved a lot. Per her daughter she is doing better compared to admission. Cellulitis of right lower extremity for which she was taking Bactrim has resolved. There is some persistent edema of right lower extremity Vitals/I&O/Wt Last Vital Signs Temp 98.7 F 03/29/23 12:35 Pulse 88 03/29/23 15:01 Resp 18 03/29/23 14:00 BP 96/68 03/29/23 12:35 Pulse Ox 95 03/29/23 15:01 O2 Del Method BiPAP 03/29/23 14:00 O2 Flow Rate 5 03/29/23 12:35 FiO2 30 03/29/23 15:01 03/29/23 03/29/23 03/29/23 06:59 14:59 22:59 Intake Total 710 / 710 Output Total 950 / 2300 Balance -950 / -649.9 710 / 710 Weight last 48 hrs Weight 72 kg Weight 74.984 kg Weight 65.771 kg Physical Exam Narrative: Accompanied by her daughter Const: COMMON NORMALS: patient oriented x3 and alert GENERAL APPEARANCE: cooperative ORIENTATION/CONSCIOUSNESS: Yes awake HENMT: COMMON NORMALS: oropharynx normal Neck/C-Spine: COMMON NORMALS: no JVD Resp: COMMON NORMALS: normal respiratory effort and clear to auscultation bilaterally AUSCULTATION: clear to auscultation bilaterally Cardio: COMMON NORMALS: no JVD, regular rhythm, S1 normal heart sound present, S2 normal heart sound present and No murmurs present (Cardio) RHYTHM: regular rhythm HEART SOUNDS: S1 normal heart sound present and S2 normal heart sound present GI: COMMON NORMALS: Normal to inspection, nondistended, normoactive bowel sounds present, Soft to palpation and non-tender PALPATION: Yes Soft to palpation Extremity: COMMON NORMALS: no joint enlargement GENERAL: Yes edema (1+) OTHER: L BKA Neuro: COMMON NORMALS: patient oriented x3 and moves all extremities SENSORIUM/ORIENTATION: Yes alert Skin: OTHER: Chronic stasis changes RLE Urinary Catheter Management: Callahan: Cath Placed During This Visit: yes Reason for Continuing Indwelling Catheter: Accurate Measurement of Urinary Output in Critically Ill Patients Urinary Catheter Date of Insertion: 03/28/23 Urinary Catheter Time of Insertion: 03:48 Data 03/29/23 03:35 03/29/23 03:35 A&P Assessment and plan (1) COPD exacerbation: (2) Acute on chronic respiratory failure with hypoxia and hypercapnia: (3) Hyperkalemia: (4) KAYLI (acute kidney injury): (5) Acute on chronic combined systolic (congestive) and diastolic (congestive) heart failure: (6) Coronary artery disease with angina pectoris: (7) Cellulitis: (8) Edema of right lower extremity: (9) Abscess or cellulitis of foot: Plan 78-year-old lady with past medical history as outlined above presenting to the emergency room today with increasing lethargy found to have evidence of hypoxic hypercapnic respiratory failure, acute on chronic. Acute hypoxic respiratory failure -Likely multifactorial from COPD exacerbation -Fluid overload, anasarca, pulm edema, systolic diastolic CHF exacerbation -Respiratory tract infection Reviewed vital signs, afebrile. Reviewed WBC, no leukocytosis. Reviewed blood culture, pending. ? Continue BiPAP support as needed ? Continue Solu-Medrol ?continue budesonide, ? Continue DuoNeb ? Continue Rocephin Zyvox. Monitor CBC due to risk of adrenal cytosis with Zyvox. -Respiratory viral panel reviewed, negative Follow-up CBC and BMP requested. Discussed with housing case manager. ? Monitor urine output next ?monitor BMP -Full code -Lovenox for DVT prophylaxis COPD exacerbation, as above Systolic and diastolic CHF exacerbation, Lasix has been held with some recent acute kidney injury, soft blood pressure. Reassess volume status. -Daily dose Lasix -Monitor creatinine, monitor potassium, monitor urine output -Follow-up cardiac echo NSTEMI -Serial EKGs, short troponins, telemetry monitoring. Follow-up echo. Acute kidney injury with hyperkalemia Reviewed BUN, creatinine. Kidney function appears to stabilize so far. Hyperkalemia, potassium reviewed, with improvement. Has not required dialysis so far. Reviewed nephrology note. Reviewed kidney ultrasound. Only has 1 kidney. Discussed with her and daughter avoiding nephro toxic medications. Avoid Bactrim. Hold lisinopril. Follow-up BMP requested. Right lower extremity swelling -Reviewed venous ultrasound Right lower extremity cellulitis, -Rocephin, Zyvox DVT prophylaxis Lovenox Full code Attestations Medical Necessity Statement*: Continue admission for assessment management of hypoxic respiratory failure, KAYLI. Diagnoses COPD exacerbation J44.1 Acute on chronic respiratory failure with hypoxia and hypercapnia J96.21; J96.22 Hyperkalemia E87.5 KAYLI (acute kidney injury) N17.9 Acute on chronic combined systolic (congestive) and diastolic (congestive) heart failure I50.43 Coronary artery disease with angina pectoris I25.119 Cellulitis L03.90 Edema of right lower extremity R60.0 Abscess or cellulitis of foot
--- NOTE | 2023-03-29 19:47 | USCV_ITS ---
Bridgette Malik Age: 78 Gender: F : 1945 Exam Date: 03/29/2023 14:26 Ordering Phys: Kobi Thakkar MD Technologist: Steve Blas [place] [facility] [place]: sob chest pain BP: 143 / 74 HR: 86 Rhythm: Sinus Technical Quality: Adequate MEASUREMENTS (Male / Female) Normal Values 2D ECHO LV Ejection Fraction MOD 2C 68.6 % LV Ejection Fraction 2C AL 70.9 % IVC Diameter 1.9 cm DOPPLER AV Peak Velocity 232.0 cm/s MV Area PHT 5.0 cm squared Mitral E to A Ratio 0.8 MV E' Velocity 71.0 cm/s Mitral E to MV E' Ratio 17.4 Mitral E to LV E' Lateral Ratio 15.9 Mitral E to LV E' Septal Ratio 19.4 TR Peak Velocity 233.0 cm/s TR Peak Gradient 21.7 mmHg TV Peak E Velocity 186.0 cm/s Right Atrial Pressure 3.0 mmHg Pulmonary Artery Systolic Pressu 24.7 mmHg RV Acceleration Time 0.1 s FINDINGS Left Ventricle Normal left ventricular size and ejection fraction, EF 68 %. Hypokinetic basal and mid inferior wall segments. Relative hypokinesia of the septum. Right Ventricle The right ventricle is normal in size and function. Right Atrium The right atrium is normal in size. Left Atrium The left atrium is normal in size. Mitral Valve Thickened mitral valve. Mild mitral valve regurgitation. Aortic Valve Could not be visualized well Tricuspid Valve . Tricuspid valve not well visualized. Pulmonic Valve Pulmonic valve not well visualized. Pericardium Normal pericardium without effusion. Aorta Normal aortic annulus size. IVC The inferior vena cava appears normal. CONCLUSIONS Normal left ventricular size and ejection fraction, EF 68 %. Wall motion abnormalities as mentioned above. Tricuspid valve not well visualized. Thickened mitral valve. Mild mitral valve regurgitation. There is no pericardial effusion. There are no intracardiac masses. Technically difficult study because of poor parasternal views Dr Gayle Valdovinos MD FAC (Electronically Signed) Final Date: 29 March 2023 18:34 S
[2023-03-30] VITALS (15 sets, daily range): BP systolic 142–180; BP diastolic 62–66; PULSE 73–96; RESP 13–24; TEMP 36.6–37.3; O2SAT 91–98; BMI 28.0
[2023-03-30 03:45] LABS: Hematocrit 29.7 % (36-47); Lymphocytes # 0.4 10^3/uL (0.8-4.8); Lymphocytes % 6.1 %; Mean Corpuscular HGB Conc 30.3 g/dL (30-55); Mean Corpuscular Hemoglobin 28.6 pg (27-33); Mean Corpuscular Volume 94.3 fl (85-98); Monocytes # 0.2 10^3/uL (0.2-0.9); Monocytes % 3.2 %; Neutrophils # 5.14 10^3/uL (1.8-7.7); Nucleated Red Blood Cells % 0 %; Platelet Count 172 10^3/cmm (157-399); Red Blood Count 3.15 10^6/uL (3.85-5.65); Red Cell Distribution Width 13.7 % (12.1-15.1); White Blood Count 5.71 10^3/uL (3.29-11.43)
[2023-03-30] MEDS: methylPREDNISolone sod succ 40 mg/mL INJ IVP ×3 (03:46→18:02)
[2023-03-30 04:02] LABS: Anion Gap 13.4 (5-19); Blood Urea Nitrogen 50 mg/dL (8-23); Carbon Dioxide 34 mmol/L (22-29); Chloride 98 mmol/L (98-107); Glucose 145 mg/dL (65-115); Osmolality Calculated 308 mOsm/kg (285-295); Potassium 4.4 mmol/L (3.5-5.1); Sodium 141 mmol/L (136-145)
[2023-03-30 04:12] LABS: NT Pro B Type Natriuretic Pept 5985 pg/mL (0-450)
[2023-03-30] MEDS: phenol oral Spray 177 mL 3 SPRAY MUCOUS MEM (04:45)
--- NOTE | 2023-03-30 05:17 | PC.NURSE ---
patient refusing blood pressures this shift reporting pain when the blood pressure cuff inflates
[2023-03-30] MEDS: clopidogrel 75 mg Tablet PO (05:55)
--- NOTE | 2023-03-30 07:03 | P.PN_ITS ---
Subjective 2 Subjective: on BIPAP Medications: Reviewed: Yes Vitals/I&O/Wt Last Vital Signs Temp 98.3 F 03/30/23 00:54 Pulse 90 03/30/23 06:00 Resp 23 H 03/30/23 05:15 BP 114/82 03/29/23 21:30 Pulse Ox 98 03/30/23 05:15 O2 Del Method BiPAP 03/30/23 02:00 O2 Flow Rate 5 03/29/23 12:35 FiO2 30 03/30/23 02:00 03/29/23 03/30/23 03/30/23 22:59 06:59 14:59 Intake Total 300 / 1010 200 / 1210 Output Total 750 / 750 350 / 1100 Balance -450 / 260 -150 / 110 Weight last 48 hrs Weight 72 kg Weight 72 kg Weight 74.984 kg Physical Exam 2 Narrative: on BIPAP Urinary Catheter Management: Callahan: Cath Placed During This Visit: yes Reason for Continuing Indwelling Catheter: Accurate Measurement of Urinary Output in Critically Ill Patients Urinary Catheter Date of Insertion: 03/28/23 Urinary Catheter Time of Insertion: 03:48 Data 03/30/23 03:32 03/30/23 03:32 A&P Assessment and plan (1) Acute hyperkalemia: (2) Acute kidney injury: Plan 1. Acute on chronic kidney disease: Patient's baseline creatinine seems to be around 1.0-1.2 range. Now presented with KAYLI with a creatinine of 1.9 associated with severe hyperkalemia with a potassium of 6.9. KAYLI likely from meds with recent Bactrim use as well as possible ATN from recent infection. -Noted renal ultrasound results with nonvisualization of left kidney and unremarkable right kidney. -K improved , Cr stable , monitor -, avoid nephrotoxins 2. Hyperkalemia: likely from AKYLI and recent Bactrim use as well as lisinopril. -Low potassium diet, K improved , continue low K diet 3. Acute on chronic respiratory failure, on BiPAP 4. Right lower extremity cellulitis, antibiotics per primary team Patient evaluated using audiovisual cart. Time spent 20 minutes Attestations 2 Medical Necessity Statement*: per meenanv Coding Level of Care Code Acute Code for [facility] Diagnoses Acute hyperkalemia E87.5 Acute kidney injury N17.9
[2023-03-30] MEDS: enoxaparin 40 mg/0.4 mL Syringe SUBCUT (07:46)
[2023-03-30] MEDS: linezolid premix 600 MG/300 ML PREMIX 300 MG IV ×2 (07:46→19:48)
[2023-03-30] MEDS: cefTRIAXone 1,000 MG in sodium chloride 0.9% (plus) 50 ML 100 MG IV (07:46)
[2023-03-30] MEDS: budesonide 0.5 mg/2 mL Neb INHALATION ×2 (09:32→20:08)
[2023-03-30] MEDS: ipratropium-albuterol 3 mL Neb INHALATION ×3 (09:32→20:08)
[2023-03-30] MEDS: atorvastatin 40 mg Tablet PO (10:11)
[2023-03-30] MEDS: pantoprazole DR 40 mg Tablet PO (10:11)
[2023-03-30] MEDS: nystatin powder 30 gm Btl 1 APPLIC TOPICAL ×2 (10:12→18:01)
--- NOTE | 2023-03-30 10:15 | PC.NURSE ---
Patient is refusing blood pressure checks at this time.
--- NOTE | 2023-03-30 16:34 | PC.NURSE ---
Patient transferred to medical surgical floor room 267 on 3L NC. Patient resting in bed with belongings at bedside including her glasses, cellphone, and nystatin powder. Nurse aid at bedside to assist with transfer and for admission vitals. Patient had no requests or complaints at the time of transfer. Paper chart left with staff at welcome desk agent.
[2023-03-30] MEDS: acetaminophen 325 mg Tablet 650 MG PO (19:54)
--- NOTE | 2023-03-30 21:31 | PM.PN ---
Subjective Subjective: She denies any new symptoms. Reports breathing is about the same. Vitals/I&O/Wt Last Vital Signs Temp 97.9 F 03/30/23 19:44 Pulse 93 03/30/23 20:00 Resp 22 H 03/30/23 20:00 BP 174/63 03/30/23 19:44 Pulse Ox 92 03/30/23 20:00 O2 Del Method Nasal Cannula 03/30/23 20:00 O2 Flow Rate 3 03/30/23 20:00 FiO2 30 03/30/23 10:07 03/30/23 03/30/23 03/30/23 06:59 14:59 22:59 Intake Total 200 / 1210 708 / 708 300 / 1008 Output Total 350 / 1100 650 / 650 Balance -150 / 110 708 / 708 -350 / 358 Weight last 48 hrs Weight 72 kg Weight 72 kg Physical Exam Const: COMMON NORMALS: patient oriented x3 and alert GENERAL APPEARANCE: cooperative ORIENTATION/CONSCIOUSNESS: Yes awake HENMT: COMMON NORMALS: oropharynx normal Neck/C-Spine: COMMON NORMALS: no JVD Resp: COMMON NORMALS: normal respiratory effort and clear to auscultation bilaterally AUSCULTATION: clear to auscultation bilaterally Cardio: COMMON NORMALS: no JVD, regular rhythm, S1 normal heart sound present, S2 normal heart sound present and No murmurs present (Cardio) RHYTHM: regular rhythm HEART SOUNDS: S1 normal heart sound present and S2 normal heart sound present GI: COMMON NORMALS: Normal to inspection, nondistended, normoactive bowel sounds present, Soft to palpation and non-tender PALPATION: Yes Soft to palpation Extremity: COMMON NORMALS: no joint enlargement GENERAL: Yes edema (1+) OTHER: L BKA Neuro: COMMON NORMALS: patient oriented x3 and moves all extremities SENSORIUM/ORIENTATION: Yes alert Skin: OTHER: Chronic stasis changes RLE Urinary Catheter Management: Callahan: Cath Placed During This Visit: yes Reason for Continuing Indwelling Catheter: Accurate Measurement of Urinary Output in Critically Ill Patients Urinary Catheter Date of Insertion: 03/28/23 Urinary Catheter Time of Insertion: 03:48 Data 03/30/23 03:32 03/30/23 03:32 A&P Assessment and plan (1) COPD exacerbation: (2) Acute on chronic respiratory failure with hypoxia and hypercapnia: (3) Hyperkalemia: (4) KAYLI (acute kidney injury): (5) Acute on chronic combined systolic (congestive) and diastolic (congestive) heart failure: (6) Coronary artery disease with angina pectoris: (7) Cellulitis: (8) Edema of right lower extremity: (9) Abscess or cellulitis of foot: Plan 78-year-old lady with past medical history as outlined above presenting to the emergency room today with increasing lethargy found to have evidence of hypoxic hypercapnic respiratory failure, acute on chronic. Acute hypoxic respiratory failure Still some tachypnea. On 4 L of oxygen this morning. However, overall improving. Discussed with her transfer out of intensive care unit, she was concerned about moving out, requested for private room for her. She otherwise feels she may be getting closer to being able to return home. Will reassess in the morning to improve consider discharge. Discussed with nurse outreach case manager. Continue Solu-Medrol, ceftriaxone, linezolid. Monitor for hypoglycemia risk with steroid. Monitor for risk of adrenal cytosis with linezolid. Recheck CBC. Blood glucose. Glucose levels reviewed. C,Reviewed vitals, CBC BMP. Blood culture, pending. Requesting sputum culture. -Likely multifactorial from COPD exacerbation -Fluid overload, anasarca, pulm edema, systolic diastolic CHF exacerbation -Respiratory tract infection ? Continue BiPAP support as needed ? Continue Solu-Medrol ?continue budesonide, ? Continue DuoNeb ? Monitor urine output next ?monitor BMP -Full code -Lovenox for DVT prophylaxis COPD exacerbation, as above Systolic and diastolic CHF exacerbation, Lasix has been held with some recent acute kidney injury, soft blood pressure. Reassess volume status. -Daily dose Lasix -Monitor creatinine, monitor potassium, monitor urine output -Follow-up cardiac echo Acute kidney injury with hyperkalemia Reviewed BUN, creatinine. Continue to improve. Creatinine down to 1.7. Reviewed intake and output, producing urine. Reviewed BUN, creatinine. Kidney function appears to stabilize so far. Hyperkalemia, potassium reviewed, with improvement. Has not required dialysis so far. Reviewed nephrology note. Reviewed kidney ultrasound. Only has 1 kidney. Discussed with her and daughter avoiding nephro toxic medications. Avoid Bactrim. Hold lisinopril. Follow-up BMP requested. NSTEMI: Reviewed echocardiogram. Noted regional wall motion status. She tells me she had previously had 3 WA. Has had no chest pain. Discussed with her follow-up stress test on nonemergent basis after recovery from acute illness. -Serial EKGs, short troponins, telemetry monitoring. Follow-up echo. Right lower extremity swelling -Reviewed venous ultrasound Right lower extremity cellulitis, -Rocephin, Zyvox DVT prophylaxis Lovenox Full code Attestations Medical Necessity Statement*: Continue admission for assessment management of slowly improving hypoxic respiratory failure, COPD exacerbation, underlying CHF, acute kidney injury. Diagnoses COPD exacerbation J44.1 Acute on chronic respiratory failure with hypoxia and hypercapnia J96.21; J96.22 Hyperkalemia E87.5 KAYLI (acute kidney injury) N17.9 Acute on chronic combined systolic (congestive) and diastolic (congestive) heart failure I50.43 Coronary artery disease with angina pectoris I25.119 Cellulitis L03.90 Edema of right lower extremity R60.0 Abscess or cellulitis of foot
[2023-03-31] VITALS (12 sets, daily range): BP systolic 163–176; BP diastolic 68–85; PULSE 74–98; RESP 16–22; TEMP 36.6–36.8; O2SAT 93–99; BMI 28.3
[2023-03-31] MEDS: ipratropium-albuterol 3 mL Neb INHALATION ×2 (02:08→09:11)
[2023-03-31] MEDS: methylPREDNISolone sod succ 40 mg/mL INJ IVP ×2 (02:56→10:35)
[2023-03-31 05:08] LABS: Hematocrit 30.7 % (36-47); Lymphocytes # 0.5 10^3/uL (0.8-4.8); Lymphocytes % 8.6 %; Mean Corpuscular HGB Conc 30.3 g/dL (30-55); Mean Corpuscular Hemoglobin 28.3 pg (27-33); Mean Corpuscular Volume 93.3 fl (85-98); Mean Platelet Volume 10.6 fL (7.4-10.4); Monocytes # 0.3 10^3/uL (0.2-0.9); Neutrophils # 4.48 10^3/uL (1.8-7.7); Neutrophils % 85.3 %; Nucleated Red Blood Cells % 0 %; Platelet Count 160 10^3/cmm (157-399); Red Blood Count 3.29 10^6/uL (3.85-5.65); Red Cell Distribution Width 13.2 % (12.1-15.1); White Blood Count 5.25 10^3/uL (3.29-11.43)
[2023-03-31] MEDS: clopidogrel 75 mg Tablet PO (05:17)
[2023-03-31 05:30] LABS: Anion Gap 12.2 (5-19); Blood Urea Nitrogen 42 mg/dL (8-23); Calcium 9.2 mg/dL (8.5-10.5); Carbon Dioxide 35 mmol/L (22-29); Chloride 97 mmol/L (98-107); Glucose 126 mg/dL (65-115); Osmolality Calculated 302 mOsm/kg (285-295); Potassium 4.2 mmol/L (3.5-5.1); Sodium 140 mmol/L (136-145)
[2023-03-31 05:52] LABS: NT Pro B Type Natriuretic Pept 6838 pg/mL (0-450)
[2023-03-31] MEDS: linezolid premix 600 MG/300 ML PREMIX 300 MG IV (07:49)
[2023-03-31] MEDS: enoxaparin 40 mg/0.4 mL Syringe SUBCUT (07:51)
[2023-03-31] MEDS: nystatin powder 30 gm Btl 1 APPLIC TOPICAL (08:33)
[2023-03-31] MEDS: pantoprazole DR 40 mg Tablet PO (08:33)
[2023-03-31] MEDS: amlodipine 10 mg Tablet PO (08:34)
[2023-03-31] MEDS: atorvastatin 40 mg Tablet PO (08:34)
[2023-03-31] MEDS: cefTRIAXone 1,000 MG in sodium chloride 0.9% (plus) 50 ML 100 MG IV (08:49)
[2023-03-31] MEDS: budesonide 0.5 mg/2 mL Neb INHALATION (09:11)
--- NOTE | 2023-03-31 10:30 | P.PN_ITS ---
Subjective 2 Subjective: no new complaints Medications: Reviewed: Yes Vitals/I&O/Wt Last Vital Signs Temp 97.9 F 03/31/23 10:24 Pulse 85 03/31/23 10:24 Resp 18 03/31/23 10:24 BP 169/69 03/31/23 10:24 Pulse Ox 96 03/31/23 10:24 O2 Del Method Nasal Cannula 03/31/23 10:24 O2 Flow Rate 2 03/31/23 09:17 FiO2 30 03/31/23 04:19 03/30/23 03/31/23 03/31/23 22:59 06:59 14:59 Intake Total 300 / 1008 410 / 410 Output Total 650 / 650 400 / 1050 Balance -350 / 358 -400 / -42 410 / 410 Weight last 48 hrs Weight 72.711 kg Weight 72 kg Physical Exam 2 Narrative: on BIPAP Urinary Catheter Management: Callahan: Cath Placed During This Visit: yes Reason for Continuing Indwelling Catheter: Assist Healing of Perineal & Sacral Wounds- Incontinent Patients Urinary Catheter Date of Insertion: 03/28/23 Urinary Catheter Time of Insertion: 03:48 Data 03/31/23 04:57 03/31/23 04:57 Micro: Microbiology 03/28/23 02:45 Blood Culture - Preliminary Blood 03/28/23 02:37 Blood Culture - Preliminary Blood A&P Assessment and plan (1) Acute hyperkalemia: (2) Acute kidney injury: Plan 1. Acute on chronic kidney disease: Patient's baseline creatinine seems to be around 1.0-1.2 range. Now presented with KAYLI with a creatinine of 1.9 associated with severe hyperkalemia with a potassium of 6.9. KAYLI likely from meds with recent Bactrim use as well as possible ATN from recent infection. -Noted renal ultrasound results with nonvisualization of left kidney and unremarkable right kidney. -K improved , Cr stable , monitor -, avoid nephrotoxins 2. Hyperkalemia: likely from KAYLI and recent Bactrim use as well as lisinopril. -Low potassium diet, K improved , continue low K diet 3. Acute on chronic respiratory failure, on BiPAP 4. Right lower extremity cellulitis, antibiotics per primary team Patient evaluated using audiovisual cart. Time spent 20 minutes Attestations 2 Medical Necessity Statement*: per medicine Coding Level of Care Code Acute Code for [facility] Diagnoses Acute hyperkalemia E87.5 Acute kidney injury N17.9
--- NOTE | 2023-03-31 11:32 | PC.SOCIAL ---
Pg 2 IMM Explained to pt Pg 2 IMM. No questions voiced. Provided pt a copy. Initialed, dated, & timed a copy & placed in chart.
--- NOTE | 2023-03-31 12:42 | P.DS_ITS ---
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 She was treated with antibiotics, steroids, breathing treatments for COPD exacerbation, diuretics for systolic and diastolic congestive heart failure exacerbation, Bactrim, lisinopril, HCTZ were held. Avoid nephrotoxic medications, avoid Bactrim, avoid NSAIDs. Kidney function gradually showing improvement. Creatinine down to 1.3. Please reassess. Please have her follow- up with nephrology. She is asked to hold lisinopril, HCTZ for now while kidneys are recovering, consider when it may be safe to resume. With moderate troponin elevation on presentation, history of CAD, stenting, was assessed by TTE, with normal ejection fraction but with findings of regional wall motion abnormality with hypokinetic basal and mid inferior wall segments, LV hypokinesia of the septum. She has remained chest pain-free in the hospital. However, with active smoking, risk factors of coronary disease progression is referred for additional assessment with stress testing. Please follow-up. She additionally reports having carotid disease for which she is following with primary provider. She is encouraged to quit smoking. Continue Plavix, statin, beta-allen. She states likely would not pursue carotid surgery, overall would not want to pursue any overly aggressive treatments, understands risk of stroke, however, is okay with continue medical treatments and following up. Respiratory condition has gradually improved. Culture requirement has been improving. She still has some diminished air entry, wheezing with improvement. Will complete prednisone taper, antibiotic course. States she has oxygen, nebulizer and enough nebulization solution and CPAP at home which she will continue to use. Physical Exam Const: COMMON NORMALS: patient oriented x3 and alert GENERAL APPEARANCE: cooperative ORIENTATION/CONSCIOUSNESS: Yes awake HENMT: COMMON NORMALS: oropharynx normal Neck/C-Spine: COMMON NORMALS: no JVD Resp: COMMON NORMALS: normal respiratory effort AUSCULTATION: diminished lung sounds Cardio: COMMON NORMALS: no JVD, regular rhythm, S1 normal heart sound present, S2 normal heart sound present and No murmurs present (Cardio) RHYTHM: regular rhythm HEART SOUNDS: S1 normal heart sound present and S2 normal heart sound present GI: COMMON NORMALS: Normal to inspection, nondistended, normoactive bowel sounds present, Soft to palpation and non-tender PALPATION: Yes Soft to palpation Extremity: COMMON NORMALS: no joint enlargement and no pedal edema OTHER: L BKA Neuro: COMMON NORMALS: patient oriented x3 and moves all extremities SENSORIUM/ORIENTATION: Yes alert Skin: OTHER: Chronic stasis changes RLE Urinary Catheter Management: Callahan: Cath Placed During This Visit: no Discharge Data Studies Completed and Pending Completed Studies During Hospitalization Category Date Time Status XR chest 1V [id number] Stat Exams 03/28/23 01:43 [place] [id number] Routine Ultrasound 03/28/23 11:26 Completed CV. echo complete* [id number] Routine Ultrasound 03/29/23 19:47 Completed US renal BI* [id number] Routine Ultrasound 03/28/23 08:38 Completed Pending at discharge Category Date Time Status Basic Metabolic Panel AM LABS Lab 04/01/23 04:00 Ordered Blood Cultures ([facility]) Routine Lab 03/28/23 02:37 Results Blood Cultures ([facility]) Routine Lab 03/28/23 02:45 Results Complete Blood Count w/Auto AM LABS Lab 04/01/23 04:00 Ordered Sputum Culture and Gram Stain Routine Lab 03/30/23 21:34 Uncollected Radiology Impressions Chest X-Ray 03/28/23 01:43 IMPRESSION: Negative for acute chest pathology. Renal Ultrasound 03/28/23 08:38 IMPRESSION: 1. Unremarkable right kidney. 2. Left kidney is not visible. Venous Duplex 03/28/23 11:26 IMPRESSION: No deep venous thrombosis. Laboratory Results WBC 5.25 10^3/uL (3.29-11.43) 03/31/23 04:57 RBC 3.29 10^6/uL (3.85-5.65) L 03/31/23 04:57 Hgb 9.30 g/dL (11.27-16.99) L 03/31/23 04:57 Hct 30.7 % (36-47) L 03/31/23 04:57 MCV 93.3 fl (85-98) 03/31/23 04:57 MCH 28.3 pg (27-33) 03/31/23 04:57 MCHC 30.3 g/dL (30-55) 03/31/23 04:57 RDW 13.2 % (12.1-15.1) 03/31/23 04:57 Plt Count 160 10^3/cmm (157-399) 03/31/23 04:57 MPV 10.6 fL (7.4-10.4) H 03/31/23 04:57 Neut % (Auto) 85.3 % 03/31/23 04:57 Lymph % (Auto) 8.6 % 03/31/23 04:57 [place] % (Auto) 5.0 % 03/31/23 04:57 Eos % (Auto) 0.0 % 03/31/23 04:57 Baso % (Auto) 0.0 % 03/31/23 04:57 Neut # (Auto) 4.48 10^3/uL (1.8-7.7) 03/31/23 04:57 Lymph # (Auto) 0.5 10^3/uL (0.8-4.8) L 03/31/23 04:57 [place] # (Auto) 0.3 10^3/uL (0.2-0.9) 03/31/23 04:57 Eos # (Auto) 0.0 10^3/uL (0.0-0.8) 03/31/23 04:57 Baso # (Auto) 0.0 10^3/uL (0.0-0.1) 03/31/23 04:57 Nucleated RBC % (auto) 0 % 03/31/23 04:57 Nucleated RBCs # 0.0 /100WBC 03/31/23 04:57 D-Dimer 3.62 ug/mLFEU (0-0.59) H 03/28/23 12:17 Specimen Type Arterial 03/29/23 05:25 Sample Site Brachial, right 03/29/23 05:25 ABG pH 7.36 (7.35-7.45) 03/29/23 05:25 ABG pCO2 59.4 mmHg (35-45) H 03/29/23 05:25 ABG pO2 79.1 mmHg (80.0-100.0) L 03/29/23 05:25 ABG PO2/FiO2 Ratio 0 03/28/23 14:30 ABG HCO3 33.8 mmol/L (22-26) H 03/29/23 05:25 ABG Base Excess 7.2 mmol/L (-2.0-2.0) H 03/29/23 05:25 Jean Test N/a 03/29/23 05:25 Hematocrit 26.6 % (37-47) L 03/29/23 05:25 O2 Delivery Device Nc 03/29/23 05:25 O2 Liters/Min 3.0 % 03/29/23 05:25 FiO2 30.0 % 03/28/23 14:30 Tidal Volume 0.45 03/28/23 14:30 PEEP 8.0 cmH20 03/28/23 14:30 Clinical Trial Assistant ID Damián 03/29/23 05:25 Sodium 140 mmol/L (136-145) 03/31/23 04:57 Potassium 4.2 mmol/L (3.5-5.1) 03/31/23 04:57 Chloride 97 mmol/L (98-107) L 03/31/23 04:57 Carbon Dioxide 35 mmol/L (22-29) H 03/31/23 04:57 Anion Gap 12.2 (5-19) 03/31/23 04:57 BUN 42 mg/dL (8-23) H 03/31/23 04:57 Creatinine 1.3 mg/dL (0.5-0.9) H 03/31/23 04:57 GFR Calculation Not Reportable 03/31/23 04:57 Glucose 126 mg/dL (65-115) H 03/31/23 04:57 Calculated Osmolality 302 mOsm/kg (285-295) H 03/31/23 04:57 Lactic Acid 0.8 mmol/L (0.5-2.2) 03/28/23 01:55 Calcium 9.2 mg/dL (8.5-10.5) 03/31/23 04:57 Total Bilirubin 0.2 mg/dL (0.15-1.2) 03/29/23 03:35 AST 19 U/L (0-32) 03/29/23 03:35 ALT 12 U/L (0-33) 03/29/23 03:35 Alkaline Phosphatase 51 U/L (35-105) 03/29/23 03:35 Troponin T Baseline 43 ng/L (0-10) H 03/28/23 12:17 Troponin T 120 Minute 40.91 ng/L (0-10) H 03/28/23 14:43 Delta Troponin T -2.09 ABS# (0-10) L 03/28/23 14:43 Troponin T Hi Sens 6Hr 41.85 ng/L (0-10) H 03/28/23 18:23 Troponin T Hi Sens 6Hr Delta -1.15 ng/L (0-12) L 03/28/23 18:23 C-Reactive Protein 3.0 mg/L (0.0-4.9) 03/28/23 06:24 NT-Pro-B Natriuret Pep 6838 pg/mL (0-450) H 03/31/23 04:57 Total Protein 6.2 g/dL (6.6-8.7) L 03/29/23 03:35 Albumin 3.9 g/dL (3.5-5.2) 03/29/23 03:35 Globulin 2.3 g/dL (1.3-4.6) 03/29/23 03:35 Procalcitonin 0.11 ng/mL (0-0.5) 03/28/23 01:55 Urine Color Yellow (Yellow) 03/28/23 02:11 Urine Appearance Hazy (CLEAR) A 03/28/23 02:11 Urine pH 5 (5-7) 03/28/23 02:11 Ur Specific [place] 1.020 (1.005-1.030) 03/28/23 02:11 Urine Protein Trace (Negative) 03/28/23 02:11 Urine Glucose (UA) Norm (Normal) 03/28/23 02:11 Urine Ketones 1+ (Negative) H 03/28/23 02:11 Urine Blood Neg (Negative) 03/28/23 02:11 Urine Nitrate Negative (Negative) 03/28/23 02:11 Urine Bilirubin 1+ (Negative) H 03/28/23 02:11 Urine Urobilinogen Norm mg/dL (Negative) 03/28/23 02:11 Ur Leukocyte Esterase Negative (Negative) 03/28/23 02:11 Urine RBC 0-4 /hpf (0-2) H 03/28/23 02:11 Urine WBC 0-4 /hpf (0-5) H 03/28/23 02:11 Ur Squamous Epith Cells 0-4 /hpf (0-5) H 03/28/23 02:11 Amorphous Sediment Not Reportable 03/28/23 02:11 Urine Bacteria 1+ /hpf (NONE) H 03/28/23 02:11 Hyaline Casts 0-4 /lpf H 03/28/23 02:11 Urine Mucus Trace /hpf 03/28/23 02:11 Adenovirus (PCR) Not detected (NOT DETECT) 03/28/23 09:45 C. pneumoniae DNA (PCR) Not detected (NOT DETECT) 03/28/23 09:45 Coronavirus 229E (PCR) Not detected (NOT DETECT) 03/28/23 09:45 Human Metapneumovir PCR Not detected (NOT DETECT) 03/28/23 09:45 Influenza A (H1) PCR Not detected (NOT DETECT) 03/28/23 09:45 Influ A (H1/09) PCR Not detected (NOT DETECT) 03/28/23 09:45 Influenza A (H3) PCR Not detected (NOT DETECT) 03/28/23 09:45 Influenza Type A Ag negative (Negative) 03/28/23 02:02 Influenza Type A (PCR) Not detected (NOT DETECT) 03/28/23 09:45 Influenza Type B Ag negative (Negative) 03/28/23 02:02 Influenza Type B (PCR) Not detected (NOT DETECT) 03/28/23 09:45 M. pneumoniae (PCR) Not detected (NOT DETECT) 03/28/23 09:45 Parainfluenza 1 (PCR) Not detected (NOT DETECT) 03/28/23 09:45 Parainfluenza 2 (PCR) Not detected (NOT DETECT) 03/28/23 09:45 Parainfluenza 3 (PCR) Not detected (NOT DETECT) 03/28/23 09:45 Parainfluenza 4 (PCR) Not detected (NOT DETECT) 03/28/23 09:45 RSV Type A (PCR) Not detected (NOT DETECT) 03/28/23 09:45 RSV Type B (PCR) Not detected (NOT DETECT) 03/28/23 09:45 Entero/Rhino (PCR) Not detected (NOT DETECT) 03/28/23 09:45 SARS-CoV-2 (PCR) Not detected (NOT DETECT) 03/28/23 09:45 SARS-CoV-2 Ag (Rapid) negative (Negative) 03/28/23 02:02 Vitals Last Vital Signs Temp 97.9 F 03/31/23 10:24 Pulse 85 03/31/23 10:24 Resp 18 03/31/23 10:24 BP 169/69 03/31/23 10:24 Pulse Ox 96 03/31/23 10:24 O2 Del Method Nasal Cannula 03/31/23 10:24 O2 Flow Rate 2 03/31/23 09:17 FiO2 30 03/31/23 04:19 Discharge Plan Discharge Patient Disposition: Home Condition: Stable Prescriptions: New prednisone 20 mg tablet See Rx Instructions .ROUTE .COMPLEX Qty: 20 0RF Rx Instructions: 3 tab daily for 3 days, then 2 tab for 3 days, then 1 tab for 3 days, then 1/2 tab for 4 days. linezolid 600 mg tablet 600 mg PO BID 4 Days Qty: 8 0RF cefdinir 300 mg capsule 300 mg PO BID 4 Days Qty: 8 0RF Continued mupirocin 2 % ointment 1 applic topical BID Qty: 22 1RF clotrimazole 1 % cream 1 applic topical BID 28 Days Qty: 45 0RF (DME) NEBULIZER TUBING Qty: 1 0RF Rx Instructions: As directed isosorbide mononitrate 30 mg tablet extended release 24 hr 30 mg PO QAM Qty: 90 2RF Plavix 75 mg tablet 75 mg PO QAM Qty: 90 1RF multivitamin Tablet 1 tab PO DAILY fluticasone propionate [Flonase Allergy Relief] 50 mcg/actuation spray,suspension 2 spray INTRANASAL DAILY PRN (Reason: Allergy Symptoms) Rx Instructions: administer into each nostril acetaminophen 325 mg Tablet 650 mg PO QID PRN (Reason: Pain) atorvastatin 40 mg tablet 40 mg PO DAILY albuterol sulfate 2.5 mg /3 mL (0.083 %) solution for nebulization 2.5 mg inhalation Q6H PRN (Reason: Shortness Of Breath Or Wheezing) Nitro-Time 2.5 mg capsule, extended release 2.5 mg PO BID hydralazine 25 mg tablet 25 mg PO TID Rx Instructions: TAKE 1 TABLET BY MOUTH THREE TIMES A DAY montelukast 10 mg tablet 10 mg PO DAILY Ventolin HFA 90 mcg/actuation HFA aerosol inhaler 2 puff inhalation Q6H PRN (Reason: Shortness Of Breath Or Wheezing) Rx Instructions: INHALE TWO PUFFS EVERY 6 HOURS NEEDED FOR SHORTNESS OF BREATH or wheezing metoprolol tartrate 25 mg tablet 25 mg PO BID Symbicort 160-4.5 mcg/actuation HFA aerosol inhaler 2 puff inhalation BID Changed amlodipine 5 mg tablet 10 mg PO DAILY Qty: 30 3RF Held lisinopril 10 mg tablet 10 mg PO DAILY Hold Instructions: Resume on 04/07/23. hydrochlorothiazide 25 mg tablet 25 mg PO DAILY Hold Instructions: Resume on 04/07/23. Discontinued sulfamethoxazole-trimethoprim [Bactrim DS] 800-160 mg tablet 1 tab PO BID 10 Days Qty: 20 0RF Discharge Orders: Discharge Order (Routine); Ordered 03/31/23 Ordered By: Gabino Moyer Other Ambulatory Orders: Sestamibi Stress Test Request (Routine) Timeframe: 1 Week Facility: [facility] - Location: Cardiac Diagnostic Laboratory Ordered By: Gabino Moyer Referrals: Nephrology [Provider Group] - 2 weeks (KAYLI on CKD, solitary kidney) Jhoana Gross DO [Primary Care Provider] - 4-7 days Discharge Diet: As Directed and Cardiac Discharge Activity: Increase activity as tolerated, Oxygen as instructed and Cpap/Bipap as instructed Patient Instructions: Prednisone (By mouth), Cefdinir (By mouth), Linezolid (By mouth), How to Stop Smoking (GEN), Cigarette Smoking and Your Health (GEN) Activity Restrictions/Additional Instructions: Please stop smoking, continue smoking will lead to progression of your COPD/lung disease, as well as progression of coronary disease, risk of heart attack, progression of carotid artery disease, stroke. Please hold lisinopril, HCTZ for now while your kidneys are recovering. Please follow-up with your primary doctor for reassessment of kidney function. Avoid any nephrotoxic medications. Avoid Bactrim. Avoid NSAIDs. Discussed with your primary doctor when it may be safe to resume lisinopril and HCTZ. Follow-up with your primary doctor regarding COPD exacerbation. Complete steroid taper. Continue oxygen at home chronic discussed target saturation 88-92%. Follow-up with your primary doctor regarding coronary disease. Follow-up with stress test and follow-up with your primary doctor regarding results. Follow-up with your primary provider for further consideration of management of carotid artery disease. Please stop smoking. Continue heart healthy diet, limit potassium intake, avoid foods overly rich in potassium. Discharge Attestations Time Spent in Discharge Care*: greater than 30 min Quality Metrics Clinical Quality Measures [ No reported AMI, CVA or VTE this stay] Coding Level of Care Code 29579 Total time (in minutes) for Discharge: 45 Diagnoses Acute hyperkalemia E87.5 Acute kidney injury N17.9
--- NOTE | 2023-03-31 15:53 | PC.NURSE ---
Discharge instructions given to pt and daughter. NO questions or concerns at this time. Pt has voided since mims was removed. Pt to private vehicle via wheelchair with her own oxygen tank. All belongings with pt.
== END 2023-03-31 15:56 | disposition home or self-care (01) | DRG 189 ==
LOC: ER 04:24 → ICU 06:17 → MEDSURG 03-30 16:20
PROVIDERS: Family Medicine; Physician Assistant; Admitting Provider Student in an Organized Health Care Education/Training Program; Emergency Provider Emergency Medicine; PCP Family Medicine; Visit Provider Internal Medicine
DX: J96.22 Acute and chronic respiratory failure with hypercapnia (principal); I50.43 Acute on chronic combined systolic (congestive) and diastolic (congestive) heart failure; J44.1 Chronic obstructive pulmonary disease with (acute) exacerbation; I13.0 Hypertensive heart and chronic kidney disease with heart failure and stage 1 through stage 4 chronic kidney disease, or unspecified chronic kidney disease; N17.9 Acute kidney failure, unspecified; L03.115 Cellulitis of right lower limb; J96.21 Acute and chronic respiratory failure with hypoxia; F17.210 Nicotine dependence, cigarettes, uncomplicated; N18.9 Chronic kidney disease, unspecified; R77.8 Other specified abnormalities of plasma proteins; E87.5 Hyperkalemia; R00.1 Bradycardia, unspecified; I25.10 Atherosclerotic heart disease of native coronary artery without angina pectoris; Z89.512 Acquired absence of left leg below knee; Z99.81 Dependence on supplemental oxygen; I73.9 Peripheral vascular disease, unspecified; Z95.5 Presence of coronary angioplasty implant and graft; Z99.89 Dependence on other enabling machines and devices
CPT/HCPCS: 36415; 36600; 51702; 71045; 76770; 80048; 80053; 81001; 82803; 83605; 83880; 84145; 84484; 85025; 85378; 86140; 87040; 87426; 87486; 87581; 87633; 87804; 93005; 93306; 93971; 94640; 94660; 94664; 96372; 96374; 96375; 96376; 99291; J0456; J0610; J0612; J0696; J1650; J1815; J1940; J2020; J2920; J2930; J7030; J7050; J7613; J7626; Q3014

== ENCOUNTER → 2023-04-20 11:57 | Outpatient (BNVA) | payer MEDICARE, OTHER, SELFPAY | PROVIDERS: PCP Family Medicine; Visit Provider Family Medicine | DX: J43.1 Panlobular emphysema (principal); G25.0 Essential tremor; N17.9 Acute kidney failure, unspecified | CPT/HCPCS: 80053 ==

== ENCOUNTER 2023-05-21 12:03 | Inpatient (IN) | payer MEDICARE, OTHER, SELFPAY ==
[2023-05-21] VITALS (14 sets, daily range): BP systolic 117–141; BP diastolic 46–82; PULSE 65–103; RESP 14–24; TEMP 36.6–36.9; O2SAT 92–99; BMI 26.5; BMI 28.9
--- NOTE | 2023-05-21 12:17 | ECG_ITS ---
[facility] Test Date: 2023-05-21 Pat Name: Bridgette Malik Department: Room: Gender: Female [employer]: : 1945 Requested By: Colette Schreiber Order Number: [id number] Sanjay MD: Gayle Valdovinos M.D. Measurements Intervals [place] Rate: 105 P: 0 [place]: 0 QRS: 248 QRSD: 122 T: 97 QT: 391 QTc: 518 Interpretive Statements ATRIAL FIBRILLATION WITH RAPID VENTRICULAR RESPONSE WITH ABERRANT CONDUCTION OR VENTRICULAR PREMATURE COMPLEXES RIGHT AXIS DEVIATION [QRS AXIS > 100] ANTEROSEPTAL MYOCARDIAL INFARCTION , OF INDETERMINATE AGE [40+ ms Q WAVE IN V1-V4] Compared to ECG 03/28/2023 14:13:19 Ventricular premature complex(es) now present Aberrant conduction of supraventricular beat(s) now present Right-axis deviation now present Supraventricular rhythm no longer present Myocardial infarct finding still present Electronically Signed On 05-21-2023 17:42:53 LATHE TENDER by Gayle Valdovinos M.D. [email or web address]
--- NOTE | 2023-05-21 12:17 | XR_ITS ---
WS: [id number] Portable AP upright chest, 05/21/2023 Clinical Data: sob Comparison: Portable chest, 03/28/2023 Findings: No nodules or masses are seen. The heart is normal. There is a small right pleural effusio n and a patchy opacity superior to the effusion which could represent atelectasis and/or pneumonia. T he pulmonary vascularity is not increased. No pneumothorax is seen. The aortic arch and descending t horacic aorta show calcification and tortuosity. There are monitor leads on the chest wall. Impression: 1. Minimal right lower lobe patchy opacity which could represent atelectasis and/or pneumonia with sm all right effusion. 2. Atherosclerosis.
--- NOTE | 2023-05-21 12:18 | ED_ITS ---
HPI - SOB/Dyspnea 2 General: Chief Complaint: Shortness of Breath/Dyspnea Stated Complaint: sob Time Seen by Provider: 05/21/23 12:14 Source: patient and EMS Mode of arrival: EMS Limitations: no limitations History of Present Illness: HPI Narrative: 78-year-old female who has multiple medi jaguar issues she has a history of COPD CHF she has been treated for cellulitis to her right lower leg she states she has had increasing shortness of breath patient wears 3 to 4 L of oxygen at home she received a breathing treatment and route and is currently on 3 L in the room. She has a chronic cough denies any new cough she denies any fever pain states she has felt just sick. Associated symptoms: Deny abdominal pain, chest pain, fever(s), nausea or vomiting Review of Systems 2 Const: Denies: fever(s), chills, body aches or change in appetite ENMT: Denies: throat pain or dental pain Card: Denies: chest pain Resp: Reports: dyspnea and non-productive cough GI: Denies: abdominal pain, nausea, vomiting or diarrhea Musc: Denies: neck pain or back pain Skin/Breast: Reports: erythema; Denies: rash Neuro: Denies: headache(s) PFSH ED 2 PFSH: Medical History Panic attacks Skin lesion Single kidney PAD (peripheral artery disease) Aneurysm of aorta COPD (chronic obstructive pulmonary disease) Old [place] (myocardial infarction) HTN (hypertension) Acute on chronic combined systolic (congestive) and diastolic (congestive) heart failure ASHD (arteriosclerotic heart disease) Ischemic cardiomyopathy Mitral regurgitation Sleep apnea CKD (chronic kidney disease) Dyslipidemia Bilateral carotid artery occlusion Anemia, deficiency Bilateral carotid bruits Acquired hallux rigidus of left foot Vasculopathy Non-functioning kidney Neuropathic pain of left lower extremity GERD (gastroesophageal reflux disease) 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 coli infection History of stent insertion of renal artery X 3 LEFT KIDNEY Surgical History Presence of stent in coronary artery History of hysterectomy History of AAA (abdominal aortic aneurysm) repair 06/2015 S/P amputation H/O breast surgery H/O facial fracture repair H/O cataract extraction Family History Father CAD (coronary artery disease) Social History Smoking and tobacco/nicotine status: current every day tobacco/nicotine user cigarettes Packs smoked per day: 0.5 (PPD) Quit status (tobacco/nicotine): not considering quitting Second hand smoke exposure: Yes Alcohol intake: current Alcohol intake frequency: holidays/special occasions only Substance/Drug Use: never Physical Exam 2 Const: COMMON NORMALS: patient oriented x3 GENERAL APPEARANCE: ill appearing HENMT: COMMON NORMALS: normocephalic and atraumatic HEAD & SCALP: n ormocephalic and atraumatic Neck/C-Spine: COMMON NORMALS: full ROM and supple Chest: COMMONS NORMALS: normal inspection of the chest and normal palpation of entire chest wall Resp: EFFORT & INSPECTION: Yes tachypneic AUSCULTATION: wheezes Cardio: COMMON NORMALS: regular rate, regular rhythm and No murmurs present (Cardio) RATE: regular rate RHYTHM: regular rhythm GI: COMMON NORMALS: Normal to inspection, nondistended, normoactive bowel sounds present, Soft to palpation, non-tender and no masses PALPATION: Yes Soft to palpation Extremity: COMMON NORMALS: full ROM NARRATIVE EXTREMITY EXAM: Slight erythema to right leg Neuro: COMMON NORMALS: patient oriented x3, moves all extremities and no focal motor deficits Psych: COMMON NORMALS: mental status grossly normal, Normal thought process present and cooperative THOUGHT PROCESS: Normal thought process present Skin: COMMON NORMALS: no rashes or lesions noted and no wounds GENERAL SKIN EXAM: no rashes or lesions noted Course 2 Vital Signs: Vital signs: Vital Signs Temperature 98.3 F 05/21/23 12:06 Pulse Rate 82 05/21/23 13:43 Respiratory Rate 17 05/21/23 13:43 Blood Pressure 139/46 05/21/23 12:52 Pulse Oximetry 98 05/21/23 13:43 Oxygen Delivery Me thod Nasal Cannula 05/21/23 12:06 Oxygen Flow Rate 3 05/21/23 12:06 Fraction of Inspir ed Oxygen 40 05/21/23 13:17 MDM - SOB/Dyspnea Medical Decision Making Patient presents here with shortness of breath with increased cough x-ray here shows likely pneumonia and pleural effusion and she has a slight elevated white count she was in quite a bit of distress here she is placed on BiPAP I spoke to the hospitalist and will admit at this time. Medical Records I reviewed the patient's medical records. Lab Data I reviewed the patient's lab results. 05/21/23 13:02 05/21/23 13:02 Labs/Radiology: Laboratory Results WBC 12.60 10^3/uL (3.29-11.43) H 05/21/23 13:02 RBC 3.45 10^6/uL (3.85-5.65) L 05/21/23 13:02 Hgb 9.70 g/dL (11.27-16.99) L 05/21/23 13:02 Hct 32.9 % (36-47) L 05/21/23 13:02 MCV 95.4 fl (85-98) 05/21/23 13:02 MCH 28.1 pg (27-33) 05/21/23 13:02 MCHC 29.5 g/dL (30-55) L 05/21/23 13:02 RDW 13.5 % (12.1-15.1) 05/21/23 13:02 Plt Count 231 10^3/cmm (157-399) 05/21/23 13:02 MPV 10.1 fL (7.4-10.4) 05/21/23 13:02 Neut % (Auto) 80.8 % 05/21/23 13:02 Lymph % (Auto) 11.7 % 05/21/23 13:02 Dukes % (Auto) 6.2 % 05/21/23 13:02 Eos % (Auto) 0.4 % 05/21/23 13:02 Baso % (Auto) 0.4 % 05/21/23 13:02 Neut # (Auto) 10.19 10^3/uL (1.8-7.7) H 05/21/23 13:02 Lymph # (Auto) 1.5 10^3/uL (0.8-4.8) 05/21/23 13:02 Dukes # (Auto) 0.8 10^3/uL (0.2-0.9) 05/21/23 13:02 Eos # (Auto) 0.1 10^3/uL (0.0-0.8) 05/21/23 13:02 Baso # (Auto) 0.1 10^3/uL (0.0-0.1) 05/21/23 13:02 Nucleated RBC % (auto) 0 % 05/21/23 13:02 Nucleated RBCs # 0.0 /100WBC 05/21/23 13:02 PT 13.30 SECONDS (12.1-14.9) 05/21/23 13:02 INR 0.98 (0.8-1.2) 05/21/23 13:02 Specimen Type Arterial 05/21/23 12:20 Sample Site Radial, left 05/21/23 12:20 ABG pH 7.36 (7.35-7.45) 05/21/23 12:20 ABG pCO2 62.6 mmHg (35-45) H* 05/21/23 12:20 ABG pO2 58.0 mmHg (80.0-100.0) L 05/21/23 12:20 ABG PO2/FiO2 Ratio 0 05/21/23 12:20 ABG HCO3 35.2 mmol/L (22-26) H 05/21/23 12:20 ABG Base Excess 8.2 mmol/L (-2.0-2.0) H 05/21/23 12:20 Jean Test Pos 05/21/23 12:20 Hematocrit 30.6 % (37-47) L 05/21/23 12:20 Hgb O2 Saturation 89.5 % (95-100) L 05/21/23 12:20 Carboxyhemoglobin 1.8 %THgb (0.4-20.1) 05/21/23 12:20 Methemoglobin 0.7 % (0.4-1.5) 05/21/23 12:20 Total Hemoglobin 10.0 g/dL (12-16) L 05/21/23 12:20 O2 Delivery Device Nc 05/21/23 12:20 O2 Liters/Min 4.0 % 05/21/23 12:20 FiO2 36.0 % 05/21/23 12:20 Animal Caregiver ID Cak 05/21/23 12:20 Sodium 138 mmol/L (136-145) 05/21/23 13:02 Potassium 5.0 mmol/L (3.5-5.1) 05/21/23 13:02 Chloride 96 mmol/L (98-107) L 05/21/23 13:02 Carbon Dioxide 34 mmol/L (22-29) H 05/21/23 13:02 Anion Gap 13.0 (5-19) 05/21/23 13:02 BUN 20 mg/dL (8-23) 05/21/23 13:02 Creatinine 0.8 mg/dL (0.5-0.9) 05/21/23 13:02 GFR Calculation Not Reportable 05/21/23 13:02 Glucose 114 mg/dL (65-115) 05/21/23 13:02 Calculated Osmolality 289 mOsm/kg (285-295) 05/21/23 13:02 Calcium 9.2 mg/dL (8.5-10.5) 05/21/23 13:02 Total Bilirubin 0.2 mg/dL (0.15-1.2) 05/21/23 13:02 AST 13 U/L (0-32) 05/21/23 13:02 ALT 10 U/L (0-33) 05/21/23 13:02 Alkaline Phosphatase 57 U/L (35-105) 05/21/23 13:02 NT-Pro-B Natriuret Pep 2656 pg/mL (0-450) H 05/21/23 13:02 Total Protein 6.5 g/dL (6.6-8.7) L 05/21/23 13:02 Albumin 3.7 g/dL (3.5-5.2) 05/21/23 13:02 Globulin 2.8 g/dL (1.3-4.6) 05/21/23 13:02 Influenza Type A Ag negative (Negative) 05/21/23 12:34 Influenza Type B Ag negative (Negative) 05/21/23 12:34 SARS-CoV-2 Ag (Rapid) negative (Negative) 05/21/23 12:34 All radiology interpretation(s) finalized by discharge Critical Care Time 2 Critical Care Time: Critical Care Time: Yes Total Critical Care Time: 40 Attestation: The high probability of a clinically significant, sudden or life threatening deterioration of the patient's resp system(s) required my full and direct attention, intervention and personal management. The critical care time is as shown. This time is in addition to time spent performing any reported procedures but includes the following: [x] Data and vital sign review and interpretation [x] Patient assessment, examination and intervention [x] Documentation [x] Medication orders and management Discharge Plan Discharge Patient Disposition: Admitted As Inpatient Clinical Impression: Pneumonia, Acute respiratory failure with hypoxia Condition: Stable Prescriptions: No Action fluticasone propion-salmeterol [Advair Diskus] 250-50 mcg/dose blister with device 1 inh inhalation BID Qty: 60 5RF Plavix 75 mg tablet 75 mg PO QAM Qty: 90 1RF clindamycin HCl 150 mg capsule 150 mg PO BID 10 Days Qty: 20 0RF Rx Instructions: for 10 days (rx filled 05/11/23) (DME) NEBULIZER TUBING Qty: 1 0RF Rx Instructions: As directed isosorbide mononitrate 30 mg tablet extended release 24 hr 30 mg PO QAM Qty: 90 2RF (DME) CPAP set to 6-16 with mask and supplies See Rx Instructions .Route .MEDSUPPLY Qty: 1 0RF Rx Instructions: As directed multivitamin Tablet 1 tab PO DAILY fluticasone propionate [Flonase Allergy Relief] 50 mcg/actuation spray,suspension 2 spray INTRANASAL DAILY PRN (Reason: Allergy Symptoms) Rx Instructions: administer into each nostril atorvastatin 40 mg tablet 40 mg PO BEDTIME nitroglycerin [Nitro-Time] 2.5 mg capsule, extended release 2.5 mg PO DAILY PRN (Reason: chest pains) hydralazine 25 mg tablet 25 mg PO TID hydrochlorothiazide 25 mg tablet 25 mg PO DAILY Hold Instructions: Resume on 04/07/23. Rx Instructions: on hold per daughter 05/21/23 albuterol sulfate 2.5 mg /3 mL (0.083 %) solution for nebulization 2.5 mg inhalation QID PRN (Reason: Shortness Of Breath Or Wheezing) Ventolin HFA 90 mcg/actuation HFA aerosol inhaler 2 puff inhalation Q6H PRN (Reason: Shortness Of Breath) Tylenol Ex Str Rapid Release 500 mg Tablet 1,000 mg PO BEDTIME primidone 50 mg tablet 25 mg PO BEDTIME amlodipine 5 mg tablet 5 mg PO QAM montelukast 10 mg tablet 10 mg PO BEDTIME lisinopril 5 mg tablet 5 mg PO QAM metoprolol tartrate 25 mg tablet 25 mg PO BID Referrals: Jhoana Gross DO [Primary Care Provider] - Coding Level of Care Code ED Chemical Processing Equipment Repairer for Jr Alexander
[2023-05-21 12:32] LABS: ABG PCO2 62.6 mmHg (35-45); ABG PH Result 7.36 (7.35-7.45); Arterial Blood Gas Hematocrit 30.6 % (37-47); Base Excess ABG 8.2 mmol/L (-2.0-2.0); Blood Gas Allen Test Pos; Blood Gas Operator Identificat CAK; Blood Gas Sample Site Radial, left; Blood Gas Sample Type Arterial; Carboxyhemoglobin 1.8 %THgb (0.4-20.1); HCO3 ABG 35.2 mmol/L (22-26); HGB O2 Sat 89.5 % (95-100); Methemoglobin 0.7 % (0.4-1.5); Oxygen Device NC; PO2 FiO2 Ratio Arterial Blood 0
[2023-05-21] MEDS: methylPREDNISolone sod succ 125 mg/2 mL INJ IV (12:49)
[2023-05-21 13:00] LABS: Influenza A by IFA negative (Negative); Influenza B by IFA negative (Negative)
[2023-05-21 13:02] LABS: SARS Covid-2 Antigen negative (Negative)
[2023-05-21] MEDS: cefTRIAXone 1,000 MG in sodium chloride 0.9% (plus) 50 ML 100 MG IV (13:06)
[2023-05-21 13:12] LABS: Basophils # 0.1 10^3/uL (0.0-0.1); Basophils % 0.4 %; Eosinophils # 0.1 10^3/uL (0.0-0.8); Eosinophils % 0.4 %; Hematocrit 32.9 % (36-47); Lymphocytes # 1.5 10^3/uL (0.8-4.8); Lymphocytes % 11.7 %; Mean Corpuscular HGB Conc 29.5 g/dL (30-55); Mean Corpuscular Hemoglobin 28.1 pg (27-33); Mean Corpuscular Volume 95.4 fl (85-98); Mean Platelet Volume 10.1 fL (7.4-10.4); Monocytes # 0.8 10^3/uL (0.2-0.9); Monocytes % 6.2 %; Neutrophils # 10.19 10^3/uL (1.8-7.7); Neutrophils % 80.8 %; Nucleated Red Blood Cells % 0 %; Platelet Count 231 10^3/cmm (157-399); Red Blood Count 3.45 10^6/uL (3.85-5.65); Red Cell Distribution Width 13.5 % (12.1-15.1)
--- NOTE | 2023-05-21 13:21 | PC.PHAR ---
pt and pts daughter verified pts medications-pts daughter darius states the pt takes nitro-time 2.5mg daily prn chest pains rx filled 02/22/23 30d/s 2.5mg bid-pts daughter states the pts hctz 25mg daily was put on hold in mar 2023 states pt not taken since sometime in mar 2023-pts daughter states the pt only has the albuterol inhaler and advair diskus states the pt no longer uses the symbicort 160-4.5 2 p bid filled 04/16/23-
[2023-05-21 13:27] LABS: INR 0.98 (0.8-1.2)
[2023-05-21 13:42] LABS: Alanine Aminotransferase 10 U/L (0-33); Albumin Level 3.7 g/dL (3.5-5.2); Alkaline Phosphatase 57 U/L (35-105); Aspartate Amino Transferase 13 U/L (0-32); Blood Urea Nitrogen 20 mg/dL (8-23); Calcium 9.2 mg/dL (8.5-10.5); Carbon Dioxide 34 mmol/L (22-29); Chloride 96 mmol/L (98-107); Creatinine Clr Calc Pharmacy 51.9346; Globulin 2.8 g/dL (1.3-4.6); Glucose 114 mg/dL (65-115); NT Pro B Type Natriuretic Pept 2656 pg/mL (0-450); Osmolality Calculated 289 mOsm/kg (285-295); Sodium 138 mmol/L (136-145); Total Bilirubin 0.2 mg/dL (0.15-1.2); Total Protein 6.5 g/dL (6.6-8.7)
[2023-05-21] MEDS: azithromycin 500 MG in sodium chloride 0.9% 250 ML 250 MG IV (13:42)
[2023-05-21 14:22] LABS: C Reactive Protein 4.7 mg/L (0.0-4.9); Troponin(5th) Baseline 48 ng/L (0-10)
[2023-05-21 14:30] LABS: Procalcitonin 0.07 ng/mL (0-0.5)
--- NOTE | 2023-05-21 14:40 | ECG_ITS ---
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 Measurements Intervals [place] Rate: 84 P: 91 ND: 166 QRS: 250 QRSD: 124 T: 54 QT: 384 QTc: 454 Interpretive Statements SINUS RHYTHM WITH OCCASIONAL SUPRAVENTRICULAR PREMATURE COMPLEXES ARM LEADS REVERSED [INVERTED P AND QRS IN I] Compared to ECG 05/21/2023 12:24:34 Atrial fibrillation no longer present Ventricular premature complex(es) no longer present Aberrant conduction of supraventricular beat(s) no longer present Right-axis deviation no longer present Myocardial infarct finding no longer present Electronically Signed On 05-21-2023 17:44:06 DRAFTER DETAIL by Galye Valdovinos M.D. [id number]
--- NOTE | 2023-05-21 14:50 | XRR_ITS ---
PROCEDURE INFORMATION: Exam: XR Right Tibia and Fibula Exam date and time: 05/21/2023 4:43 PM Age: 78 years old Clinical indication: Swelling, leg or foot TECHNIQUE: Imaging protocol: Radiologic exam of the right tibia and fibula. Views: 2 views. COMPARISON: No relevant prior studies available. FINDINGS: Bones/joints: No fracture or dislocation. Soft tissues: Nonspecific lower extremity swelling/edema. XR/XR tibia fibula RT 2V 70072 IMPRESSION: No acute findings.
--- NOTE | 2023-05-21 14:50 | USCV_ITS ---
Bridgette Malik Age: 78 Gender: F : 1945 Exam Date: 05/21/2023 15:11 Ordering Phys: Kobi Thakkar MD Technologist: LIS [place] [facility] [place]: RLE PAIN AND DISCOLORATION HISTORY: Lower extremity edema. Lower extremity pain. PROCEDURES: Venous duplex imaging was performed in only the right lower extremity. The following venous structures were evaluated: common femoral vein, profunda vein, proximal portion of the greater saphenous vein, superficial femoral vein, and the popliteal vein. In addition, the posterior tibial and peroneal trunk were evaluated. Serial compression, augmentation maneuvers, and spectral Doppler flow evaluation were performed. FINDINGS: No evidence of DVT seen in any vessel visualized at this time. Edema seen in Right Lower Leg CONCLUSIONS No evidence of right lower extremity DVT. Ricardo Cummings MD (Electronically Signed) Final Date: 21 May 2023 16:12 S
--- NOTE | 2023-05-21 14:52 | PM.HP ---
Providers/Chief Complaint Primary Care Provider: Jhoana Gross DO Chief Complaint: sob History of Present Illness Bridgette Malik is a 78 year old female with past medical history of COPD, active smoker, on CPAP at home, history of systolic diastolic CHF, history of NSTEMI, history of left BKA, hypertension, hyperlipidemia, who presents [facility] for shortness of breath and right lower extremity erythema and swelling. Currently patient is on BiPAP, daughter is at bedside, she tells me that she is here in the hospital because she feels short of breath, but is more comfortable on BiPAP is compliant with CPAP at home, daughter tells me that for the last few days, her right lower extremity has become more swollen erythematous, with active drainage, she is worried about recurrent cellulitis, patient does report anterior chest pain, nonradiating, associate with shortness of breath, no fevers, chills but does report a productive cough Review of Systems Const: Reports: fatigue and malaise; Denies: fever(s) or chills Card: Reports: chest pain Resp: Reports: dyspnea GI: Denies: abdominal pain : Denies: flank pain Medications/Allergies Home Medications Medication Instructions Recorded Confirmed Last Taken Type NEBULIZER TUBING #1 ea 07/07/19 05/21/23 Unknown Rx fluticasone propionate 50 2 spray intranasal DAILY PRN 04/23/21 05/21/23 Unknown History mcg/actuation nasal Allergy Symptoms spray,suspension (Flonase Allergy Relief) multivitamin 1 tab PO DAILY 04/23/21 05/21/23 03/27/23 History isosorbide mononitrate 30 mg 30 mg PO QAM #90 tabs 11/25/22 05/21/23 03/27/23 Rx tablet,extended release 24 hr atorvastatin 40 mg tablet 40 mg PO BEDTIME 03/28/23 05/21/23 05/20/23 History hydralazine 25 mg tablet 25 mg PO TID 03/28/23 05/21/23 05/21/23 History hydrochlorothiazide 25 mg tablet 25 mg PO DAILY 03/28/23 05/21/23 03/27/23 History nitroglycerin 2.5 mg 2.5 mg PO DAILY PRN chest pains 03/28/23 05/21/23 03/27/23 History capsule,extended release (Nitro-Time) fluticasone 250 mcg-salmeterol 50 1 inh inhalation BID #60 ea 04/20/23 05/21/23 Unknown Rx mcg/dose blistr powdr for inhalation (Advair Diskus) CPAP set to 6-16 with mask and #1 ea 04/23/23 05/21/23 Unknown Rx supplies clindamycin HCl 150 mg capsule 150 mg PO BID 10 days #20 caps 05/11/23 05/21/23 05/20/23 Rx finished 05/20/23 clopidogrel 75 mg tablet (Plavix) 75 mg PO QAM #90 tabs 05/20/23 05/21/23 05/21/23 Rx acetaminophen 500 mg tablet 1,000 mg PO BEDTIME 05/21/23 05/21/23 05/20/23 History albuterol sulfate 2.5 mg/3 mL 2.5 mg inhalation QID PRN 05/21/23 05/21/23 Unknown History (0.083 %) solution for nebulization Shortness Of Breath Or Wheezing albuterol sulfate 90 mcg/actuation 2 puff inhalation Q6H PRN 05/21/23 05/21/23 Unknown History aerosol inhaler (Ventolin HFA) Shortness Of Breath amlodipine 5 mg tablet 5 mg PO QAM 05/21/23 05/21/23 05/21/23 History lisinopril 5 mg tablet 5 mg PO QAM 05/21/23 05/21/23 05/21/23 History metoprolol tartrate 25 mg tablet 25 mg PO BID 05/21/23 05/21/23 05/21/23 History montelukast 10 mg tablet 10 mg PO BEDTIME 05/21/23 05/21/23 05/20/23 History primidone 50 mg tablet 25 mg PO BEDTIME 05/21/23 05/21/23 05/20/23 History Allergies Allergy/AdvReac Type Severity Reaction Status Date / Time sulfamethoxazole Allergy Unknown Verified 05/21/23 13:20 [From Bactrim] trimethoprim [From Bactrim] Allergy Unknown Verified 05/21/23 13:20 PFSH Acute PFSH: Medical History Panic attacks Skin lesion Single kidney PAD (peripheral artery disease) Aneurysm of aorta COPD (chronic obstructive pulmonary disease) Old [place] (myocardial infarction) HTN (hypertension) Acute on chronic combined systolic (congestive) and diastolic (congestive) heart failure ASHD (arteriosclerotic heart disease) Ischemic cardiomyopathy Mitral regurgitation Sleep apnea CKD (chronic kidney disease) Dyslipidemia Bilateral carotid artery occlusion Anemia, deficiency Bilateral carotid bruits Acquired hallux rigidus of left foot Vasculopathy Non-functioning kidney Neuropathic pain of left lower extremity GERD (gastroesophageal reflux disease) 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 coli infection History of stent insertion of renal artery X 3 LEFT KIDNEY Surgical History Presence of stent in coronary artery History of hysterectomy History of AAA (abdominal aortic aneurysm) repair 06/2015 S/P amputation H/O breast surgery H/O facial fracture repair H/O cataract extraction Family History Father CAD (coronary artery disease) Social History Smoking and tobacco/nicotine status: current every day tobacco/nicotine user cigarettes Packs smoked per day: 0.5 (PPD) Quit status (tobacco/nicotine): not considering quitting Second hand smoke exposure: Yes Alcohol intake: current Alcohol intake frequency: holidays/special occasions only Substance/Drug Use: never Vitals/I&O/Wt Last Vital Signs Temp 98.3 F 05/21/23 12:06 Pulse 79 05/21/23 14:50 Resp 18 05/21/23 14:50 BP 141/50 05/21/23 14:50 Pulse Ox 99 05/21/23 14:50 O2 Del Method Nasal Cannula 05/21/23 12:06 O2 Flow Rate 3 05/21/23 12:06 FiO2 40 05/21/23 13:17 05/20/23 05/21/23 05/21/23 22:59 06:59 14:59 Intake Total 50 / 50 Balance 50 / 50 Weight last 48 hrs Weight 68.039 kg Physical Exam Const: COMMON NORMALS: no acute distress and patient oriented x3 HENMT: COMMON NORMALS: normocephalic HEAD & SCALP: normocephalic Eye: COMMON NORMALS: Equal, round and reactive pupils present and EOMs intact bilaterally Neck/C-Spine: COMMON NORMALS: no JVD Lymph: LYMPHATIC: no lymphadenopathy noted Resp: COMMON NORMALS: normal respiratory effort, No retractions and No use of accessory muscles AUSCULTATION: crackles and wheezes Cardio: COMMON NORMALS: regular rate, regular rhythm, S1 normal heart sound present and S2 normal heart sound present RATE: regular rate RHYTHM: regular rhythm HEART SOUNDS: S1 normal heart sound present and S2 normal heart sound present GI: COMMON NORMALS: Normal to inspection, nondistended, normoactive bowel sounds present, Soft to palpation and non-tender : COMMON NORMALS: Yes no CVA tenderness Extremity: NARRATIVE EXTREMITY EXAM: Right lower extremity swelling, erythema, tenderness throughout the calf, Neuro: COMMON NORMALS: patient oriented x3, CN's II-XII intact bilaterally and moves all extremities Psych: COMMON NORMALS: mental status grossly normal Skin: OTHER: Left BKA site looks clean and dry ? Right lower extremity swollen, erythematous, nonpitting edema Data 05/21/23 13:02 05/21/23 13:02 Micro: Microbiology 05/21/23 13:02 Blood Culture - Preliminary Blood SPECIMEN COLLECTED 05/21/23 12:34 Blood Culture - Preliminary Blood SPECIMEN COLLECTED A&P Assessment and plan (1) Acute respiratory failure with hypoxia: (2) Acute on chronic combined systolic (congestive) and diastolic (congestive) heart failure: (3) Coronary artery disease with angina pectoris: (4) PAD (peripheral artery disease): (5) Dyslipidemia: (6) Cellulitis of right lower extremity: (7) COPD exacerbation: (8) Edema of right lower extremity: (9) Cellulitis: Plan Acute hypoxic respiratory failure ? Secondary to systolic diastolic CHF exacerbation ? COPD exacerbation ? Plan ? Continue BiPAP ? Solu-Medrol 40 mg IV push every 8 hours ? Monitor respiratory status closely ? Sputum cultures, blood cultures, respiratory viral panel ? Lasix 40 mg IV twice daily COPD exacerbation, as above does report smoking cigarettes regularly, Systolic diastolic CHF exacerbation ? Fluid restrictions at 1000 cc ? Monitor creatinine, monitor urine output monitor potassium Right lower extremity cellulitis ? X-ray ? Venous ultrasound ? Zyvox, cefepime Left BKA CAD, with complaints of chest pain Serial EKGs, serial troponins, telemetry monitoring History of CKD, monitor urine output monitor creatinine DNR/DNI ? Lovenox for DVT prophylaxis Attestations Medical Necessity Statement*: Patient requires hospitalization, for acute respiratory failure, fluid overload, right lower extremity cellulitis, COPD exacerbation, systolic diastolic CHF exacerbation, inpatient greater than 2 midnights Diagnoses Acute respiratory failure with hypoxia J96.01 Acute on chronic combined systolic (congestive) and diastolic (congestive) heart failure I50.43 Coronary artery disease with angina pectoris I25.119 PAD (peripheral artery disease) I73.9 Dyslipidemia E78.5 Cellulitis of right lower extremity L03.115 COPD exacerbation J44.1 Edema of right lower extremity R60.0 Cellulitis L03.90
--- NOTE | 2023-05-21 16:00 | ECG_ITS ---
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 Measurements Intervals [place] Rate: 77 P: 94 DE: 163 QRS: -77 QRSD: 138 T: 90 QT: 410 QTc: 466 Interpretive Statements SINUS RHYTHM LEFT AXIS DEVIATION [QRS AXIS < -30] INTRAVENTRICULAR CONDUCTION DELAY [130+ ms QRS DURATION] POSSIBLE ANTERIOR MYOCARDIAL INFARCTION , OF INDETERMINATE AGE [30 ms Q WAVE IN V3/V4, OR R < 0.2 mV IN V4] Compared to ECG 05/21/2023 14:40:31 Left-axis deviation now present Intraventricular conduction delay now present Myocardial infarct finding now present Electronically Signed On 05-21-2023 18:04:32 FURNITURE RENTAL CONSULTANT by Gayle Valdovinos M.D. [id number]
[2023-05-21 16:03] LABS: Adenovirus Not Detected (NOT DETECT); Chlamydia Pneumoniae Not Detected (NOT DETECT); Coronavirus 229E,HKU1,NL63,OC4 Not Detected (NOT DETECT); Human Metapneumovirus Not Detected (NOT DETECT); Human Rhinovirus/Enterovirus Not Detected (NOT DETECT); Influenza A Not Detected (NOT DETECT); Influenza A H1 Not Detected (NOT DETECT); Influenza A H1-2009 Not Detected (NOT DETECT); Influenza A H3 Not Detected (NOT DETECT); Influenza B Not Detected (NOT DETECT); Mycoplasma Pneumoniae Not Detected (NOT DETECT); Parainfluenza Virus Type 1 Not Detected (NOT DETECT); Parainfluenza Virus Type 2 Not Detected (NOT DETECT); Parainfluenza Virus Type 3 Not Detected (NOT DETECT); Parainfluenza Virus Type 4 Not Detected (NOT DETECT); Respiratory Syncytial Virus A Not Detected (NOT DETECT); Respiratory Syncytial Virus B Not Detected (NOT DETECT); SARS-COV-2 Not Detected (NOT DETECT)
[2023-05-21] MEDS: pantoprazole 40 mg SDV IVP (16:18)
[2023-05-21] MEDS: FUROsemide 10 mg/mL SDV 4mL 40 MG IVP (16:18)
[2023-05-21] MEDS: enoxaparin 40 mg/0.4 mL Syringe SUBCUT (16:19)
[2023-05-21] MEDS: linezolid premix 600 MG/300 ML PREMIX 300 MG IV (16:19)
[2023-05-21 16:20] LABS: Erythrocyte Sedimentation Rate 5 mm/hr (0-15)
[2023-05-21 17:18] LABS: Troponin 5 2HR 45.86 ng/L (0-10)
[2023-05-21 17:19] LABS: Troponin 5 2HR Delta -2.14 ABS# (0-10)
[2023-05-21 17:20] LABS: Lactic Sepsis W/Reflex 1.9 mmol/L (0.5-2.2)
[2023-05-21 17:30] LABS: Thyroid Stimulating Hormone 1.65 uIU/mL (0.27-4.20)
[2023-05-21] MEDS: metoprolol tartrate 25 mg Tablet PO (17:57)
[2023-05-21 19:51] LABS: Troponin 5 6HR 48.68 ng/L (0-10); Troponin 5 6HR Delta 0.68 ng/L (0-12)
[2023-05-21] MEDS: atorvastatin 40 mg Tablet PO (20:42)
[2023-05-21] MEDS: cefepime 1,000 MG in sodium chloride 0.9% (plus) 50 ML 100 MG IV (20:42)
[2023-05-21 22:33] LABS: Add Urine Microscopic? NO; Charge for UA Resulting for Rev
[2023-05-21 22:41] LABS: Glucose Urine UA Norm (Normal); Ketones Urine Negative (Negative); Protein Urine Neg (Negative); Specific Gravity, Urine 1.005 (1.005-1.030); Urine Appearance Clear (CLEAR); Urine Color Colorless (Yellow); pH Urine 5 (5-7)
[2023-05-21 22:42] LABS: Bilirubin Urine Neg (Negative); Blood Urine Neg (Negative); Leukocyte Esterase Urine Negative (Negative); Nitrate Urine Negative (Negative); Urobilinogen Urine Neg (Negative)
[2023-05-22] VITALS (17 sets, daily range): BP systolic 139–158; BP diastolic 53–76; PULSE 56–88; RESP 15–24; TEMP 36.4–37; O2SAT 94–98
[2023-05-22] MEDS: linezolid premix 600 MG/300 ML PREMIX 300 MG IV ×2 (04:10→16:52)
[2023-05-22] MEDS: FUROsemide 10 mg/mL SDV 4mL 40 MG IVP ×2 (04:59→16:52)
[2023-05-22] MEDS: methylPREDNISolone sod succ 40 mg/mL INJ IVP ×3 (04:59→21:00)
[2023-05-22] MEDS: clopidogrel 75 mg Tablet PO (05:23)
[2023-05-22 05:51] LABS: Hematocrit 29.7 % (36-47); Lymphocytes # 0.6 10^3/uL (0.8-4.8); Lymphocytes % 9.1 %; Mean Corpuscular Hemoglobin 28.2 pg (27-33); Mean Platelet Volume 10.7 fL (7.4-10.4); Monocytes # 0.2 10^3/uL (0.2-0.9); Monocytes % 2.8 %; Neutrophils # 5.37 10^3/uL (1.8-7.7); Neutrophils % 87.6 %; Nucleated Red Blood Cells % 0 %; Platelet Count 194 10^3/cmm (157-399); Red Blood Count 3.16 10^6/uL (3.85-5.65); Red Cell Distribution Width 13.3 % (12.1-15.1); White Blood Count 6.13 10^3/uL (3.29-11.43)
[2023-05-22 06:17] LABS: Alanine Aminotransferase 9 U/L (0-33); Albumin Level 3.4 g/dL (3.5-5.2); Alkaline Phosphatase 47 U/L (35-105); Aspartate Amino Transferase 14 U/L (0-32); Blood Urea Nitrogen 22 mg/dL (8-23); Calcium 8.9 mg/dL (8.5-10.5); Carbon Dioxide 31 mmol/L (22-29); Chloride 94 mmol/L (98-107); Creatinine Clr Calc Pharmacy 43.2698; Globulin 2.3 g/dL (1.3-4.6); Glucose 171 mg/dL (65-115); Magnesium 1.8 mg/dL (1.7-2.3); Osmolality Calculated 283 mOsm/kg (285-295); Sodium 133 mmol/L (136-145); Total Bilirubin 0.2 mg/dL (0.15-1.2); Total Protein 5.7 g/dL (6.6-8.7)
[2023-05-22 06:22] LABS: Anion Gap 12.9 (5-19); NT Pro B Type Natriuretic Pept 4106 pg/mL (0-450); Potassium 4.9 mmol/L (3.5-5.1)
[2023-05-22] MEDS: albuterol 2.5 mg/3 mL Neb INHALATION ×2 (07:25→13:53)
[2023-05-22 07:43] LABS: INR 1.01 (0.8-1.2)
[2023-05-22] MEDS: cefepime 1,000 MG in sodium chloride 0.9% (plus) 50 ML 100 MG IV ×2 (09:01→20:28)
[2023-05-22] MEDS: metoprolol tartrate 25 mg Tablet PO ×2 (09:01→18:27)
--- NOTE | 2023-05-22 11:59 | P.PN_ITS ---
Subjective 2 Subjective: Patient was seen this morning, she is alert to person, to place, not to time she follows all commands she is on nasal cannula, continues to complain of shortness of breath and wheezing, no lightheadedness, dizziness Vitals/I&O/Wt Last Vital Signs Temp 98.1 F 05/22/23 07:40 Pulse 67 05/22/23 11:08 Resp 16 05/22/23 07:40 BP 146/69 05/22/23 07:40 Pulse Ox 96 05/22/23 11:08 O2 Del Method Nasal Cannula 05/22/23 07:40 O2 Flow Rate 4 05/21/23 20:00 FiO2 40 05/22/23 11:08 05/21/23 05/22/23 05/22/23 22:59 06:59 14:59 Intake Total 850 / 900 300 / 1200 50 / 50 Output Total 700 / 700 700 / 1400 725 / 725 Balance 150 / 200 -400 / -200 -675 / -675 Weight last 48 hrs Weight 74.888 kg Weight 74.117 kg Weight 68.039 kg Physical Exam 2 Const: COMMON NORMALS: no acute distress ORIENTATION/CONSCIOUSNESS: Yes awake, Yes oriented to person and Yes oriented to place; not oriented to time Resp: COMMON NORMALS: normal respiratory effort, No retractions, No use of accessory muscles and clear to auscultation bilaterally AUSCULTATION: clear to auscultation bilaterally Cardio: COMMON NORMALS: regular rate, regular rhythm, S1 normal heart sound present and S2 normal heart sound present RATE: regular rate RHYTHM: r egular rhythm HEART SOUNDS: S1 normal heart sound present and S2 normal heart sound present GI: COMMON NORMALS: Normal to inspection, nondistended, normoactive bowel sounds present and non-tender Extremity: NARRATIVE EXTREMITY EXAM: Right lower extremity, 2+ pitting edema with erythema Neuro: SENSORIUM/ORIENTATION: Yes oriented to person, Yes oriented to place and No oriented to time Psych: COMMON NORMALS: mental status grossly normal Urinary Catheter Management: Callahan Latex: Cath Placed During This Visit: yes Reason for Continuing Indwelling Catheter: Other Urinary Catheter Date of Insertion: 05/21/23 Urinary Catheter Time of Insertion: 20:40 Data 05/22/23 05:22 05/22/23 05:22 Micro: Microbiology 05/21/23 13:02 Blood Culture - Preliminary Blood SPECIMEN COLLECTED 05/21/23 12:34 Blood Culture - Preliminary Blood SPECIMEN COLLECTED A&P Assessment and plan (1) Acute respiratory failure with hypoxia: (2) Acute on chronic combined systolic (congestive) and diastolic (congestive) heart failure: (3) Coronary artery disease with angina pectoris: (4) PAD (peripheral artery disease): (5) Dyslipidemia: (6) Cellulitis of right lower extremity: (7) COPD exacerbation: (8) Edema of right lower extremity: (9) Cellulitis: Plan Acute hypoxic respiratory failure ? Secondary to systolic diastolic CHF exacerbation ? COPD exacerbation ? Plan ? Continue BiPAP ? Solu-Medrol 40 mg IV push every 8 hours ? Monitor respiratory status closely ? Sputum cultures, blood cultures, respiratory viral panel ? Lasix 40 mg IV twice daily COPD exacerbation, as above does report smoking cigarettes regularly, Systolic diastolic CHF exacerbation ? Fluid restrictions at 1000 cc ? Monitor creatinine, monitor urine output monitor potassium Right lower extremity cellulitis ? X-ray within normal limits ? Venous ultrasound within normal limits ? Zyvox, cefepime Left BKA CAD, with complaints of chest pain Serial EKGs, serial troponins, telemetry monitoring History of CKD, monitor urine output monitor creatinine DNR/DNI ? Lovenox for DVT prophylaxis Attestations 2 Medical Necessity Statement*: Patient requires hospitalization for acute hypoxic respiratory failure, cellulitis, requiring IV diuresis, IV steroids, IV antibiotics Diagnoses Acute respiratory failure with hypoxia J96.01 Acute on chronic combined systolic (congestive) and diastolic (congestive) heart failure I50.43 Coronary artery disease with angina pectoris I25.119 PAD (peripheral artery disease) I73.9 Dyslipidemia E78.5 Cellulitis of right lower extremity L03.115 COPD exacerbation J44.1 Edema of right lower extremity R60.0 Cellulitis L03.90
[2023-05-22] MEDS: enoxaparin 40 mg/0.4 mL Syringe SUBCUT (16:52)
[2023-05-22] MEDS: pantoprazole 40 mg SDV IVP (16:52)
[2023-05-22] MEDS: atorvastatin 40 mg Tablet PO (20:28)
[2023-05-23] VITALS (19 sets, daily range): BP systolic 114–158; BP diastolic 48–73; PULSE 60–68; RESP 12–21; TEMP 36.3–36.8; O2SAT 95–100; BMI 28.7
[2023-05-23] MEDS: linezolid premix 600 MG/300 ML PREMIX 300 MG IV ×2 (03:35→15:42)
[2023-05-23] MEDS: FUROsemide 10 mg/mL SDV 4mL 40 MG IVP ×2 (03:57→15:42)
[2023-05-23] MEDS: clopidogrel 75 mg Tablet PO (05:21)
[2023-05-23 05:45] LABS: Basophils % 0.1 %; Hematocrit 31.7 % (36-47); Lymphocytes # 0.6 10^3/uL (0.8-4.8); Lymphocytes % 7.1 %; Mean Corpuscular Hemoglobin 28.2 pg (27-33); Mean Corpuscular Volume 94.1 fl (85-98); Mean Platelet Volume 10.3 fL (7.4-10.4); Monocytes # 0.3 10^3/uL (0.2-0.9); Neutrophils # 7.44 10^3/uL (1.8-7.7); Nucleated Red Blood Cells % 0 %; Platelet Count 214 10^3/cmm (157-399); Red Blood Count 3.37 10^6/uL (3.85-5.65); Red Cell Distribution Width 13.4 % (12.1-15.1); White Blood Count 8.36 10^3/uL (3.29-11.43)
[2023-05-23] MEDS: methylPREDNISolone sod succ 40 mg/mL INJ IVP ×3 (05:46→21:00)
[2023-05-23 05:52] LABS: INR 1.05 (0.8-1.2)
[2023-05-23 06:09] LABS: Alanine Aminotransferase 10 U/L (0-33); Albumin Level 3.9 g/dL (3.5-5.2); Alkaline Phosphatase 47 U/L (35-105); Anion Gap 13.8 (5-19); Aspartate Amino Transferase 13 U/L (0-32); Blood Urea Nitrogen 29 mg/dL (8-23); Carbon Dioxide 37 mmol/L (22-29); Chloride 93 mmol/L (98-107); Creatinine Clr Calc Pharmacy 33.4525; Globulin 2.3 g/dL (1.3-4.6); Glucose 160 mg/dL (65-115); Magnesium 1.7 mg/dL (1.7-2.3); Osmolality Calculated 297 mOsm/kg (285-295); Phosphorus 4.8 mg/dL (2.5-4.5); Potassium 4.8 mmol/L (3.5-5.1); Sodium 139 mmol/L (136-145); Total Bilirubin 0.2 mg/dL (0.15-1.2); Total Protein 6.2 g/dL (6.6-8.7)
[2023-05-23 06:16] LABS: NT Pro B Type Natriuretic Pept 5514 pg/mL (0-450)
[2023-05-23] MEDS: metoprolol tartrate 25 mg Tablet PO ×2 (08:59→17:58)
[2023-05-23] MEDS: cefepime 1,000 MG in sodium chloride 0.9% (plus) 50 ML 100 MG IV ×2 (08:59→20:21)
[2023-05-23] MEDS: metOLazone 5 MG Tablet PO (09:42)
--- NOTE | 2023-05-23 12:33 | P.PN_ITS ---
Subjective 2 Subjective: Patient was seen this morning she sat up in bed, currently on 3 L, she follows all commands, reports persistent shortness of breath, and lower extremity edema no lightheadedness, no dizziness no chest pain but she does tell me she feels better no cough no fevers Vitals/I&O/Wt Last Vital Signs Temp 98.2 F 05/23/23 10:32 Pulse 65 05/23/23 10:32 Resp 18 05/23/23 10:32 BP 129/56 05/23/23 10:32 Pulse Ox 99 05/23/23 10:32 O2 Del Method Nasal Cannula 05/23/23 10:32 O2 Flow Rate 5 05/23/23 08:08 FiO2 40 05/23/23 03:39 05/22/23 05/23/23 05/23/23 21:59 06:59 14:59 Intake Total 230 / 230 Output Total Balance 230 / 230 Weight last 48 hrs Weight 73.618 kg Weight 74.888 kg Weight 74.117 kg Weight 68.039 kg Physical Exam 2 Const: COMMON NORMALS: no acute distress and patient oriented x3 Resp: COMMON NORMALS: normal respiratory effort, No retractions and No use of accessory muscles AUSCULTATION: crackles Cardio: COMMON NORMALS: regular rate, regular rhythm, S1 normal heart sound present and S2 normal heart sound present RATE: regular rate RHYTHM: r egular rhythm HEART SOUNDS: S1 normal heart sound present and S2 normal heart sound present GI: COMMON NORMALS: Normal to inspection, nondistended, normoactive bowel sounds present and non-tender Extremity: NARRATIVE EXTREMITY EXAM: 1+ pitting edema right lower extremity Neuro: COMMON NORMALS: patient oriented x3 Psych: COMMON NORMALS: mental status grossly normal Urinary Catheter Management: Callahan Latex: Cath Placed During This Visit: yes Reason for Continuing Indwelling Catheter: Accurate Measurement of Urinary Output in Critically Ill Patients Urinary Catheter Date of Insertion: 05/21/23 Urinary Catheter Time of Insertion: 20:40 Data 05/23/23 05:34 05/23/23 05:34 Micro: Microbiology 05/21/23 13:02 Blood Culture - Preliminary Blood NEGATIVE TO DATE 05/21/23 12:34 Blood Culture - Preliminary Blood NEGATIVE TO DATE A&P Assessment and plan (1) Acute respiratory failure with hypoxia: (2) Acute on chronic combined systolic (congestive) and diastolic (congestive) heart failure: (3) Coronary artery disease with angina pectoris: (4) PAD (peripheral artery disease): (5) Dyslipidemia: (6) Cellulitis of right lower extremity: (7) COPD exacerbation: (8) Edema of right lower extremity: (9) Cellulitis: Plan Acute hypoxic respiratory failure ? Secondary to systolic diastolic CHF exacerbation ? COPD exacerbation ? Plan ? Continue BiPAP ? Solu-Medrol 40 mg IV push every 8 hours ? Monitor respiratory status closely ? Sputum cultures, blood cultures, respiratory viral panel ? Lasix 40 mg IV twice daily, with 1 dose metolazone COPD exacerbation, as above does report smoking cigarettes regularly, Systolic diastolic CHF exacerbation ? Fluid restrictions at 1000 cc ? Monitor creatinine, monitor urine output monitor potassium Right lower extremity cellulitis ? X-ray within normal limits ? Venous ultrasound within normal limits ? Zyvox, cefepime Left BKA CAD, with complaints of chest pain Serial EKGs, serial troponins, telemetry monitoring History of CKD, monitor urine output monitor creatinine DNR/DNI ? Lovenox for DVT prophylaxis Attestations 2 Medical Necessity Statement*: Plan for today continue IV Lasix add on metolazone continue IV Solu-Medrol do IV antibiotics, continue to monitor clinical status closely patient requires hospitalization, for acute hypoxic respiratory failure secondary to fluid overload systolic diastolic CHF exacerbation requiring IV Lasix COPD exacerbation requiring steroids, with right lower extremity cellulitis requiring IV antibiotics Diagnoses Acute respiratory failure with hypoxia J96.01 Acute on chronic combined systolic (congestive) and diastolic (congestive) heart failure I50.43 Coronary artery disease with angina pectoris I25.119 PAD (peripheral artery disease) I73.9 Dyslipidemia E78.5 Cellulitis of right lower extremity L03.115 COPD exacerbation J44.1 Edema of right lower extremity R60.0 Cellulitis L03.90
--- NOTE | 2023-05-23 14:00 | ECG_ITS ---
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 Measurements Intervals [place] Rate: 67 P: 94 NM: 174 QRS: 174 QRSD: 135 T: -14 QT: 425 QTc: 449 Interpretive Statements SINUS RHYTHM INTRAVENTRICULAR CONDUCTION DELAY [130+ ms QRS DURATION] POSSIBLE RIGHT VENTRICULAR HYPERTROPHY [SOME/ALL OF: PROMINENT R IN V1, LATE TRANSITION, RAD, CANDY, SSS] POSSIBLE ANTERIOR MYOCARDIAL INFARCTION , OF INDETERMINATE AGE [30 ms Q WAVE IN V3/V4, OR R < 0.2 mV IN V4] Compared to ECG 05/21/2023 16:25:46 Left-axis deviation no longer present Myocardial infarct finding still present Electronically Signed On 05-24-2023 14:19:04 CDT by Saurabh De La Rosa M.D. [id number]
[2023-05-23] MEDS: acetaminophen 325 mg Tablet 650 MG PO (14:37)
[2023-05-23] MEDS: nitroglycerin 0.4 mg sublingual Tablet 0.400000000000000022 MG SUBLINGUAL (14:37)
[2023-05-23] MEDS: ondansetron 2 mg/ML SDV 2 mL 4 MG IVP (14:38)
[2023-05-23 15:29] LABS: Troponin(5th) Baseline 44 ng/L (0-10)
[2023-05-23] MEDS: pantoprazole 40 mg SDV IVP (15:42)
[2023-05-23] MEDS: enoxaparin 40 mg/0.4 mL Syringe SUBCUT (15:43)
[2023-05-23] MEDS: atorvastatin 40 mg Tablet PO (20:21)
[2023-05-23 21:39] LABS: Troponin 5 6HR 42.93 ng/L (0-10)
[2023-05-23 21:43] LABS: Troponin 5 6HR Delta -1.07 ng/L (0-12)
[2023-05-23] MEDS: albuterol 2.5 mg/3 mL Neb INHALATION (21:57)
[2023-05-24] VITALS (10 sets, daily range): BP systolic 112–142; BP diastolic 54–66; PULSE 60–68; RESP 14–23; TEMP 36.1–37; O2SAT 92–100
[2023-05-24] MEDS: linezolid premix 600 MG/300 ML PREMIX 300 MG IV ×2 (04:59→16:21)
[2023-05-24] MEDS: methylPREDNISolone sod succ 40 mg/mL INJ IVP ×3 (05:00→22:28)
[2023-05-24] MEDS: FUROsemide 10 mg/mL SDV 4mL 40 MG IVP (05:00)
[2023-05-24] MEDS: clopidogrel 75 mg Tablet PO (05:00)
[2023-05-24 05:42] LABS: Basophils % 0.1 %; Lymphocytes # 0.7 10^3/uL (0.8-4.8); Lymphocytes % 7.4 %; Mean Corpuscular HGB Conc 29.4 g/dL (30-55); Mean Corpuscular Hemoglobin 28.5 pg (27-33); Mean Corpuscular Volume 97.1 fl (85-98); Mean Platelet Volume 10.2 fL (7.4-10.4); Monocytes # 0.4 10^3/uL (0.2-0.9); Monocytes % 4.4 %; Neutrophils # 8.18 10^3/uL (1.8-7.7); Nucleated Red Blood Cells % 0 %; Platelet Count 209 10^3/cmm (157-399); Red Cell Distribution Width 13.3 % (12.1-15.1); White Blood Count 9.51 10^3/uL (3.29-11.43)
[2023-05-24 05:52] LABS: INR 0.95 (0.8-1.2)
[2023-05-24 06:12] LABS: Alanine Aminotransferase 10 U/L (0-33); Albumin Level 3.9 g/dL (3.5-5.2); Alkaline Phosphatase 44 U/L (35-105); Anion Gap 13.8 (5-19); Aspartate Amino Transferase 11 U/L (0-32); Blood Urea Nitrogen 42 mg/dL (8-23); Calcium 8.6 mg/dL (8.5-10.5); Carbon Dioxide 38 mmol/L (22-29); Chloride 93 mmol/L (98-107); Creatinine Clr Calc Pharmacy 28.9066; Globulin 2.3 g/dL (1.3-4.6); Glucose 138 mg/dL (65-115); Magnesium 1.8 mg/dL (1.7-2.3); Osmolality Calculated 303 mOsm/kg (285-295); Phosphorus 5.1 mg/dL (2.5-4.5); Potassium 4.8 mmol/L (3.5-5.1); Sodium 140 mmol/L (136-145); Total Bilirubin 0.2 mg/dL (0.15-1.2); Total Protein 6.2 g/dL (6.6-8.7)
[2023-05-24 06:23] LABS: NT Pro B Type Natriuretic Pept 6612 pg/mL (0-450)
[2023-05-24] MEDS: metoprolol tartrate 25 mg Tablet PO ×2 (07:52→17:55)
[2023-05-24] MEDS: cefepime 1,000 MG in sodium chloride 0.9% (plus) 50 ML 100 MG IV ×2 (07:52→20:14)
[2023-05-24] MEDS: albuterol 2.5 mg/3 mL Neb INHALATION (08:20)
--- NOTE | 2023-05-24 12:26 | P.PN_ITS ---
Subjective 2 Subjective: Patient was seen this, she continues to complain of shortness of breath and wheezing, she had chest pain yesterday afternoon but currently denies any chest pain, no fevers, chills does have a nonproductive cough Vitals/I&O/Wt Last Vital Signs Temp 98.3 F 05/24/23 12:00 Pulse 67 05/24/23 12:00 Resp 17 05/24/23 12:00 BP 112/56 05/24/23 12:00 Pulse Ox 92 05/24/23 12:00 O2 Del Method Nasal Cannula 05/24/23 08:20 O2 Flow Rate 5 05/24/23 08:20 FiO2 40 05/24/23 03:51 05/23/23 05/24/23 05/24/23 22:59 06:59 14:59 Intake Total 590 / 1060 300 / 1360 650 / 650 Output Total 1000 / 1201 750 / 1951 500 / 500 Balance -410 / -141 -450 / -591 150 / 150 Weight last 48 hrs Weight 74.435 kg Weight 73.618 kg Physical Exam 2 Const: COMMON NORMALS: no acute distress and patient oriented x3 Resp: COMMON NORMALS: normal respiratory effort, No retractions and No use of accessory muscles AUSCULTATION: wheezes Cardio: COMMON NORMALS: regular rate, regular rhythm, S1 normal heart sound present and S2 normal heart sound present RATE: regular rate RHYTHM: r egular rhythm HEART SOUNDS: S1 normal heart sound present and S2 normal heart sound present GI: COMMON NORMALS: Normal to inspection, nondistended, normoactive bowel sounds present and non-tender Extremity: COMMON NORMALS: no pedal edema Neuro: COMMON NORMALS: patient oriented x3 Psych: COMMON NORMALS: mental status grossly normal Skin: NARRATIVE SKIN EXAM: Right leg, erythema improving continues to have pitting edema Urinary Catheter Management: Callahan Latex: Cath Placed During This Visit: yes Reason for Continuing Indwelling Catheter: Other Urinary Catheter Date of Insertion: 05/21/23 Urinary Catheter Time of Insertion: 20:40 Data 05/24/23 05:22 05/24/23 05:22 Micro: Microbiology 05/23/23 04:44 Gram Stain - Final Sputum - Expectorated Sputum A&P Assessment and plan (1) Acute respiratory failure with hypoxia: (2) Acute on chronic combined systolic (congestive) and diastolic (congestive) heart failure: (3) Coronary artery disease with angina pectoris: (4) PAD (peripheral artery disease): (5) Dyslipidemia: (6) Cellulitis of right lower extremity: (7) COPD exacerbation: (8) Edema of right lower extremity: (9) Cellulitis: Plan Acute hypoxic respiratory failure ? Secondary to systolic diastolic CHF exacerbation ? COPD exacerbation ? Plan ? Continue BiPAP ? Solu-Medrol 40 mg IV push every 8 hours ? Monitor respiratory status closely ? Sputum cultures, blood cultures, respiratory viral panel ? 1 dose IV Lasix today COPD exacerbation, as above does report smoking cigarettes regularly, Systolic diastolic CHF exacerbation ? Fluid restrictions at 1000 cc ? Monitor creatinine, monitor urine output monitor potassium Right lower extremity cellulitis ? X-ray within normal limits ? Venous ultrasound within normal limits ? Zyvox, cefepime Left BKA CAD, with complaints of chest pain Serial EKGs, serial troponins, telemetry monitoring History of CKD, monitor urine output monitor creatinine DNR/DNI ? Lovenox for DVT prophylaxis Plan for today continue IV diuresis, for respiratory failure, continue steroids, continue antibiotics Attestations 2 Medical Necessity Statement*: Patient requires hospitalization for persistent shortness of breath for CHF, COPD, Diagnoses Acute respiratory failure with hypoxia J96.01 Acute on chronic combined systolic (congestive) and diastolic (congestive) heart failure I50.43 Coronary artery disease with angina pectoris I25.119 PAD (peripheral artery disease) I73.9 Dyslipidemia E78.5 Cellulitis of right lower extremity L03.115 COPD exacerbation J44.1 Edema of right lower extremity R60.0 Cellulitis L03.90
[2023-05-24] MEDS: pantoprazole 40 mg SDV IVP (16:21)
[2023-05-24] MEDS: enoxaparin 40 mg/0.4 mL Syringe SUBCUT (16:22)
[2023-05-24] MEDS: atorvastatin 40 mg Tablet PO (20:14)
[2023-05-25] VITALS (18 sets, daily range): BP systolic 124–161; BP diastolic 56–89; PULSE 53–79; RESP 14–26; TEMP 36.3–36.7; O2SAT 92–100
[2023-05-25] MEDS: linezolid premix 600 MG/300 ML PREMIX 300 MG IV ×2 (03:52→16:44)
[2023-05-25 05:54] LABS: Basophils % 0.1 %; Hematocrit 30.6 % (36-47); Lymphocytes # 0.7 10^3/uL (0.8-4.8); Lymphocytes % 6.8 %; Mean Corpuscular HGB Conc 30.1 g/dL (30-55); Mean Corpuscular Hemoglobin 28.8 pg (27-33); Mean Corpuscular Volume 95.9 fl (85-98); Mean Platelet Volume 10.7 fL (7.4-10.4); Monocytes # 0.3 10^3/uL (0.2-0.9); Monocytes % 3.3 %; Neutrophils # 8.71 10^3/uL (1.8-7.7); Neutrophils % 86.4 %; Nucleated Red Blood Cells % 0.2 %; Platelet Count 191 10^3/cmm (157-399); Red Blood Count 3.19 10^6/uL (3.85-5.65); Red Cell Distribution Width 13.1 % (12.1-15.1); White Blood Count 10.07 10^3/uL (3.29-11.43)
[2023-05-25] MEDS: clopidogrel 75 mg Tablet PO (06:14)
[2023-05-25 06:31] LABS: Anion Gap 12.8 (5-19); Blood Urea Nitrogen 51 mg/dL (8-23); Calcium 8.2 mg/dL (8.5-10.5); Carbon Dioxide 36 mmol/L (22-29); Chloride 88 mmol/L (98-107); Creatinine Clr Calc Pharmacy 23.9602; Glucose 155 mg/dL (65-115); NT Pro B Type Natriuretic Pept 5513 pg/mL (0-450); Osmolality Calculated 291 mOsm/kg (285-295); Potassium 4.8 mmol/L (3.5-5.1); Sodium 132 mmol/L (136-145)
[2023-05-25 06:36] LABS: Magnesium 1.9 mg/dL (1.7-2.3); Phosphorus 4.9 mg/dL (2.5-4.5)
[2023-05-25] MEDS: methylPREDNISolone sod succ 40 mg/mL INJ IVP ×2 (06:39→13:17)
[2023-05-25] MEDS: morphine 4 mg/mL SDV 1 mL 1 MG IVP (08:26)
[2023-05-25] MEDS: cefepime 1,000 MG in sodium chloride 0.9% (plus) 50 ML 100 MG IV (08:30)
[2023-05-25] MEDS: metoprolol tartrate 25 mg Tablet PO ×2 (08:33→17:31)
--- NOTE | 2023-05-25 09:46 | XRR_ITS ---
PROCEDURE INFORMATION: Exam: XR Chest Exam date and time: 05/25/2023 10:25 AM Age: 78 years old Clinical indication: Dyspnea and shortness of breath; Prior surgery; Surgery date: 6+ months; Surgery type: Breast and coronary stent; Additional info: SOB TECHNIQUE: Imaging protocol: Radiologic exam of the chest. Views: 1 view. COMPARISON: CR XR chest 1V portable [id number] 05/21/2023 12:35 PM FINDINGS: Lungs: There is similar appearing right lower lobe infiltrate and effusion. Pleural spaces: There is no pneumothorax. Heart/Mediastinum: The heart size is not well assessed. Bones/joints: Unremarkable. XR/XR chest 1V portable [id number] IMPRESSION: Similar appearing right lower lobe infiltrate and effusion.
[2023-05-25 11:32] LABS: ABG PH Result 7.26 (7.35-7.45); Arterial Blood Gas Hematocrit 29.5 % (37-47); Base Excess ABG 11.8 mmol/L (-2.0-2.0); Blood Gas Operator Identificat AMH; Blood Gas Sample Site Brachial, right; Blood Gas Sample Type Arterial; HCO3 ABG 41.4 mmol/L (22-26); Oxygen Device NC; PO2 ABG 81.4 mmHg (80.0-100.0); PO2 FiO2 Ratio Arterial Blood 0
[2023-05-25 11:33] LABS: ABG PCO2 91.8 mmHg (35-45)
--- NOTE | 2023-05-25 14:12 | P.PN_ITS ---
Subjective 2 Subjective: Patient was seen this morning, she reports increasingly short of breath, alert to person, to place, not to time, she reports she used BiPAP throughout the night, will repeat her ABG her blood work we discussed her increasing creatinine, with her persistent fluid overload, worried for renal function with diuresis, will have to watch her kidney function closely, her diuresis has been lackluster, she has diuresed about a liter negative, will continue to monitor her she is agreeable to go to home on hospice when she does go home daughter was at bedside Vitals/I&O/Wt Last Vital Signs Temp 97.5 F L 05/25/23 12:49 Pulse 60 05/25/23 13:27 Resp 15 05/25/23 12:49 BP 124/89 05/25/23 12:49 Pulse Ox 93 05/25/23 13:27 O2 Del Method Nasal Cannula 05/25/23 10:10 O2 Flow Rate 4 05/25/23 10:10 FiO2 30 05/25/23 13:27 05/24/23 05/25/23 05/25/23 22:59 06:59 14:59 Intake Total 460 / 1110 540 / 1650 290 / 290 Output Total 525 / 1025 Balance 460 / 610 15 / 625 290 / 290 Weight last 48 hrs Weight 73.618 kg Weight 74.435 kg Physical Exam 2 Const: COMMON NORMALS: no acute distress and patient oriented x3 Resp: COMMON NORMALS: normal respiratory effort, No retractions and No use of accessory muscles AUSCULTATION: crackles and wheezes Cardio: COMMON NORMALS: regular rate, regular rhythm, S1 normal heart sound present and S2 normal heart sound present RATE: regular rate RHYTHM: r egular rhythm HEART SOUNDS: S1 normal heart sound present and S2 normal heart sound present GI: COMMON NORMALS: Normal to inspection, nondistended, normoactive bowel sounds present and non-tender Extremity: NARRATIVE EXTREMITY EXAM: 2+ pitting edema right lower extremity Neuro: COMMON NORMALS: patient oriented x3 Psych: COMMON NORMALS: mental status grossly normal Urinary Catheter Management: Callahan Latex: Cath Placed During This Visit: yes Reason for Continuing Indwelling Catheter: Other Urinary Catheter Date of Insertion: 05/21/23 Urinary Catheter Time of Insertion: 20:40 Data 05/25/23 05:16 05/25/23 05:16 Micro: Microbiology 05/23/23 04:44 Gram Stain - Final Sputum - Expectorated Sputum Sputum Culture - Preliminary Yeast species A&P Assessment and plan (1) Acute respiratory failure with hypoxia: (2) Acute on chronic combined systolic (congestive) and diastolic (congestive) heart failure: (3) Coronary artery disease with angina pectoris: (4) PAD (peripheral artery disease): (5) Dyslipidemia: (6) Cellulitis of right lower extremity: (7) COPD exacerbation: (8) Edema of right lower extremity: (9) Cellulitis: Plan Acute hypoxic respiratory failure ? Secondary to systolic diastolic CHF exacerbation ? COPD exacerbation ? Plan ? Continue BiPAP ? De-escalate to prednisone 40 mg once daily ? Monitor respiratory status closely ? Sputum cultures, blood cultures, respiratory viral panel ?Has received Lasix this morning creatinine up to 1.8, repeat BMP in the afternoon decide if we will give her another dose of Lasix based on clinical progress COPD exacerbation, as above does report smoking cigarettes regularly, Systolic diastolic CHF exacerbation ? Fluid restrictions at 1000 cc ? Monitor creatinine, monitor urine output monitor potassium Right lower extremity cellulitis ? X-ray within normal limits ? Venous ultrasound within normal limits ? Zyvox, cefepime Left BKA CAD, with complaints of chest pain Serial EKGs, serial troponins, telemetry monitoring History of CKD, monitor urine output monitor creatinine DNR/DNI ? Lovenox for DVT prophylaxis Plan for today received her Lasix this morning continues to have respiratory failure placed back on BiPAP will consider further diuresis based on her kidney function Attestations 2 Medical Necessity Statement*: Patient requires hospitalization, inpatient, for respiratory failure worsening hypoxic respiratory failure pCO2 up to 91.2 requiring further BiPAP therapy, further diuresis developing KAYLI Diagnoses Acute respiratory failure with hypoxia J96.01 Acute on chronic combined systolic (congestive) and diastolic (congestive) heart failure I50.43 Coronary artery disease with angina pectoris I25.119 PAD (peripheral artery disease) I73.9 Dyslipidemia E78.5 Cellulitis of right lower extremity L03.115 COPD exacerbation J44.1 Edema of right lower extremity R60.0 Cellulitis L03.90
[2023-05-25 14:17] LABS: Blood Urea Nitrogen 56 mg/dL (8-23); Calcium 8.6 mg/dL (8.5-10.5); Carbon Dioxide 40 mmol/L (22-29); Chloride 90 mmol/L (98-107); Glucose 115 mg/dL (65-115); Osmolality Calculated 296 mOsm/kg (285-295); Sodium 135 mmol/L (136-145)
[2023-05-25 14:19] LABS: Creatinine Clr Calc Pharmacy 25.3697
[2023-05-25] MEDS: FUROsemide 10 mg/mL SDV 4mL 40 MG IVP (16:43)
[2023-05-25] MEDS: pantoprazole 40 mg SDV IVP (16:44)
[2023-05-25] MEDS: enoxaparin 40 mg/0.4 mL Syringe SUBCUT (16:44)
[2023-05-25] MEDS: atorvastatin 40 mg Tablet PO (20:37)
--- NOTE | 2023-05-25 22:57 | PC.NURSE ---
Patient asking for something to help her sleep. Dr. Wall notified. No new orders received due to patient's respiratory status.
--- NOTE | 2023-05-25 23:50 | PC.NURSE ---
Addendum entered by Yaquelin Logan RN 05/26/23 00:03: Verified with patient that she does not want to be intubated. Patient stated absolutely not. Original Note: Patient c/o shortness of breath, stating she feels like she is dying. Patient's oxygen saturation 100 percent on Bipap. Daughter called per patient request. Patient is AND. Dr. Wall notified. Morphine 2 mg x1 ordered.
[2023-05-25] MEDS: morphine 4 mg/mL SDV 1 mL 2 MG IVP (23:55)
[2023-05-25] MEDS: acetaminophen 325 mg Tablet 650 MG PO (23:55)
[2023-05-26] VITALS (14 sets, daily range): BP systolic 144–167; BP diastolic 52–67; PULSE 52–62; RESP 16–25; TEMP 36.2–37; O2SAT 92–97
[2023-05-26] MEDS: linezolid premix 600 MG/300 ML PREMIX 300 MG IV ×2 (05:08→16:40)
[2023-05-26 05:23] LABS: Hematocrit 30.6 % (36-47); Lymphocytes # 1.3 10^3/uL (0.8-4.8); Lymphocytes % 12.5 %; Mean Corpuscular HGB Conc 30.1 g/dL (30-55); Mean Platelet Volume 10.6 fL (7.4-10.4); Monocytes # 0.8 10^3/uL (0.2-0.9); Monocytes % 7.9 %; Neutrophils # 8.27 10^3/uL (1.8-7.7); Neutrophils % 78.2 %; Nucleated Red Blood Cells % 0.2 %; Platelet Count 185 10^3/cmm (157-399); Red Blood Count 3.29 10^6/uL (3.85-5.65); White Blood Count 10.57 10^3/uL (3.29-11.43)
[2023-05-26 05:50] LABS: Phosphorus 4.5 mg/dL (2.5-4.5)
[2023-05-26 05:58] LABS: Anion Gap 13.7 (5-19); Blood Urea Nitrogen 62 mg/dL (8-23); Calcium 8.8 mg/dL (8.5-10.5); Carbon Dioxide 39 mmol/L (22-29); Chloride 87 mmol/L (98-107); Creatinine Clr Calc Pharmacy 23.0441; Glucose 96 mg/dL (65-115); NT Pro B Type Natriuretic Pept 6448 pg/mL (0-450); Osmolality Calculated 297 mOsm/kg (285-295); Potassium 4.7 mmol/L (3.5-5.1); Sodium 135 mmol/L (136-145)
[2023-05-26] MEDS: acetaminophen 325 mg Tablet 650 MG PO ×2 (06:44→19:46)
[2023-05-26] MEDS: morphine 4 mg/mL SDV 1 mL 1 MG IVP ×2 (06:44→20:01)
[2023-05-26] MEDS: albuterol 2.5 mg/3 mL Neb INHALATION (07:27)
--- NOTE | 2023-05-26 08:00 | CT_ITS ---
WS: [id number] CT chest wo con [id number] HISTORY: sob TECHNIQUE: Axial imaging performed through the thorax. Coronal and sagittal reformats are submitted. All CT scans at [facility] use at least one of these dose optimization techniques: automated exposure control; mA and/or kV adjustment per patient size (includes targeted exams where dose is mat ched to clinical indication); or iterative reconstruction. CONTRAST: None DLP: 597.92 mGy.cm COMPARISON: 04/22/2021. Limited by breathing motion artifact. Lungs and central airway: Subsegmental atelectasis at the RIGHT lung base. Breathing motion artifact. Prior granulomatous disease. Pleura: Small RIGHT pleural effusion. Heart and pericardium: Mild cardiomegaly. Mediastinum and estela: No mediastinum or hilar adenopathy. Vessels: Extensive atherosclerosis thoracic aorta. No dilated artery. Normal sized pulmonary artery. Coronary artery calcifications. Chest wall and lower neck: No soft tissue masses. Upper abdomen: Endovascular graft repair noted extending into the supra renal abdominal aorta. Mesent angel artery stent also identified. LEFT kidney is atrophied as previously described. Splenic granulom clif[place]. Osseous structures: No destructive process. IMPRESSION: 1. Small layering RIGHT pleural effusion. 2. No pulmonary mass or nodule. No pneumonia. 3. Moderate atherosclerosis thoracic aorta. 4. Mild cardiomegaly. 5. No adenopathy.
[2023-05-26] MEDS: metoprolol tartrate 25 mg Tablet PO ×2 (09:09→16:41)
[2023-05-26] MEDS: predniSONE 20 mg Tablet 40 MG PO (09:09)
[2023-05-26] MEDS: cefepime 1,000 MG in sodium chloride 0.9% (plus) 50 ML 100 MG IV (09:09)
[2023-05-26] MEDS: clopidogrel 75 mg Tablet PO (09:09)
--- NOTE | 2023-05-26 11:44 | P.PN_ITS ---
Subjective 2 Subjective: Patient was seen this morning, she sitting up to the side of the bed, complaining of shortness of breath, she tells me that her edema is improving, she used BiPAP throughout the night, she is currently off of it, denies any no pain, no palpitations, denies any fevers, no chills Vitals/I&O/Wt Last Vital Signs Temp 98.6 F 05/26/23 09:24 Pulse 57 L 05/26/23 09:24 Resp 16 05/26/23 09:24 BP 144/55 05/26/23 09:24 Pulse Ox 97 05/26/23 09:24 O2 Del Method Nasal Cannula 05/26/23 09:24 O2 Flow Rate 4 05/26/23 09:24 FiO2 30 05/26/23 07:28 05/25/23 05/26/23 05/26/23 22:59 06:59 14:59 Intake Total 500 / 790 360 / 1150 410 / 410 Output Total 650 / 650 Balance 500 / 790 -290 / 500 410 / 410 Weight last 48 hrs Weight 75.931 kg Weight 73.618 kg Physical Exam 2 Const: COMMON NORMALS: no acute distress and patient oriented x3 Resp: COMMON NORMALS: normal respiratory effort, No retractions and No use of accessory muscles AUSCULTATION: crackles and wheezes Cardio: COMMON NORMALS: regular rate, regular rhythm, S1 normal heart sound present and S2 normal heart sound present RATE: regular rate RHYTHM: r egular rhythm HEART SOUNDS: S1 normal heart sound present and S2 normal heart sound present GI: COMMON NORMALS: Normal to inspection, nondistended, normoactive bowel sounds present and non-tender Extremity: COMMON NORMALS: no pedal edema Neuro: COMMON NORMALS: patient oriented x3 Psych: COMMON NORMALS: mental status grossly normal Urinary Catheter Management: Callahan Latex: Cath Placed During This Visit: yes Reason for Continuing Indwelling Catheter: Other Urinary Catheter Date of Insertion: 05/21/23 Urinary Catheter Time of Insertion: 20:40 Data 05/26/23 05:03 05/26/23 05:03 Micro: Microbiology 05/23/23 04:44 Gram Stain - Final Sputum - Expectorated Sputum Sputum Culture - Preliminary Yeast species A&P Assessment and plan (1) Acute respiratory failure with hypoxia: (2) Acute on chronic combined systolic (congestive) and diastolic (congestive) heart failure: (3) Coronary artery disease with angina pectoris: (4) PAD (peripheral artery disease): (5) Dyslipidemia: (6) Cellulitis of right lower extremity: (7) COPD exacerbation: (8) Edema of right lower extremity: (9) Cellulitis: Plan Acute hypoxic respiratory failure ? Secondary to systolic diastolic CHF exacerbation ? COPD exacerbation ? Plan ? Continue BiPAP ? De-escalate to prednisone 40 mg once daily ? Monitor respiratory status closely ? Sputum cultures, blood cultures, respiratory viral panel ?Has received Lasix this morning creatinine up to 1.8, repeat BMP in the afternoon decide if we will give her another dose of Lasix based on clinical progress COPD exacerbation, as above does report smoking cigarettes regularly, Systolic diastolic CHF exacerbation ? Fluid restrictions at 1000 cc ? Monitor creatinine, monitor urine output monitor potassium Right lower extremity cellulitis ? X-ray within normal limits ? Venous ultrasound within normal limits ? Zyvox, cefepime Left BKA CAD, with complaints of chest pain Serial EKGs, serial troponins, telemetry monitoring History of CKD, monitor urine output monitor creatinine DNR/DNI ? Lovenox for DVT prophylaxis Plan for today patient was seen this morning, she continues to complain of shortness of breath, creatinine up to 1.9 will consider Lasix based upon her BMP this afternoon order CT of the chest she had evidence of hypercarbic respiratory failure, continue BiPAP during the day will repeat ABG Attestations 2 Medical Necessity Statement*: Patient requires hospitalization for acute hypoxic respiratory failure secondary to CHF, COPD, cellulitis Diagnoses Acute respiratory failure with hypoxia J96.01 Acute on chronic combined systolic (congestive) and diastolic (congestive) heart failure I50.43 Coronary artery disease with angina pectoris I25.119 PAD (peripheral artery disease) I73.9 Dyslipidemia E78.5 Cellulitis of right lower extremity L03.115 COPD exacerbation J44.1 Edema of right lower extremity R60.0 Cellulitis L03.90
[2023-05-26] MEDS: fluconazole premix 100 MG in empty flexible container 1 EACH 50 MG IV (13:07)
[2023-05-26 13:21] LABS: ABG PH Result 7.32 (7.35-7.45); Arterial Blood Gas Hematocrit 30.3 % (37-47); Base Excess ABG 13.9 mmol/L (-2.0-2.0); Blood Gas Allen Test Pos; Blood Gas Operator Identificat MONRO; Blood Gas Sample Site Brachial, right; Blood Gas Sample Type Arterial; HCO3 ABG 42.8 mmol/L (22-26); Oxygen Device BIPAP; PO2 ABG 71.4 mmHg (80.0-100.0); PO2 FiO2 Ratio Arterial Blood 0
[2023-05-26 13:26] LABS: ABG PCO2 84.2 mmHg (35-45)
[2023-05-26 14:52] LABS: Blood Urea Nitrogen 62 mg/dL (8-23); Calcium 8.7 mg/dL (8.5-10.5); Carbon Dioxide 38 mmol/L (22-29); Chloride 86 mmol/L (98-107); Creatinine Clr Calc Pharmacy 24.3243; Glucose 141 mg/dL (65-115); Osmolality Calculated 298 mOsm/kg (285-295); Sodium 134 mmol/L (136-145)
[2023-05-26 14:56] LABS: Anion Gap 14.7 (5-19); Potassium 4.7 mmol/L (3.5-5.1)
[2023-05-26] MEDS: enoxaparin 40 mg/0.4 mL Syringe SUBCUT (16:40)
[2023-05-26] MEDS: pantoprazole 40 mg SDV IVP (16:41)
[2023-05-26] MEDS: atorvastatin 40 mg Tablet PO (19:46)
--- NOTE | 2023-05-26 20:06 | PC.NURSE ---
Dr. Wall ordered to hold midnight Lovenox for 7 am bernardino lemus.
[2023-05-27] VITALS (12 sets, daily range): BP systolic 114–170; BP diastolic 55–82; PULSE 59–79; RESP 16–21; TEMP 36.2–36.9; O2SAT 91–100
[2023-05-27] MEDS: morphine 4 mg/mL SDV 1 mL 1 MG IVP (00:37)
[2023-05-27] MEDS: linezolid premix 600 MG/300 ML PREMIX 300 MG IV (04:40)
[2023-05-27 05:10] LABS: Basophils % 0.1 %; Eosinophils % 0.1 %; Hematocrit 31.2 % (36-47); Lymphocytes # 1.5 10^3/uL (0.8-4.8); Lymphocytes % 13.5 %; Mean Corpuscular HGB Conc 31.1 g/dL (30-55); Mean Corpuscular Hemoglobin 28.5 pg (27-33); Mean Corpuscular Volume 91.8 fl (85-98); Mean Platelet Volume 10.3 fL (7.4-10.4); Monocytes # 0.8 10^3/uL (0.2-0.9); Monocytes % 7.4 %; Neutrophils # 8.55 10^3/uL (1.8-7.7); Neutrophils % 77.6 %; Nucleated Red Blood Cells % 0 %; Platelet Count 177 10^3/cmm (157-399); White Blood Count 11.01 10^3/uL (3.29-11.43)
[2023-05-27 05:41] LABS: Anion Gap 11.9 (5-19); Blood Urea Nitrogen 59 mg/dL (8-23); Calcium 8.7 mg/dL (8.5-10.5); Chloride 89 mmol/L (98-107); Creatinine Clr Calc Pharmacy 25.6645; Glucose 108 mg/dL (65-115); NT Pro B Type Natriuretic Pept 6219 pg/mL (0-450); Osmolality Calculated 301 mOsm/kg (285-295); Potassium 4.9 mmol/L (3.5-5.1); Sodium 137 mmol/L (136-145)
[2023-05-27 05:44] LABS: Phosphorus 4.2 mg/dL (2.5-4.5)
[2023-05-27 06:04] LABS: Carbon Dioxide 41 mmol/L (22-29)
[2023-05-27] MEDS: ondansetron 2 mg/ML SDV 2 mL 4 MG IVP (07:42)
[2023-05-27] MEDS: metoprolol tartrate 25 mg Tablet PO (09:11)
[2023-05-27] MEDS: predniSONE 20 mg Tablet 40 MG PO (09:11)
[2023-05-27] MEDS: metOLazone 5 MG Tablet PO (09:11)
[2023-05-27] MEDS: potassium chloride ER 20 mEq Tablet PO (09:11)
[2023-05-27] MEDS: cefepime 1,000 MG in sodium chloride 0.9% (plus) 50 ML 100 MG IV (09:12)
[2023-05-27] MEDS: clopidogrel 75 mg Tablet PO (09:12)
[2023-05-27] MEDS: FUROsemide 10 mg/mL SDV 4mL 40 MG IVP (09:38)
--- NOTE | 2023-05-27 10:30 | P.PN_ITS ---
Subjective 2 Subjective: Patient was seen this morning, overnight according to nursing staff patient refused BiPAP, she had voiced to nursing staff that she is ready to , she is anxious that she is still here, patient was seen this morning she is alert oriented x 3, following all commands, she refuses BiPAP this morning, we discussed her severe respiratory failure hypercarbia however she tells me that she is done and she does not want to use the BiPAP anymore, I told her that if she does not use the BiPAP she will , she is tells me that she is okay with that she is ready to , we discussed her going home on hospice, for us to ease her pain and ease her suffering allow her to pass with comfortably, she agrees with this she tells me she does not want to have any more interventions, we discussed that without the BiPAP at home, she likely will develop acute hypercarbic respiratory failure and likely succumb she tells me that at this time she just wants to be comfortable she does not want any more medical interventions just wants to pass away comfortably, this conversation was in front of nursing staff Patient was seen again this morning, with daughter at bedside, we discussed her severe respiratory failure secondary to hypercarbic respiratory failure secondary to severe COPD, with CHF, she continues to have episodes of fluid overload and when to give her another dose of Lasix metolazone this morning that was not initially the plan, continue BiPAP continue to monitor her however patient refuses BiPAP and she wants to go home and . Patient understands morbidity and mortality associated with acute hypoxic hypercarbic respiratory failure, COPD, CHF, she understands this, she voiced understanding, all questions answered, wants to go home on hospice, and in her words diet home. That was her words, she is ready to and she wants to go home. Patient's daughter becomes very emotional, she tells me that she saw this coming, I discussed her severe COPD, and that without BiPAP therapy she likely will develop worsening respiratory failure and hypercarbia and likely succumb and likely in addition to her fluid overload. However Bridgette has voiced that she wants to go home on hospice and just be comfortable for us to ease her pain and ease her suffering allow her to pass away comfortably. Patient's daughter is sepsis, and she is willing to monitor her mom home at hospice. I discussed with Bridgette and her daughter at bedside the risks and benefits of hospice, shared decision making, they voiced understanding, all questions answered, agreed to proceed with hospice at home Vitals/I&O/Wt Last Vital Signs Temp 97.1 F L 05/27/23 07:32 Pulse 61 05/27/23 08:00 Resp 18 05/27/23 08:00 BP 150/72 05/27/23 07:32 Pulse Ox 100 05/27/23 08:00 O2 Del Method Nasal Cannula 05/27/23 08:00 O2 Flow Rate 4 05/27/23 08:00 FiO2 30 05/27/23 04:10 05/26/23 05/27/23 05/27/23 22:59 06:59 14:59 Intake Total 660 / 1120 420 / 1540 170 / 170 Output Total 400 / 400 600 / 1000 Balance 260 / 720 -180 / 540 170 / 170 Weight last 48 hrs Weight 75.387 kg Weight 75.931 kg Physical Exam 2 Const: COMMON NORMALS: no acute distress and patient oriented x3 Resp: COMMON NORMALS: normal respiratory effort, No retractions and No use of accessory muscles AUSCULTATION: crackles and wheezes Cardio: COMMON NORMALS: regular rate, regular rhythm, S1 normal heart sound present and S2 normal heart sound present RATE: regular rate RHYTHM: r egular rhythm HEART SOUNDS: S1 normal heart sound present and S2 normal heart sound present GI: COMMON NORMALS: Normal to inspection, nondistended, normoactive bowel sounds present and non-tender Extremity: NARRATIVE EXTREMITY EXAM: 2+ pitting edema Neuro: COMMON NORMALS: patient oriented x3 Psych: COMMON NORMALS: mental status grossly normal Urinary Catheter Management: Callahan Latex: Cath Placed During This Visit: yes Reason for Continuing Indwelling Catheter: Other Urinary Catheter Date of Insertion: 05/21/23 Urinary Catheter Time of Insertion: 20:40 Data 05/27/23 04:51 05/27/23 04:51 Micro: Microbiology 05/23/23 04:44 Gram Stain - Final Sputum - Expectorated Sputum Sputum Culture - Final Raisa albicans 05/21/23 13:02 Blood Culture - Final Blood NO GROWTH AFTER 5 DAYS 05/21/23 12:34 Blood Culture - Final Blood NO GROWTH AFTER 5 DAYS A&P Assessment and plan (1) Acute respiratory failure with hypoxia: (2) Acute on chronic combined systolic (congestive) and diastolic (congestive) heart failure: (3) Coronary artery disease with angina pectoris: (4) PAD (peripheral artery disease): (5) Dyslipidemia: (6) Cellulitis of right lower extremity: (7) COPD exacerbation: (8) Edema of right lower extremity: (9) Cellulitis: (10) Encounter for hospice care discussion: (11) Encounter for hospice care: Plan Patient wants to proceed home on hospice, will arrange home hospice, will arrange ambulance transfer, discharged today on home hospice Acute hypoxic respiratory failure ? Secondary to systolic diastolic CHF exacerbation ? COPD exacerbation ? Plan ? Continue BiPAP ? De-escalate to prednisone 40 mg once daily ? Monitor respiratory status closely ? Sputum cultures, blood cultures, respiratory viral panel ?Has received Lasix this morning creatinine up to 1.8, repeat BMP in the afternoon decide if we will give her another dose of Lasix based on clinical progress COPD exacerbation, as above does report smoking cigarettes regularly, Systolic diastolic CHF exacerbation ? Fluid restrictions at 1000 cc ? Monitor creatinine, monitor urine output monitor potassium Right lower extremity cellulitis ? X-ray within normal limits ? Venous ultrasound within normal limits ? Zyvox, cefepime Left BKA CAD, with complaints of chest pain Serial EKGs, serial troponins, telemetry monitoring History of CKD, monitor urine output monitor creatinine DNR/DNI ? Lovenox for DVT prophylaxis Attestations 2 Medical Necessity Statement*: Patient patient will be discharged home today on home hospice Diagnoses Acute respiratory failure with hypoxia J96.01 Acute on chronic combined systolic (congestive) and diastolic (congestive) heart failure I50.43 Coronary artery disease with angina pectoris I25.119 PAD (peripheral artery disease) I73.9 Dyslipidemia E78.5 Cellulitis of right lower extremity L03.115 COPD exacerbation J44.1 Edema of right lower extremity R60.0 Cellulitis L03.90 Encounter for hospice care discussion Z71.89 Encounter for hospice care Z51.5
--- NOTE | 2023-05-27 10:39 | PM.DCS ---
Discharge Providers Date of Admission: 05/21/23 14:00 Date of Discharge: May 27, 2023 Attending Provider at Admission: Kobi Thakkar MD Attending Provider at Discharge: Kobi Thakkar MD Primary Care Provider: Jhoana Gross DO Diagnoses at Discharge Discharge Diagnosis (1) Acute respiratory failure with hypoxia: Status: Acute (2) Acute on chronic combined systolic (congestive) and diastolic (congestive) heart failure: Status: Acute (3) Coronary artery disease with angina pectoris: Status: Acute (4) PAD (peripheral artery disease): Status: Acute (5) Dyslipidemia: Status: Acute (6) Cellulitis of right lower extremity: Status: Acute (7) COPD exacerbation: Status: Acute (8) Edema of right lower extremity: Status: Acute (9) Cellulitis: Status: Acute (10) Encounter for hospice care discussion: Status: Acute (11) Encounter for hospice care: Status: Acute Reason for Visit Reason for Visit: sob Hospital Course Hospital Course Bridgette Malik is a 78 year old female with past medical history of COPD, active smoker, on CPAP at home, history of systolic diastolic CHF, history of NSTEMI, history of left BKA, hypertension, hyperlipidemia, who presents [facility] for shortness of breath and right lower extremity erythema and swelling. Currently patient is on BiPAP, daughter is at bedside, she tells me that she is here in the hospital because she feels short of breath, but is more comfortable on BiPAP is compliant with CPAP at home, daughter tells me that for the last few days, her right lower extremity has become more swollen erythematous, with active drainage, she is worried about recurrent cellulitis, patient does report anterior chest pain, nonradiating, associate with shortness of breath, no fevers, chills but does report a productive cough Patient was admitted to [facility] for acute hypoxic respiratory failure, acute hypercarbic respiratory failure, secondary to systolic and diastolic CHF, COPD, with concerns for right lower extremity. Patient had a prolonged hospitalization, requiring steroids, antibiotics, diuresis, BiPAP therapy. However patient continued to have shortness of breath, developing KAYLI, remained BiPAP dependent. Arrangements were being made for patient to go home on hospice. On 05/27/2023, patient voiced that she wanted to go home and she wanted to , she wanted all medical interventions to be stopped, she understood the morbidity and mortality associated with acute hypoxic hypercarbic respiratory failure, COPD, CHF, cellulitis. She understands that without BiPAP therapy at home, without adequate diuresis without steroids without antibiotics, without medical intervention she would likely . She understands morbidity mortality associated with her underlying COPD CHF, hypercarbic respiratory failure, she voiced understanding, all questions answered, shared decision making, she wants to proceed on home hospice. In Bridgette's own words she is ready to , she does not want any more medical interventions, she just wants to be at home and pass away comfortably. Physical Exam Const: COMMON NORMALS: no acute distress and patient oriented x3 Resp: COMMON NORMALS: normal respiratory effort, No retractions and No use of accessory muscles AUSCULTATION: crackles and wheezes Cardio: COMMON NORMALS: regular rate, regular rhythm, S1 normal heart sound present and S2 normal heart sound present RATE: regular rate RHYTHM: regular rhythm HEART SOUNDS: S1 normal heart sound present and S2 normal heart sound present GI: COMMON NORMALS: Normal to inspection, nondistended, normoactive bowel sounds present and non-tender Extremity: NARRATIVE EXTREMITY EXAM: 1+ edema Neuro: COMMON NORMALS: patient oriented x3 Psych: COMMON NORMALS: mental status grossly normal Urinary Catheter Management: Callahan Latex: Cath Placed During This Visit: yes Reason for Continuing Indwelling Catheter: Other Urinary Catheter Date of Insertion: 05/21/23 Urinary Catheter Time of Insertion: 20:40 Discharge Data Studies Completed and Pending Completed Studies During Hospitalization Category Date Time Status CT chest wo con [id number] Routine Cat Scan 05/26/23 08:00 Completed XR chest 1V portable [id number] Routine Exams 05/25/23 09:46 Completed XR chest 1V portable [id number] Stat Exams 05/21/23 12:17 Completed XR tibia fibula RT 2V [id number] Stat Exams 05/21/23 14:50 [place] [id number] Stat Ultrasound 05/21/23 14:50 Completed Pending at discharge Category Date Time Status Arterial Blood Gas W/O Coox AM LABS Lab 05/28/23 04:00 Ordered C Reactive Protein AM LABS Lab 05/28/23 04:00 Ordered NT Pro B Type Natriuretic Pept QAM Lab 05/28/23 06:00 Ordered Radiology Impressions Tibia/Fibula X-Ray 05/21/23 14:50 IMPRESSION: No acute findings. Chest X-Ray 05/25/23 09:46 IMPRESSION: Similar appearing right lower lobe infiltrate and effusion. Laboratory Results WBC 11.01 10^3/uL (3.29-11.43) 05/27/23 04:51 RBC 3.40 10^6/uL (3.85-5.65) L 05/27/23 04:51 Hgb 9.70 g/dL (11.27-16.99) L 05/27/23 04:51 Hct 31.2 % (36-47) L 05/27/23 04:51 MCV 91.8 fl (85-98) 05/27/23 04:51 MCH 28.5 pg (27-33) 05/27/23 04:51 MCHC 31.1 g/dL (30-55) 05/27/23 04:51 RDW 13.0 % (12.1-15.1) 05/27/23 04:51 Plt Count 177 10^3/cmm (157-399) 05/27/23 04:51 MPV 10.3 fL (7.4-10.4) 05/27/23 04:51 Neut % (Auto) 77.6 % 05/27/23 04:51 Lymph % (Auto) 13.5 % 05/27/23 04:51 Custer % (Auto) 7.4 % 05/27/23 04:51 Eos % (Auto) 0.1 % 05/27/23 04:51 Baso % (Auto) 0.1 % 05/27/23 04:51 Neut # (Auto) 8.55 10^3/uL (1.8-7.7) H 05/27/23 04:51 Lymph # (Auto) 1.5 10^3/uL (0.8-4.8) 05/27/23 04:51 [place] # (Auto) 0.8 10^3/uL (0.2-0.9) 05/27/23 04:51 Eos # (Auto) 0.0 10^3/uL (0.0-0.8) 05/27/23 04:51 Baso # (Auto) 0.0 10^3/uL (0.0-0.1) 05/27/23 04:51 Nucleated RBC % (auto) 0 % 05/27/23 04:51 Nucleated RBCs # 0.0 /100WBC 05/27/23 04:51 ESR 5 mm/hr (0-15) 05/21/23 13:02 PT 13.00 SECONDS (12.1-14.9) 05/24/23 05:22 INR 0.95 (0.8-1.2) 05/24/23 05:22 Specimen Type Arterial 05/26/23 13:07 Sample Site Brachial, right 05/26/23 13:07 ABG pH 7.32 (7.35-7.45) L 05/26/23 13:07 ABG pCO2 84.2 mmHg (35-45) H* 05/26/23 13:07 ABG pO2 71.4 mmHg (80.0-100.0) L 05/26/23 13:07 ABG PO2/FiO2 Ratio 0 05/26/23 13:07 ABG HCO3 42.8 mmol/L (22-26) H 05/26/23 13:07 ABG Base Excess 13.9 mmol/L (-2.0-2.0) H 05/26/23 13:07 Jean Test Pos 05/26/23 13:07 Hematocrit 30.3 % (37-47) L 05/26/23 13:07 Hgb O2 Saturation 89.5 % (95-100) L 05/21/23 12:20 Carboxyhemoglobin 1.8 %THgb (0.4-20.1) 05/21/23 12:20 Methemoglobin 0.7 % (0.4-1.5) 05/21/23 12:20 Total Hemoglobin 10.0 g/dL (12-16) L 05/21/23 12:20 O2 Delivery Device Bipap 05/26/23 13:07 O2 Liters/Min 4.0 % 05/25/23 11:21 FiO2 30.0 % 05/26/23 13:07 Tidal Volume 0.40 05/26/23 13:07 PEEP 8.0 cmH20 05/26/23 13:07 Lactation Specialist ID Martinero 05/26/23 13:07 Sodium 137 mmol/L (136-145) 05/27/23 04:51 Potassium 4.9 mmol/L (3.5-5.1) 05/27/23 04:51 Chloride 89 mmol/L (98-107) L 05/27/23 04:51 Carbon Dioxide 41 mmol/L (22-29) H 05/27/23 04:51 Anion Gap 11.9 (5-19) 05/27/23 04:51 BUN 59 mg/dL (8-23) H 05/27/23 04:51 Creatinine 1.7 mg/dL (0.5-0.9) H 05/27/23 04:51 GFR Calculation Not Reportable 05/27/23 04:51 Glucose 108 mg/dL (65-115) 05/27/23 04:51 Calculated Osmolality 301 mOsm/kg (285-295) H 05/27/23 04:51 Lactic Acid 1.9 mmol/L (0.5-2.2) 05/21/23 13:02 Calcium 8.7 mg/dL (8.5-10.5) 05/27/23 04:51 Phosphorus 4.2 mg/dL (2.5-4.5) 05/27/23 04:51 Magnesium 2.0 mg/dL (1.7-2.3) 05/27/23 04:51 Total Bilirubin 0.2 mg/dL (0.15-1.2) 05/24/23 05:22 AST 11 U/L (0-32) 05/24/23 05:22 ALT 10 U/L (0-33) 05/24/23 05:22 Alkaline Phosphatase 44 U/L (35-105) 05/24/23 05:22 Troponin T Baseline 44 ng/L (0-10) H 05/23/23 15:01 Troponin T 120 Minute 45.86 ng/L (0-10) H 05/21/23 15:32 Delta Troponin T -2.14 ABS# (0-10) L 05/21/23 15:32 Troponin T Hi Sens 6Hr 42.93 ng/L (0-10) H 05/23/23 21:07 Troponin T Hi Sens 6Hr Delta -1.07 ng/L (0-12) L 05/23/23 21:07 C-Reactive Protein 3.0 mg/L (0.0-4.9) 05/27/23 04:51 NT-Pro-B Natriuret Pep 6219 pg/mL (0-450) H 05/27/23 04:51 Total Protein 6.2 g/dL (6.6-8.7) L 05/24/23 05:22 Albumin 3.9 g/dL (3.5-5.2) 05/24/23 05:22 Globulin 2.3 g/dL (1.3-4.6) 05/24/23 05:22 Procalcitonin 0.07 ng/mL (0-0.5) 05/21/23 13:02 TSH 1.65 uIU/mL (0.27-4.20) 05/21/23 13:02 Urine Color Colorless (Yellow) 05/21/23 22:25 Urine Appearance Clear (CLEAR) 05/21/23 22:25 Urine pH 5 (5-7) 05/21/23 22:25 Ur Specific [place] 1.005 (1.005-1.030) 05/21/23 22:25 Urine Protein Neg (Negative) 05/21/23 22:25 Urine Glucose (UA) Norm (Normal) 05/21/23 22:25 Urine Ketones Negative (Negative) 05/21/23 22:25 Urine Blood Neg (Negative) 05/21/23 22:25 Urine Nitrate Negative (Negative) 05/21/23 22:25 Urine Bilirubin Neg (Negative) 05/21/23 22:25 Urine Urobilinogen Neg mg/dL (Negative) 05/21/23 22:25 Ur Leukocyte Esterase Negative (Negative) 05/21/23 22:25 Adenovirus (PCR) Not detected (NOT DETECT) 05/21/23 14:15 C. pneumoniae DNA (PCR) Not detected (NOT DETECT) 05/21/23 14:15 Coronavirus 229E (PCR) Not detected (NOT DETECT) 05/21/23 14:15 Human Metapneumovir PCR Not detected (NOT DETECT) 05/21/23 14:15 Influenza A (H1) PCR Not detected (NOT DETECT) 05/21/23 14:15 Influ A (H1/09) PCR Not detected (NOT DETECT) 05/21/23 14:15 Influenza A (H3) PCR Not detected (NOT DETECT) 05/21/23 14:15 Influenza Type A Ag negative (Negative) 05/21/23 12:34 Influenza Type A (PCR) Not detected (NOT DETECT) 05/21/23 14:15 Influenza Type B Ag negative (Negative) 05/21/23 12:34 Influenza Type B (PCR) Not detected (NOT DETECT) 05/21/23 14:15 M. pneumoniae (PCR) Not detected (NOT DETECT) 05/21/23 14:15 Parainfluenza 1 (PCR) Not detected (NOT DETECT) 05/21/23 14:15 Parainfluenza 2 (PCR) Not detected (NOT DETECT) 05/21/23 14:15 Parainfluenza 3 (PCR) Not detected (NOT DETECT) 05/21/23 14:15 Parainfluenza 4 (PCR) Not detected (NOT DETECT) 05/21/23 14:15 RSV Type A (PCR) Not detected (NOT DETECT) 05/21/23 14:15 RSV Type B (PCR) Not detected (NOT DETECT) 05/21/23 14:15 Entero/Rhino (PCR) Not detected (NOT DETECT) 05/21/23 14:15 SARS-CoV-2 (PCR) Not detected (NOT DETECT) 05/21/23 14:15 SARS-CoV-2 Ag (Rapid) negative (Negative) 05/21/23 12:34 Vitals Last Vital Signs Temp 97.1 F L 05/27/23 07:32 Pulse 61 05/27/23 08:00 Resp 18 05/27/23 08:00 BP 150/72 05/27/23 07:32 Pulse Ox 100 05/27/23 08:00 O2 Del Method Nasal Cannula 05/27/23 08:00 O2 Flow Rate 4 05/27/23 08:00 FiO2 30 05/27/23 04:10 Discharge Plan Discharge Patient Disposition: Hospice - Home Condition: Stable Prescriptions: Continued fluticasone propion-salmeterol [Advair Diskus] 250-50 mcg/dose blister with device 1 inh inhalation BID Qty: 60 5RF fluticasone propionate [Flonase Allergy Relief] 50 mcg/actuation spray,suspension 2 spray INTRANASAL DAILY PRN (Reason: Allergy Symptoms) Rx Instructions: administer into each nostril albuterol sulfate 2.5 mg /3 mL (0.083 %) solution for nebulization 2.5 mg inhalation QID PRN (Reason: Shortness Of Breath Or Wheezing) Ventolin HFA 90 mcg/actuation HFA aerosol inhaler 2 puff inhalation Q6H PRN (Reason: Shortness Of Breath) Discontinued Plavix 75 mg tablet 75 mg PO QAM Qty: 90 1RF clindamycin HCl 150 mg capsule 150 mg PO BID 10 Days Qty: 20 0RF Rx Instructions: for 10 days (rx filled 05/11/23) isosorbide mononitrate 30 mg tablet extended release 24 hr 30 mg PO QAM Qty: 90 2RF multivitamin Tablet 1 tab PO DAILY atorvastatin 40 mg tablet 40 mg PO BEDTIME nitroglycerin [Nitro-Time] 2.5 mg capsule, extended release 2.5 mg PO DAILY PRN (Reason: chest pains) hydralazine 25 mg tablet 25 mg PO TID hydrochlorothiazide 25 mg tablet 25 mg PO DAILY Hold Instructions: Resume on 04/07/23. Rx Instructions: on hold per daughter 05/21/23 Tylenol Ex Str Rapid Release 500 mg Tablet 1,000 mg PO BEDTIME primidone 50 mg tablet 25 mg PO BEDTIME amlodipine 5 mg tablet 5 mg PO QAM montelukast 10 mg tablet 10 mg PO BEDTIME lisinopril 5 mg tablet 5 mg PO QAM metoprolol tartrate 25 mg tablet 25 mg PO BID No Action (DME) NEBULIZER TUBING Qty: 1 0RF Rx Instructions: As directed (DME) CPAP set to 6-16 with mask and supplies See Rx Instructions .Route .MEDSUPPLY Qty: 1 0RF Rx Instructions: As directed Discharge Orders: Discharge Order (Routine); Ordered 05/27/23 Ordered By: Kobi Thakkar Referrals: Jhoana Gross DO [Primary Care Provider] - Discharge Diet: Regular Discharge Activity: Resume usual activity Patient Instructions: Hospice Care (GEN) Discharge Attestations Time Spent in Discharge Care*: greater than 30 min Quality Metrics Clinical Quality Measures [ No reported AMI, CVA or VTE this stay] Coding Level of Care Code 23967 Total time (in minutes) for Discharge: 45 Diagnoses Acute respiratory failure with hypoxia J96.01 Acute on chronic combined systolic (congestive) and diastolic (congestive) heart failure I50.43 Coronary artery disease with angina pectoris I25.119 PAD (peripheral artery disease) I73.9 Dyslipidemia E78.5 Cellulitis of right lower extremity L03.115 COPD exacerbation J44.1 Edema of right lower extremity R60.0 Cellulitis L03.90 Encounter for hospice care discussion Z71.89 Encounter for hospice care Z51.5
[2023-05-28] VITALS (7 sets, daily range): BP systolic 151–159; BP diastolic 55–65; PULSE 60–85; RESP 14–21; TEMP 36.4–36.8; O2SAT 95–99; BMI 29.4
[2023-05-28] MEDS: morphine 4 mg/mL SDV 1 mL 1 MG IVP ×3 (00:54→11:18)
[2023-05-28] MEDS: metoprolol tartrate 25 mg Tablet PO (09:46)
[2023-05-28] MEDS: predniSONE 20 mg Tablet 40 MG PO (09:46)
[2023-05-28] MEDS: clopidogrel 75 mg Tablet PO (09:46)
[2023-05-28] MEDS: LORazepam 2 mg/mL INJ 10 mL MDV 0.5 MG IVP (11:14)
== END 2023-05-28 11:57 | disposition hospice, home (50) | DRG 189 ==
LOC: ER 14:07 → MEDSURG 15:35
PROVIDERS: Admitting Provider Family Medicine; Emergency Provider Emergency Medicine; PCP Family Medicine; Visit Provider Family Medicine
DX: J96.22 Acute and chronic respiratory failure with hypercapnia (principal); I50.43 Acute on chronic combined systolic (congestive) and diastolic (congestive) heart failure; I13.0 Hypertensive heart and chronic kidney disease with heart failure and stage 1 through stage 4 chronic kidney disease, or unspecified chronic kidney disease; J44.1 Chronic obstructive pulmonary disease with (acute) exacerbation; L03.115 Cellulitis of right lower limb; J96.21 Acute and chronic respiratory failure with hypoxia; F17.210 Nicotine dependence, cigarettes, uncomplicated; Z99.81 Dependence on supplemental oxygen; N18.9 Chronic kidney disease, unspecified; Z99.89 Dependence on other enabling machines and devices; R05.3 Chronic cough; I25.2 Old myocardial infarction; I73.9 Peripheral vascular disease, unspecified; I25.10 Atherosclerotic heart disease of native coronary artery without angina pectoris; Z95.5 Presence of coronary angioplasty implant and graft; I25.5 Ischemic cardiomyopathy; E78.5 Hyperlipidemia, unspecified; K21.9 Gastro-esophageal reflux disease without esophagitis; Z89.512 Acquired absence of left leg below knee; Z66 Do not resuscitate; Z51.5 Encounter for palliative care; R60.0 Localized edema
CPT/HCPCS: 36415; 36600; 51702; 71045; 71250; 73590; 80048; 80053; 81003; 82803; 82805; 83605; 83735; 83880; 84100; 84145; 84443; 84484; 85025; 85610; 85651; 86140; 87040; 87070; 87106; 87205; 87426; 87486; 87581; 87633; 87804; 93005; 93971; 94640; 94660; 96365; 96367; 96372; 96375; 99291; C9113; J0456; J0692; J0696; J1450; J1650; J1940; J2020; J2060; J2270; J2405; J2920; J2930; J7050; J7512; J7613